=== PATIENT | male | born 1980 | race Caucasian/White ===

== ENCOUNTER 2019-09-07 12:47 | Emergency (ER) | payer MEDICAID, SELFPAY ==
[2019-09-07 12:48] VITALS: BP 159/75; PULSE 91; RESP 16; TEMP 36.1; BMI 37.9
[2019-09-07 13:57] LABS: Absolute Lymphocyte Count 1.84 X10^3/uL (0.83-4.51); Absolute Neutrophil Count 2.4 X10^3/uL (2.0-7.7); Basophil# 0.03 X10^3/uL; Basophil% 0.6 % (0-1); Eosinophil# 0.15 X10^3/uL; Hematocrit 44.8 % (40-54); Hemoglobin 15.2 g/dL (13.0-16.5); Lymphocyte # 1.84 X10^3/ul (4.0); Lymphocyte % 37.2 % (19-41); Mean Corp Hgb Conc 33.9 g/dL (32-36); Mean Corpuscular Hgb 31.6 pg (27.0-32.0); Mean Corpuscular Volume 93.1 fL (80-94); Monocyte# 0.47 X10^3/uL; Monocyte% 9.5 % (0-10); NRBC Flagged by Analyzer 0 % (0-5); Neutrophil # 2.37 X10^3/uL (2.7-7.7); Neutrophil % 48.1 % (47-70); Platelet Count 211 K/mm3 (150-450); RBC Distribution Width CV 12.7 % (11.6-14.6); RBC Distribution Width SD 43.2 fl (35.1-43.9); Red Blood Count 4.81 M/mm3 (4.6-6.2); White Blood Count 4.9 K/mm3 (4.4-11.0)
--- NOTE | 2019-09-07 14:02 | ED.DCSUM_ITS ---
History of Present Illness Chief Complaint: Lower Extremity Injury Informant: Patient Narrative: Patient presents the emergency department with lower extremity swelling redness and pain in the left lateral thigh. Unknown trauma. Patient reportedly has had seen his PCP for 2 years. Last blood work that was done was about a year ago. Patient denies bumping his leg stumbling tripping or self harming. Past Medical History - Allergies and Home Meds Allergies/Adverse Reactions: Allergies No Known Allergies Allergy (Verified 09/07/19 12:50) Primary Care Physician: Kierra Jama MD [NON-STAFF] - As soon as possible Smoking Status: Current every day smoker Review of Systems General: Denies: Chills, Fever, Sweats Eyes: Denies: Visual changes - bilaterally, Diplopia ENT: Denies: Rhinorrhea, Sore throat Cardiovascular: Denies: Chest pain, Palpitations Respiratory: Denies: Dyspnea, Cough, Dyspnea on exertion Gastrointestinal: Denies: Abdominal pain, Nausea, Vomiting, Diarrhea, Melena, He matochezia Genitourinary: Denies: Dysuria, Hematuria, Frequency Musculoskeletal: Reports: Swelling, Extremity Pain. Denies: Back pain Skin: Reports: Rash. Denies: Wounds Neurological: Denies: Headache, Weakness, Numbness Physical Exam Vital Signs/Narrative: Vital Signs Temp Pulse Resp BP 09/07/19 12:48 97.0 F L 91 16 159/75 H Inital Vital Signs reviewed: Yes General: Well nourished, Well developed, No Acute Distress Head: Normocephalic, Atraumatic Eyes: Perrl, EOMI ENT: Moist mucous membranes, No rhinorrhea Neck: Supple, Nontender Cardiovascular: Regular rate, Regular rhythm, No murmurs Respiratory: No distress, CTA bilaterally, Chest nontender Abdomen: Soft, Nontender, Nondistended, Normal bowel sounds Back: Nontender, Normal Inspection Extremities: Tenderness - Patient has tenderness to palpation over the inferior lateral left thigh. There is no ecchymosis. There is no swelling erythema., Edema - Patient has bilateral 1+ pitting edema of the lower extremity. There is redness but it appears to be due to capillary break it is not blanching and gives that appearance. It is not necessarily warm and does not give any suggestion of cellulitis. Skin: Normal color, No rash Neurological: Alert, Oriented x3, Cranial nerves II-XII grossly intact, Normal Strength, Normal Sensation Psychological: Normal affect, Normal Mood Diagnostic/Tx/Re-eval - Medical Decision Making Basic labs were essentially normal. I will place the patient on a diuretic for the next few days. This should help with the lower extremity edema. He will most likely benefit from some compression stockings. He is a heavy smoker and morbidly obese and I suspect he is developing venous insufficiency. As far as the lateral thigh pain I do not think this represents DVT as it is lateral and he has symmetric edema. There is no known trauma. He is able to ambulate so I do not think he has a fractured femur. Patient will be encouraged to follow-up with primary care. ED Disposition - Plan for ED Patient: Disposition: Home or Assisted Living Diagnosis: Thigh pain, Lymphedema Instructions: Lymphedema Prescriptions: Furosemide [Lasix] 40 mg PO DAILY #5 tab Prescription Printed Referrals: Kierra Jama MD [NON-STAFF] - As soon as possible Additional Instructions: I would strongly consider compression stockings to help with the removal of the edema.
[2019-09-07 14:13] LABS: ALB/GLOB Ratio 0.9 RATIO (0.9-2.4); AST(SGOT) 64 U/L (15-37); Alanine Aminotransfer ALT/SGPT 126 U/L (16-61); Albumin, Serum 3.5 g/dL (3.2-5.0); Alkaline Phosphatase 152 U/L (45-117); Anion Gap 4 (5-15); BUN 11 mg/dL (7-18); BUN/Creat Ratio 14.3 RATIO (10-20); Calcium,Total 8.8 mg/dL (8.5-10.1); Chloride 101 mmol/L (98-107); Creatinine, Serum 0.77 mg/dL (0.70-1.30); EST Glomerular Filtration Rate 119 mL/min (>60); Est Glom Filt Rate - Afr Amer 143 mL/min (>60); Estimated Creatinine Clearance 134.46 ml/min; Globulin 3.8 g/dL (2.2-4.2); Glucose 111 mg/dL (74-106); Protein, Total 7.3 g/dL (6.4-8.2); Sodium Level 138 mmol/L (136-145)
--- NOTE | 2019-09-07 14:21 | RAD_ITS ---
STUDY: X-RAY - LEFT FEMUR REASON FOR STUDY: Male, 39 years old. Left leg pain, pt states for awhile -- NKI TECHNIQUE: 4 view(s) of the femur. COMPARISON: None. FINDINGS: Normal visualized femur. Normal visualized soft tissue structure. RAD/Femur Min 2 Views IMPRESSION: Normal x-ray examination of the femur. Electronically Signed: Will Wren, at 14:55 EDT , Service support ,
== END 2019-09-07 15:16 | disposition home or self-care (01) ==
PROVIDERS: Emergency Provider Emergency Medicine; PCP Family Medicine
DX: M79.652 Pain in left thigh (principal); I89.0 Lymphedema, not elsewhere classified; E66.01 Morbid (severe) obesity due to excess calories; F17.200 Nicotine dependence, unspecified, uncomplicated
CPT/HCPCS: 73552; 80053; 85025; 99282

== ENCOUNTER 2022-12-11 17:10 | Inpatient (IN) | payer MEDICAID, SELFPAY ==
[2022-12-11] VITALS (11 sets, daily range): BP systolic 118–140; BP diastolic 59–96; PULSE 71–118; RESP 14–26; TEMP 36.5–38.6; O2SAT 92–96; BMI 37.1
--- NOTE | 2022-12-11 17:29 | EKG12_ITS ---
Test Reason : WEAKNESS/CONFUSION Blood Pressure : / mmHG Vent. Rate : 085 BPM Atrial Rate : 085 BPM P-R Int : 184 ms QRS Dur : 106 ms QT Int : 334 ms P-R-T Axes : 015 040 029 degrees QTc Int : 397 ms Normal sinus rhythm Low voltage QRS Incomplete right bundle branch block Borderline ECG Confirmed by TRENA TONY, RG ([id number]), editor index ROSEMARY PRADO ([id number]) on 12/13/2022 10:17:20 AM Referred By: Confirmed By:RG ALBRECHT MD
--- NOTE | 2022-12-11 17:34 | EX.ED.DYSGE1 ---
HPI History of Present Illness Chief Complaint: Fever Informant: family Onset/Context/Timing Onset: Today Narrative Narrative: Patient presents with family secondary to fever and change in activity. Patient reportedly ate breakfast this morning and was his normal self. 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 When she picked him up at home she checked his temperature and was found to be 103. He was given Tylenol at 230 this afternoon. He did drink 2 bottles of water with electrolytes. Patient is had increasing sleepiness. Family is concerned for possible UTI or pneumonia. He has had mild cough. There reportedly were no known ill exposures at work. [facility] Medical History Autism COPD (chronic obstructive pulmonary disease) High cholesterol OCD (obsessive compulsive disorder) Home Medications ascorbic acid (vitamin C) 500 mg tablet (Vitamin C) 1,000 mg PO DAILY@0800 04/05/13 [History Last Taken 03/05/16] benztropine 2 mg tablet 1 mg PO BID 04/05/13 [History Last Taken 03/05/16] divalproex 500 mg tablet,extended release 24 hr 1,000 mg PO QHS 04/05/13 [History Last Taken 03/04/16] divalproex 500 mg tablet,extended release 24 hr 500 mg PO DAILY@0800 04/05/13 [History Last Taken 03/05/16] docusate sodium 100 mg capsule (DOK) 200 mg PO BID 04/05/13 [History Last Taken 03/05/16] gabapentin 300 mg capsule 300 mg PO BID 04/05/13 [History Last Taken 03/05/16] loratadine 10 mg tablet (Allergy Relief (loratadine)) 10 mg PO DAILY 04/05/13 [History Last Taken 03/05/16] montelukast 10 mg tablet 10 mg PO QHS 04/05/13 [History Last Taken 03/04/16] vitamin E (dl, acetate) 180 mg (400 unit) capsule 400 units PO BID 04/05/13 [History Last Taken 03/05/16] bupropion HCl 150 mg 24 hr tablet, extended release 150 mg PO DAILY 03/31/14 [History Last Taken 03/05/16] Risperdal 1.5 mg PO BID 07/29/15 [History Last Taken 03/05/16] quetiapine 50 mg tablet (Seroquel) 150 mg PO QHS 03/05/16 [History Last Taken 03/05/16] Gabapentin [Gralise] 600 mg PO QHS 03/30/16 [History Last Taken Unknown] albuterol sulfate 90 mcg/actuation aerosol inhaler (ProAir HFA) 2 puff inhalation Q4H PRN PRN Shortness Of Breath 03/30/16 [History Last Taken Unknown] Allergy/AdvReac Type Severity Reaction Status Date / Time No Known Allergies Allergy Verified 12/11/22 17:11 Social History Smoking Status: Current every day smoker tobacco type: cigarettes ROS ROS ED ROS Narrative Patient sleeping throughout interview and exam. History obtained by family. EXAM Physical Exam Const Vital Signs: 12/11/22 17:12 12/11/22 17:59 12/11/22 18:01 Temperature 101.5 F H 101.5 F H Temperature Source Oral Oral Pulse Rate 101 H 101 H Respiratory Rate 26 H 26 H Respiratory Effort Respiratory Pattern Blood Pressure 129/77 H 129/77 H Blood Pressure Mean 94 94 Pulse Ox 92 92 Oxygen Delivery Method Room Air Room Air Room Air Oxygen Flow Rate (L/min) 12/11/22 20:48 12/11/22 20:48 12/11/22 18:14 Temperature 98.8 F Temperature Source Temporal Pulse Rate 98 116 H Respiratory Rate 16 14 Respiratory Effort Normal Non-Labored Respiratory Pattern Normal Blood Pressure 140/64 H Blood Pressure Mean 89 Pulse Ox 96 92 Oxygen Delivery Method Nasal Cannula Room Air Oxygen Flow Rate (L/min) 2 12/11/22 19:14 12/11/22 20:14 12/11/22 21:14 Temperature 98 F 97.8 F 98 F Temperature Source Temporal Temporal Temporal Pulse Rate 114 H 118 H 115 H Respiratory Rate 14 14 16 Respiratory Effort Respiratory Pattern Blood Pressure 140/59 H 122/96 H 118/63 Blood Pressure Mean 86 104 81 Pulse Ox 92 92 93 Oxygen Delivery Method Room Air Room Air Nasal Cannula Oxygen Flow Rate (L/min) 2 12/11/22 22:00 12/11/22 22:01 Temperature 97.8 F 98 F Temperature Source Temporal Temporal Pulse Rate 109 H 111 H Respiratory Rate 14 14 Respiratory Effort Respiratory Pattern Blood Pressure 123/78 H 131/81 H Blood Pressure Mean 93 97 Pulse Ox 95 96 Oxygen Delivery Method Nasal Cannula Nasal Cannula Oxygen Flow Rate (L/min) 2 2 Positive well nourished and well developed General Appearance ED: well developed HEENT Reports moist mucous membranes Neck no lymphadenopathy Chest Wall inspection of chest normal and palpation of chest normal Resp normal respiratory effort Resp Narrative: Diminished lung sounds bilateral bases. Cardio regular rhythm Rate: tachycardic GI GI Narrative: Abdomen soft and nontender. Extremity Extremity Narrative: Superficial abrasions noted over the knees bilaterally. No evidence of infection. Neuro Neuro Narrative: Patient sleeping at the time of my exam initial exam. MDM MDM MDM Narrative Medical decision making narrative: Sepsis work-up is initiated to include urinalysis, blood work, cultures. Swab for COVID and influenza is sent. Chest x-ray obtained given the patient's cough to evaluate for pneumonia. Patient had been given Tylenol prior to arrival and was given ibuprofen to help with fever control. Lab Data Attestation: I reviewed the patient's lab results. Labs: Laboratory Results - last 24 hr 12/11/22 12/11/22 12/11/22 17:50 17:50 17:50 WBC 15.2 H RBC 4.65 Hgb 14.5 Hct 41.4 MCV 89.0 MCH 31.2 MCHC 35.0 RDW Std Deviation 40.7 RDW Coeff of Dony 12.5 Plt Count 202 MPV 9.7 Immature Gran % (Auto) [employer]IST Neut % (Auto) H[employer] SERVICES SPECIALIST Lymph % (Auto) HUMAN RESOURCES SERVICES SPECIALIST Valley % (Auto) HUM[employer] SERVICES SPECIALIST Eos % (Auto) H[employer] SERVICES SPECIALIST Baso % (Auto) H[employer] SERVICES SPECIALIST Absolute Neuts (auto) 10.6 H Absolute Lymphs (auto) 2.28 Total Counted 100 Neutrophils % (Manual) 56 Band Neutrophils % 8 H Lymphocytes % (Manual) 15 L Monocytes % (Manual) 14 H Eosinophils % (Manual) 1 Metamyelocytes % 5 H Myelocytes % 1 H Nucleated RBC % 0.1 Diff Path Review May foll Platelet Estimate ADEQUATE RBC Morphology NORM C+C PT 13.1 INR 1.0 APTT 29.6 Sodium 133 L Potassium 4.5 Chloride 96 L Carbon Dioxide 31.0 Anion Gap 6 BUN 13 Creatinine 0.80 Est GFR (MDRD) Af Amer 136 Est GFR (MDRD) Non-Af 112 BUN/Creatinine Ratio 16.4 Glucose 115 H Lactic Acid Calcium 9.7 Total Bilirubin 0.30 AST 120 H ALT 168 H Alkaline Phosphatase 339 H Total Protein 8.1 Albumin 3.6 Globulin 4.5 H Albumin/Globulin Ratio 0.8 L Urine Color Urine Clarity Urine pH Ur Specific Everly Urine Protein Urine Glucose (UA) Urine Ketones Urine Occult Blood Urine Nitrite Urine Bilirubin Urine Urobilinogen Ur Leukocyte Esterase Urine RBC Urine WBC Ur Squamous Epith Cells Urine Bacteria Urine Mucus 12/11/22 12/11/22 17:50 19:00 WBC RBC Hgb Hct MCV MCH MCHC RDW Std Deviation RDW Coeff of Dony Plt Count MPV Immature Gran % (Auto) Neut % (Auto) Lymph % (Auto) Valley % (Auto) Eos % (Auto) Baso % (Auto) Absolute Neuts (auto) Absolute Lymphs (auto) Total Counted Neutrophils % (Manual) Band Neutrophils % Lymphocytes % (Manual) Monocytes % (Manual) Eosinophils % (Manual) Metamyelocytes % Myelocytes % Nucleated RBC % Diff Path Review Platelet Estimate RBC Morphology PT INR APTT Sodium Potassium Chloride Carbon Dioxide Anion Gap BUN Creatinine Est GFR (MDRD) Af Amer Est GFR (MDRD) Non-Af BUN/Creatinine Ratio Glucose Lactic Acid 1.4 Calcium Total Bilirubin AST ALT Alkaline Phosphatase Total Protein Albumin Globulin Albumin/Globulin Ratio Urine Color Yellow Urine Clarity Clear Urine pH 7.0 Ur Specific Everly 1.010 Urine Protein 30 H Urine Glucose (UA) Normal Urine Ketones 5 H Urine Occult Blood Negative Urine Nitrite Negative Urine Bilirubin Negative Urine Urobilinogen 4 H Ur Leukocyte Esterase 25 H Urine RBC 0 SEEN Urine WBC 0-5 SEEN Ur Squamous Epith Cells 0 SEEN Urine Bacteria 0 SEEN Urine Mucus 0 SEEN Radiography Chest X-Ray - ED: 1 View, Read by ED Physician, Normal, Heart, Lungs and Mediastinum Diagnostic Testing: Clinical Impression(s) from Imaging Studies Chest X-Ray 12/11/22 17:53 IMPRESSION: Question mild vascular congestion. Electronically Signed: Misha Horner DO at 18:06 EDT Reading Location ID and State: [facility] / [place] Tel [phone], Service support , Gallbladder Ultrasound 12/11/22 19:18 IMPRESSION: 1. Limited study due to bowel gas and patient condition. The pancreatic tail and lower pole of the right kidney are poorly visualized. 2. Otherwise normal right upper quadrant abdominal ultrasound. Electronically Signed: Misha Horner DO at 20:19 EDT , Abdomen/Pelvis CT 12/11/22 20:34 IMPRESSION: 1. Prominent liver with geographic fatty infiltration. There is no focal mass. Scattered granulomata are noted. 2. Splenomegaly with calcified granuloma. 3. Otherwise normal CT of the abdomen and pelvis. 4. Volume loss in the atelectasis at the left lung base with calcified pleural plaque. Question asbestos exposure. Electronically Signed: Misha Horner DO at 21:20 EDT , EKG Initial EKG: Attestation: I personally reviewed and interpreted this EKG as follows: Interpretation: Sinus Rhythm (Sinus 85 with no acute ischemia.) Treatment and Re-Evaluation :: CBC reveals a white count of 15.2 with 8 bands noted. Coags unremarkable. Chemistry studies reveal a sodium of 133 and a chloride of 96. Renal function is normal. AST is 120 and ALT is 168. Alk phos is 339. Lactic acid is 1.4. Urinalysis reveals no evidence of acute infection. Chest x-ray per my interpretation reveals no evidence of infiltrate. I did review prior labs. 3 years ago the patient had labs here that did reveal elevated LFTs. In September 2021 he had labs at [facility] that revealed normal LFTs. In July 2022 he was seen in [place] and had elevated LFTs with a negative ultrasound of his gallbladder at that time. Gallbladder ultrasound obtained tonight and is unremarkable. When he went back to reevaluate the patient he is now alert and appropriate. He denies complaints. His abdomen is soft with no focal tenderness. When I take him off of the 2 L of oxygen nursing staff placed him on he drops to 87% on room air. He is placed back on oxygen. CT scan of the abdomen and pelvis is obtained and reveals no acute findings. He does have a small scabbed wound to the right shoulder posteriorly, but nothing that appears infected to cause a temperature of 103 and a leukocytosis with bandemia. With patient having mild hypoxia he will require observation for further treatment. Lung sounds are clear I do not feel that he needs breathing treatments at this time. I will speak with the hospitalist. Addendum: When the hospitalist came to the ER to see the patient he took the patient off of oxygen. After 8 minutes patient still had sats in the mid to high 90s. When he called with this information were back and took the patient off oxygen again and watched him for approximately 15 to 20 minutes. His O2 sat remained around 91 to 92%. I did asked nursing staff to ambulate the patient. With ambulation his O2 sat dropped to 78% on room air. He was placed back on nasal cannula and patient will be admitted observation status. Discharge Plan Dx/Rx/DC Orders Clinical Impression: Hypoxia, URI (upper respiratory infection), Fever, Leukocytosis, Bandemia Disposition [facility]
[2022-12-11] MEDS: Ibuprofen 600 MG Tablet PO (17:42)
[2022-12-11] MEDS: 0.9% Normal Saline 1,000 ML 150 ML IV (17:47)
--- NOTE | 2022-12-11 17:53 | RAD_ITS ---
STUDY: X-RAY CHEST REASON FOR EXAM: Male, 42 years old. Cough and fever. TECHNIQUE: Single AP portable view of the chest. COMPARISON: June 04, 2016. FINDINGS: There is minimal perihilar interstitial prominence. No consolidation or mass. There is no demonstrated pleural abnormality. Normal size heart. Normal mediastinum and ajh. Normal visualized pulmonary arteries. Normal visualized aortic arch and descending thoracic aorta. Normal visualized thoracic spine. Normal visualized ribs, clavicles, and shoulders. There is no demonstrated abnormality of the visualized soft tissue structures of the upper abdomen. RAD/Chest 1 View (Portable) IMPRESSION: Question mild vascular congestion. Electronically Signed: Misha Horner DO at 18:06 EDT ,
[2022-12-11 18:02] LABS: Hematocrit 41.4 % (40-54); Hemoglobin 14.5 g/dL (13.0-16.5); Mean Corpuscular Hgb 31.2 pg (27.0-32.0); Mean Platelet Vol. 9.7 fl (6.2-12.0); NRBC Flagged by Analyzer 0.1 % (0-5); POSITIVE DIFFERENTIAL YES; Platelet Count 202 K/mm3 (150-450); RBC Distribution Width CV 12.5 % (11.6-14.6); RBC Distribution Width SD 40.7 fl (35.1-43.9); Red Blood Count 4.65 M/mm3 (4.6-6.2); White Blood Count 15.2 K/mm3 (4.4-11.0)
[2022-12-11 18:16] LABS: Prothrombin Time (Protime)PT. 13.1 SECONDS (11.7-14.9)
[2022-12-11 18:17] LABS: Partial Thromboplast Time 29.6 Seconds (24.1-36.2)
[2022-12-11 18:29] LABS: ALB/GLOB Ratio 0.8 RATIO (0.9-2.4); AST(SGOT) 120 U/L (15-37); Alanine Aminotransfer ALT/SGPT 168 U/L (16-61); Albumin, Serum 3.6 g/dL (3.2-5.0); Alkaline Phosphatase 339 U/L (45-117); Anion Gap 6 (5-15); BUN 13 mg/dL (7-18); BUN/Creat Ratio 16.4 RATIO (10-20); Calcium,Total 9.7 mg/dL (8.5-10.1); Chloride 96 mmol/L (98-107); EST Glomerular Filtration Rate 112 mL/min (>60); Est Glom Filt Rate - Afr Amer 136 mL/min (>60); Globulin 4.5 g/dL (2.2-4.2); Glucose 115 mg/dL (74-106); Potassium 4.5 mmol/L (3.5-5.1); Protein, Total 8.1 g/dL (6.4-8.2); Sodium Level 133 mmol/L (136-145)
[2022-12-11 18:30] LABS: Lactic Acid 1.4 mmol/L (0.4-1.9)
[2022-12-11 18:31] LABS: Differential Indicated SCAN CRITERIA MET
[2022-12-11 18:53] LABS: Scan Smear per Review Criteria MANUAL DIFF
[2022-12-11 18:58] LABS: Eosinophil 1 % (0-5); Lymphocyte 15 % (19-41); Metamyelocyte 5 % (0-1); Monocyte 14 % (0-10); Myelocyte 1 % (0-0); Neutrophil-Band 8 % (0-5); Neutrophil-Segmented 56 % (47-70); Platelet Estimate ADEQUATE (ADEQ); Total Cells Counted 100 (MANUAL DIFF)
[2022-12-11 18:59] LABS: Red Cell Morphology NORM C+C NORMAL (NORM C&C)
[2022-12-11 19:01] LABS: Absolute Lymphocyte Count 2.28 X10^3/uL (0.83-4.51); Lymphocyte # 2.28 X10^3/ul (0.83-4.51)
[2022-12-11 19:02] LABS: Absolute Neutrophil Count 10.6 X10^3/uL (2.0-7.7); Neutrophil # 10.64 X10^3/uL (2.7-7.7)
[2022-12-11 19:03] LABS: Monocyte# 2.13 X10^3/uL
[2022-12-11 19:11] LABS: Bacteria 0 SEEN /hpf (None Seen); Mucous, Urine 0 SEEN /hpf (<or=2+); Red Blood Cells-Urine 0 SEEN /hpf (0-5); Squamous Epithelial Cells - UA 0 SEEN /hpf (0-5)
[2022-12-11 19:16] LABS: Color, Urine Yellow (Yellow); Glucose, Dipstick Normal (Normal); Ketone-Dipstick 5 mg/dl (Negative); Leukocyte Esterase-Dipstick 25 /ul (Negative); Nitrite-Dipstick Negative (Negative); Occult Blood-Urine Negative /ul (Negative); Protein-Dipstick 30 mg/dl (Negative); Urine Bilirubin Dipstick Negative (Negative); Urine Clarity Clear (Clear); Urine Urobilinogen 4 mg/dl (Normal)
--- NOTE | 2022-12-11 19:18 | US_ITS ---
STUDY: ABDOMINAL ULTRASOUND - RIGHT UPPER QUADRANT REASON FOR VISIT: Male, 42 years old fever. Abnormal laboratories. TECHNIQUE: Ultrasound evaluation of the right upper quadrant was performed with real-time and static moffett-scale imaging. TECHNICAL QUALITY: Examination limited due to the patient?s condition. COMPARISON: None. FINDINGS: Liver: The liver measures 17.6 cm. There is normal echogenicity of the liver. The bile ducts are within normal limits. There is hepatic color flow. The direction of portal flow is hepatopetal. There is no demonstrated mass lesion. Gallbladder: Normal distended gallbladder. The gallbladder wall measures 3 mm. There is a negative sonographic Hernández''s sign. There is no pericholecystic fluid. There are no gallstones. Common Bile Duct (C.B.D.): The common bile duct measures 4 mm. Pancreas: Normal size of the head and body of the pancreas. Pancreatic tail is obscured. There is normal echogenicity of the pancreas. There is no demonstrated pancreatic mass or cyst. Right Kidney: The lower pole of the right kidney is partially obscured by bowel gas. The right kidney measures 11.6 cm. Normal renal cortex. The right cortex measures 1.4 cm. There is no demonstrated renal mass or cyst. There is no right hydronephrosis. US/Gallbladder IMPRESSION: 1. Limited study due to bowel gas and patient condition. The pancreatic tail and lower pole of the right kidney are poorly visualized. 2. Otherwise normal right upper quadrant abdominal ultrasound. Electronically Signed: Misha Horner DO at 20:19 EDT ,
[2022-12-11 19:52] LABS: White Blood Cells 0-5 SEEN /hpf (0-5)
--- NOTE | 2022-12-11 20:34 | CT_ITS ---
STUDY: CT ABDOMEN AND PELVIS WITH CONTRAST REASON FOR EXAM: Male, 42 years old. Fever and abdominal pain. RADIATION DOSAGE (If Supplied By Facility): CTDIvol = ( 20.31 ) mGy, DLP = ( 1426.53 ) mGycm TECHNIQUE: IV 100mL [id number]-[id number] was administered. Transaxial images were obtained from the dome of the diaphragm to the symphysis pubis. Multiplanar coronal and sagittal images were reformatted. Individualized Dose Optimization Techniques Were Used For This CT. COMPARISON: Abdominal ultrasound, December 11, 2022. FINDINGS: Dependent changes at both lung bases, left greater than right. There is posterior pleural calcifications noted at the left lung base. Right mediastinal shift to the left. The heart is normal in size. Geographic fatty infiltration of the mildly prominent liver with scattered calcified granulomata. There is no enhancing mass. Normal gallbladder and extrahepatic biliary system. There are multiple benign calcified granulomata of the enlarged spleen. Normal pancreas. Normal bilateral adrenal glands. Normal visualized stomach. Normal small intestine. Normal colon. Question prior appendectomy. Normal abdominal aorta. 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 No retroperitoneal adenopathy. Normal right kidney. Normal left kidney. Normal urinary bladder. Normal prostate. No pelvic lymphadenopathy. No free air or free fluid is seen within the abdominal cavity. Normal abdominal wall. There are diffuse degenerative changes of the visualized lumbar spine. CT/Abdomen/Pelvis W IV Cont ONLY IMPRESSION: 1. Prominent liver with geographic fatty infiltration. There is no focal mass. Scattered granulomata are noted. 2. Splenomegaly with calcified granuloma. 3. Otherwise normal CT of the abdomen and pelvis. 4. Volume loss in the atelectasis at the left lung base with calcified pleural plaque. Question asbestos exposure. Electronically Signed: Misha Horner DO at 21:20 EDT ,
--- NOTE | 2022-12-11 22:39 | HP.PCM.HOS_ITS ---
HPI - General General Date of Admission: 12/11/22 Date of Service: 12/12/22 Chief Complaint: lethargic, fever HPI Narrative ELIAS LOPEZ, is a 42 M who presents with mother after fever. The patient had temp 103 which improved with Tylenol. He was more sleepy in the afternoon. No known sick contacts. Patient does not give much history, but states he has no trouble breathing. Patient has hx of autism. There are no known sick contacts. Patient's only concern is the scab on his back. CXR here showed no sign of pneumonia. UA with leuks however no nitrates/WBC . The blood cultures were sent, as well as urine cultures. He was 87% on RA. Then stabilized to 90-92% on Room air. He responded well to NC 3 liters. He was ambulated, and fell to 78% and was admitted to observation for hypoxia evaluation and monitoring. FORMERLY [facility] Medical History Autism COPD (chronic obstructive pulmonary disease) High cholesterol OCD (obsessive compulsive disorder) Home Medications ascorbic acid (vitamin C) 500 mg tablet (Vitamin C) 1,000 mg PO DAILY@0800 04/05/13 [History Last Taken 03/05/16] benztropine 2 mg tablet 1 mg PO BID 04/05/13 [History Last Taken 03/05/16] divalproex 500 mg tablet,extended release 24 hr 1,000 mg PO QHS 04/05/13 [History Last Taken 03/04/16] divalproex 500 mg tablet,extended release 24 hr 500 mg PO DAILY@0800 04/05/13 [History Last Taken 03/05/16] docusate sodium 100 mg capsule (DOK) 200 mg PO BID 04/05/13 [History Last Taken 03/05/16] gabapentin 300 mg capsule 300 mg PO BID 04/05/13 [History Last Taken 03/05/16] loratadine 10 mg tablet (Allergy Relief (loratadine)) 10 mg PO DAILY 04/05/13 [History Last Taken 03/05/16] montelukast 10 mg tablet 10 mg PO QHS 04/05/13 [History Last Taken 03/04/16] vitamin E (dl, acetate) 180 mg (400 unit) capsule 400 units PO BID 04/05/13 [History Last Taken 03/05/16] bupropion HCl 150 mg 24 hr tablet, extended release 150 mg PO DAILY 03/31/14 [History Last Taken 03/05/16] Risperdal 1.5 mg PO BID 07/29/15 [History Last Taken 03/05/16] quetiapine 50 mg tablet (Seroquel) 150 mg PO QHS 03/05/16 [History Last Taken 03/05/16] Gabapentin [Gralise] 600 mg PO QHS 03/30/16 [History Last Taken Unknown] albuterol sulfate 90 mcg/actuation aerosol inhaler (ProAir HFA) 2 puff inhalation Q4H PRN PRN Shortness Of Breath 03/30/16 [History Last Taken Unknown] Allergy/AdvReac Type Severity Reaction Status Date / Time No Known Allergies Allergy Verified 12/11/22 17:11 Social History Smoking Status: Current every day smoker tobacco type: smokeless tobacco Vital Signs Vital Signs Vital Signs: 12/11/22 17:12 12/11/22 17:59 12/11/22 18:01 Temperature 101.5 F H 101.5 F H Temperature Source Oral Oral Pulse Rate 101 H 101 H Respiratory Rate 26 H 26 H Respiratory Effort Respiratory Pattern Blood Pressure 129/77 H 129/77 H Blood Pressure Mean 94 94 Pulse Ox 92 92 Oxygen Delivery Method Room Air Room Air Room Air Oxygen Flow Rate (L/min) 12/11/22 20:48 12/11/22 20:48 12/11/22 18:14 Temperature 98.8 F Temperature Source Temporal Pulse Rate 98 116 H Respiratory Rate 16 14 Respiratory Effort Normal Non-Labored Respiratory Pattern Normal Blood Pressure 140/64 H Blood Pressure Mean 89 Pulse Ox 96 92 Oxygen Delivery Method Nasal Cannula Room Air Oxygen Flow Rate (L/min) 2 12/11/22 19:14 12/11/22 20:14 12/11/22 21:14 Temperature 98 F 97.8 F 98 F Temperature Source Temporal Temporal Temporal Pulse Rate 114 H 118 H 115 H Respiratory Rate 14 14 16 Respiratory Effort Respiratory Pattern Blood Pressure 140/59 H 122/96 H 118/63 Blood Pressure Mean 86 104 81 Pulse Ox 92 92 93 Oxygen Delivery Method Room Air Room Air Nasal Cannula Oxygen Flow Rate (L/min) 2 12/11/22 22:00 12/11/22 22:01 Temperature 97.8 F 98 F Temperature Source Temporal Temporal Pulse Rate 109 H 111 H Respiratory Rate 14 14 Respiratory Effort Respiratory Pattern Blood Pressure 123/78 H 131/81 H Blood Pressure Mean 93 97 Pulse Ox 95 96 Oxygen Delivery Method Nasal Cannula Nasal Cannula Oxygen Flow Rate (L/min) 2 2 Weight Weight: 251 lb 12.286 oz Body Mass Index (BMI) 37.1 Physical Exam Const alert, no apparent distress and healthy appearing HEENT normocephalic and head/scalp atraumatic Eyes PERRL Resp normal respiratory effort Cardio regular rate and regular rhythm GI normal to inspection, nondistended, normoactive bowel sounds Results Medical Records Data Attestation: I reviewed the patient's medical records Lab / Micro Data Result Diagrams: 12/11/22 17:50 12/11/22 17:50 Labs: Laboratory Results - last 24 hr 12/11/22 17:50: WBC 15.2 H, RBC 4.65, Hgb 14.5, Hct 41.4, MCV 89.0, MCH 31.2, MCHC 35.0, RDW Std Deviation 40.7, RDW Coeff of Dony 12.5, Plt Count 202, MPV 9.7, Immature Gran % (Auto) PERSONNEL ASSOCIATE, Neut % (Auto) PERSONNEL ASSOCIATE, Lymph % (Auto) PERSONNEL ASSOCIATE, [place] % (Auto) PERSONNEL ASSOCIATE, Eos % (Auto) PERSONNEL ASSOCIATE, Baso % (Auto) PERSONNEL ASSOCIATE, Absolute Neuts (auto) 10.6 H, Absolute Lymphs (auto) 2.28, Total Counted 100, Neutrophils % (Manual) 56, Band Neutrophils % 8 H, Lymphocytes % (Manual) 15 L, Monocytes % (Manual) 14 H, Eosinophils % (Manual) 1, Metamyelocytes % 5 H, Myelocytes % 1 H, Nucleated RBC % 0.1, Diff Path Review October, Platelet Estimate ADEQUATE, RBC Morphology NORM C+C 12/11/22 17:50: PT 13.1, INR 1.0, APTT 29.6 12/11/22 17:50: Sodium 133 L, Potassium 4.5, Chloride 96 L, Carbon Dioxide 31.0, Anion Gap 6, BUN 13, Creatinine 0.80, Est GFR (MDRD) Af Amer 136, Est GFR (MDRD) Non-Af 112, BUN/Creatinine Ratio 16.4, Glucose 115 H, Calcium 9.7, Total Bilirubin 0.30, AST 120 H, ALT 168 H, Alkaline Phosphatase 339 H, Total Protein 8.1, Albumin 3.6, Globulin 4.5 H, Albumin/Globulin Ratio 0.8 L 12/11/22 17:50: Lactic Acid 1.4 12/11/22 19:00: Urine Color Yellow, Urine Clarity Clear, Urine pH 7.0, Ur Specific [place] 1.010, Urine Protein 30 H, Urine Glucose (UA) Normal, Urine Ketones 5 H, Urine Occult Blood Negative, Urine Nitrite Negative, Urine Bilirubin Negative, Urine Urobilinogen 4 H, Ur Leukocyte Esterase 25 H, Urine RBC 0 SEEN, Urine WBC 0-5 SEEN, Ur Squamous Epith Cells 0 SEEN, Urine Bacteria 0 SEEN, Urine Mucus 0 SEEN Micro: Microbiology 12/11/22 18:09 Nasal Secretion SARS-CoV-2 & FLU Antigen (Rapid) - Final Radiology Impression Chest X-Ray 12/11/22 17:53 IMPRESSION: Question mild vascular congestion. Electronically Signed: Misha Horner DO at 18:06 EDT Reading Location ID and State: [employer] [place] / [place] Tel [phone], Service support , Gallbladder Ultrasound 12/11/22 19:18 IMPRESSION: 1. Limited study due to bowel gas and patient condition. The pancreatic tail and lower pole of the right kidney are poorly visualized. 2. Otherwise normal right upper quadrant abdominal ultrasound. Electronically Signed: Misha Horner DO at 20:19 EDT Reading Location ID and State: [employer] [place] / [place] Tel [phone], Service support , Abdomen/Pelvis CT 12/11/22 20:34 IMPRESSION: 1. Prominent liver with geographic fatty infiltration. There is no focal mass. Scattered granulomata are noted. 2. Splenomegaly with calcified granuloma. 3. Otherwise normal CT of the abdomen and pelvis. 4. Volume loss in the atelectasis at the left lung base with calcified pleural plaque. Question asbestos exposure. Electronically Signed: Misha Horner DO at 21:20 EDT Reading Location ID and State: [employer] [place] Tel [phone], Service support , Assessment & Plan Assessment/Plan (1) Hypoxia: (2) Leukocytosis: (3) Fatty liver: (4) Fever: PLAN: Plan Hypoxia - Known to be low 90's on walk test done prior (90-94%) - Will likely need o2 walk test - no known lung disease to cause this. Fever workup - No documented fevers here. No cough on exam. - Blood cultures and urine culture sent. Flu neg. Ct abdomen pelvis without cause. CXR without PNA. At this point no source of infection. - Check procalcitonin - If fever overnight, then may start empiric abx, otherwise hold for now - Scabbed wound on back examined, no purulence of fluctuance. Not a likely source of infection. Elevated liver enzymes -Known fatty liver on imaging. Most probable cause is NAFLD. Weight loss is treatment. -Rule out hep a, b, c and check iron/ferritin. AMA and ASMA also ordered. GGT sent. -Will benefit from weight loss. - Needs f/u outpatient Autism history Continue with Heparin for DVT proph. Charges/Coding Visit Charges Inpatient E&M: 99718 Init Hosp L2
[2022-12-12] VITALS (10 sets, daily range): BP systolic 104–144; BP diastolic 57–87; PULSE 74–96; RESP 18; TEMP 36.1–38.6; O2SAT 91–97; BMI 34.7
[2022-12-12] MEDS: 0.9% Normal Saline 1,000 ML 150 ML IV ×2 (00:28→07:57)
[2022-12-12 01:14] LABS: International Normalized Ratio 1.1; Prothrombin Time (Protime)PT. 13.8 SECONDS (11.7-14.9)
[2022-12-12 02:51] LABS: Ferritin 327 ng/mL (26-388); GGTP 391 U/L (15-85); Iron 29 ug/dL (65-175); Iron Binding Capacity,Total 222 ug/dL (250-450)
[2022-12-12 03:34] LABS: Hepatitis B Surface Antibody Non-Reactive; Hepatitis B Surface Antigen Non-Reactive (Nonreactive); Hepatitis C Antibody Non-Reactive (Nonreactive); Procalcitonin 0.31 ng/mL (0.00-0.09)
[2022-12-12] MEDS: Acetaminophen 325 MG Tablet 650 MG PO ×2 (05:28→19:44)
--- NOTE | 2022-12-12 06:47 | PCM.HOSP.N ---
Hospitalist Note VBG ordered to ascertain CO2 status and possible retention in workup ofhypoxia
[2022-12-12 13:35] LABS: Pathologist Review Reviewed
--- NOTE | 2022-12-12 15:27 | PN_ITS ---
Subjective Subjective Patient seen and examined. She was admitted with a complaint of fever which went up to 103 Fahrenheit at home. She was saturating at 87% on room air when he came into the ED Subsequently improved on 3 L of oxygen. He is being managed for hypoxia of unclear etiology. He also had fever but there is no clear source of infection. Patient seen and examined today. He had no complaints and was lying comfortably in bed. He denies shortness of breath, cough, chest pain, nausea vomiting or any other symptoms. Review of systems otherwise negative. Objective Data Objective Data Vital Signs: Vital Signs Temp Pulse Resp BP Pulse Ox O2 Del Method O2 Flow Rate 99.7 F H 85 18 144/79 H 92 Room Air 2 12/12/22 13:57 12/12/22 13:57 12/12/22 13:57 12/12/22 13:57 12/12/22 13:57 12/12/22 14:00 12/12/22 13:57 Oxygen Flow Rate (L/min) 2 Oxygen Delivery Method Room Air Weight: 249 lb 5.485 oz Body Mass Index (BMI) 34.7 Intake & Output: Intake and Output for Last 24 Hours 12/10/22 12/11/22 12/12/22 23:59 23:59 23:59 Intake Total 2457.5 / 2457.5 Output Total 550 / 550 Balance 1907.5 / 1907.5 Lab / Micro Data Result Diagrams: 12/11/22 17:50 12/11/22 17:50 Labs: Laboratory Results - last 24 hr 12/11/22 17:50: WBC 15.2 H, RBC 4.65, Hgb 14.5, Hct 41.4, MCV 89.0, MCH 31.2, MCHC 35.0, RDW Std Deviation 40.7, RDW Coeff of Dony 12.5, Plt Count 202, MPV 9.7, Immature Gran % (Auto) TESTING ANALYST, Neut % (Auto) TESTING ANALYST, Lymph % (Auto) TESTING ANALYST, [place] % (Auto) TESTING ANALYST, Eos % (Auto) TESTING ANALYST, Baso % (Auto) TESTING ANALYST, Absolute Neuts (auto) 10.6 H, Absolute Lymphs (auto) 2.28, Total Counted 100, Neutrophils % (Manual) 56, Band Neutrophils % 8 H, Lymphocytes % (Manual) 15 L, Monocytes % (Manual) 14 H, Eosinophils % (Manual) 1, Metamyelocytes % 5 H, Myelocytes % 1 H, Nucleated RBC % 0.1, Diff Path Review Reviewed, Platelet Estimate ADEQUATE, RBC Morphology NORM C+C 12/11/22 17:50: PT 13.1, INR 1.0, APTT 29.6 12/11/22 17:50: Sodium 133 L, Potassium 4.5, Chloride 96 L, Carbon Dioxide 31.0, Anion Gap 6, BUN 13, Creatinine 0.80, Est GFR (MDRD) Af Amer 136, Est GFR (MDRD) Non-Af 112, BUN/Creatinine Ratio 16.4, Glucose 115 H, Calcium 9.7, Total Bilirub in 0.30, AST 120 H, ALT 168 H, Alkaline Phosphatase 339 H, Total Protein 8.1, Albumin 3.6, Globulin 4.5 H, Albumin/Globulin Ratio 0.8 L 12/11/22 17:50: Lactic Acid 1.4 12/11/22 19:00: Urine Color Yellow, Urine Clarity Clear, Urine pH 7.0, Ur Specific [place] 1.010, Urine Protein 30 H, Urine Glucose (UA) Normal, Urine Ketones 5 H, Urine Occult Blood Negative, Urine Nitrite Negative, Urine Bi lirubin Negative, Urine Urobilinogen 4 H, Ur Leukocyte Esterase 25 H, Urine RBC 0 SEEN, Urine WBC 0-5 SEEN, Ur Squamous Epith Cells 0 SEEN, Urine Bacteria 0 SEEN, Urine Mucus 0 SEEN 12/12/22 00:55: Iron 29 L, TIBC 222 L, Ferritin 327, GGT 391 H, C-React Prot Ext Range 88.50 H 12/12/22 00:55: Procalcitonin 0.31 H, Hep Bs Antigen Non-Reactive, Hep Bs Antibody Non-Reactive, Hepatitis C Antibody Non-Reactive 12/12/22 00:55: PT 13.8, INR 1.1 Micro: Microbiology 12/11/22 18:09 Nasal Secretion SARS-CoV-2 & FLU Antigen (Rapid) - Final Radiography Diagnostic Testing: Radiology Impression Chest X-Ray 12/11/22 17:53 IMPRESSION: Question mild vascular congestion. Electronically Signed: Misha Horner DO at 18:06 EDT Reading Location ID and State: [address] [place] [address] Tel [phone], Service support , Gallbladder Ultrasound 12/11/22 19:18 IMPRESSION: 1. Limited study due to bowel gas and patient condition. The pancreatic tail and lower pole of the right kidney are poorly visualized. 2. Otherwise normal right upper quadrant abdominal ultrasound. Electronically Signed: Misha Horner DO at 20:19 EDT Reading Location ID and State: [facility] / [place] Tel [phone], Service support , Abdomen/Pelvis CT 12/11/22 20:34 IMPRESSION: 1. Prominent liver with geographic fatty infiltration. There is no focal mass. Scattered granulomata are noted. 2. Splenomegaly with calcified granuloma. 3. Otherwise normal CT of the abdomen and pelvis. 4. Volume loss in the atelectasis at the left lung base with calcified pleural plaque. Question asbestos exposure. Electronically Signed: Misha Horner DO at 21:20 EDT Reading Location ID and State: [address] [place] [address] Tel [phone], Service support , Physical Exam Const alert and no apparent distress General Appearance: cooperative HEENT normocephalic, head/scalp atraumatic and moist oral mucous membranes Eyes PERRL and EOMs intact bilaterally Neck no lymphadenopathy, supple and no JVD Lymph Lymphatic: no lymphadenopathy noted Resp Resp Narrative: mildly diminished breath sounds bibasally, no wheezes or crackles. On 3L of oxygen Cardio regular rate, regular rhythm, S1 normal heart sound, S2 normal heart sound and no murmurs GI normal to inspection, nondistended, normoactive bowel sounds, soft to palpation, non-tender and non-distended Extremity normal capillary refill, no clubbing, cyanosis or edema and no calf tenderness Skin General Skin Exam: no breakdown Neuro CN's II-XII intact bilaterally, no focal motor deficits, no sensory deficits noted and deep tendon reflexes 2+ bilaterally Motor Exam: strength 5/5 throughout Psych thought process normal and cooperative Mood & Affect: flat affect Assessment & Plan Assessment/Plan (1) Hypoxia: (2) URI (upper respiratory infection): PLAN: Plan #Hypoxia * On 2 L of oxygen. Etiology is unclear. * Chest x-ray that showed mild vascular congestion. We will get the 2D echo. * Titrate oxygen to maintain saturation above 90%. Patient has a BMI of 34.8 so sleep apnea may also be playing a role. * Will benefit from sleep study on outpatient basis. * Breathing treatments of bronchodilators. * #Fever: * Was documented as having a fever at home but has not had any fever whilst here. * CT of the abdomen and pelvis showed no evidence of infection and chest x-ray also showed no evidence of pneumonia. * Respiratory panel was negative. * Will monitor for now. * #Elevated liver enzymes: * AST is mildly elevated as well as ALT. * ALP is also elevated and GGT is also elevated. * They were previously mildly elevated. Unclear if patient drinks alcohol. Will monitor. * Gallbladder ultrasound showed limited study due to bowel gas and patient condition with pancreatic tail and lower pole of the right kidney poorly visualized and otherwise normal right upper quadrant ultrasound. * * #History of autism: stable DVT Prophylaxis; heparin Charges/Coding Visit Charges Inpatient E&M: 63172 Subs Hosp L2
--- NOTE | 2022-12-12 15:41 | ECHOCS_ITS ---
Reason For Study: DYSPNEA Procedure This was a 2D Doppler, Color Flow transthoracic echocardiogram. The study was technically difficult. Contrast injection was performed. Exam performed portable in patient room. Left Ventricle Normal LV size. The estimated ejection fraction is 60 %. Normal diastology for age. No regional wall motion abnormalities noted. Right Ventricle Normal RV size. Normal systolic function. Atria Normal left atrium. Normal right atrium. No doppler evidence for ASD. Mitral Valve There is no mitral valve stenosis. No mitral valve insufficiency. Tricuspid Valve There is no tricuspid stenosis. Unable to estimate RV systolic pressure due to inadequate jet, pulmonary artery pressure probably normal. Aortic Valve Trisinus/trileaflet aortic valve. There is no aortic stenosis. No aortic valve insufficiency. Pulmonic Valve There is no pulmonic valvular stenosis. No pulmonic valve insufficiency. Great Vessels Normal aortic root. Pericardium/Pleural Trivial pericardial effusion. Medication Diluted definity 2ml given slow IV push to enhance endocardial definition. MMode/2D Measurements & Calculations LVIDd: 4.4 cm IVSd: 1.0 cm Ao root diam: 3.0 cm LVIDs: 2.8 cm LVPWd: 1.2 cm RVDd: 3.3 cm FS: 38.0 % LAV(MOD-bp): 48.8 ml LVAd ap4: 40.6 cm2 SV(MOD-sp4): 84.6 ml LAV(MOD-bp) Indexed: 21.1 ml/m2 LVLd ap4: 9.4 cm LAV(MOD-sp2): 48.4 ml EDV(MOD-sp4): 147.4 ml LAV(MOD-sp4): 40.2 ml EDV(sp4-el): 149.8 ml LVAs ap4: 23.8 cm2 LVLs ap4: 7.7 cm ESV(MOD-sp4): 62.8 ml ESV(sp4-el): 62.4 ml EF(MOD-sp4): 57.4 % EF(sp4-el): 58.3 % SV(sp4-el): 87.3 ml LA A4 area: 17.2 cm2 LA dimension(2D): 3.5 cm RA A4 area: 16.5 cm2 Time Measurements MV dec time: 0.17 sec Doppler Measurements & Calculations MV E max lino: 99.2 cm/sec Lat Peak E' Lino: 11.3 cm/sec Med Peak E' Lino: 9.4 cm/sec MV A max lino: 57.6 cm/sec E/E' lat: 8.8 E/E' med: 10.6 MV E/A: 1.7 MV V2 max: 94.0 cm/sec MV dec slope: 580.0 cm/sec2 Ao V2 max: 143.3 cm/sec MV max P.6 mmHg Ao max P.2 mmHg MV V2 mean: 52.1 cm/sec Ao V2 mean: 102.3 cm/sec MV mean P.3 mmHg Ao mean P.8 mmHg MV V2 VTI: 24.3 cm Ao V2 VTI: 29.5 cm AV (velocity ratio): 0.78 LV V1 max: 122.3 cm/sec PA V2 max: 119.9 cm/sec LV V1 max P.0 mmHg PA V2 mean: 78.3 cm/sec LV V1 mean P.3 mmHg LV V1 mean: 86.0 cm/sec LV V1 VTI: 22.9 cm ECHO/Echo Complete W/ Contrast Interpretation Summary The estimated ejection fraction is 60 %. Trivial pericardial effusion. Ordering Physician: Maryjo Rivas Referring Physician: MD Doris Leroy Performed By: Nadya Leavitt RCS
[2022-12-12 17:34] LABS: BNP,B-Type NATRIURETIC PEPTIDE 126.2 pg/mL (0-100)
[2022-12-12] MEDS: Docusate Sodium 100 MG Capsule 200 MG PO (22:12)
[2022-12-12] MEDS: Divalproex (ER) 500 MG Tablet 1000 MG PO (22:13)
[2022-12-12] MEDS: RisperiDONE 1 MG Tablet 1.5 MG PO (22:14)
[2022-12-12] MEDS: Benztropine 2 MG Tablet 1 MG PO (22:14)
[2022-12-12] MEDS: Heparin Injection (Vial) 5,000 UNIT/ML VIAL 5000 UNIT SC (22:15)
[2022-12-12] MEDS: QUEtiapine 100 MG Tablet 150 MG PO (22:15)
[2022-12-12] MEDS: Montelukast 10 MG Tablet PO (22:16)
[2022-12-12] MEDS: Gabapentin 300 MG Capsule 600 MG PO (22:26)
[2022-12-13] VITALS (8 sets, daily range): BP systolic 120–137; BP diastolic 70–86; PULSE 74–88; RESP 16–18; TEMP 36.8–37.7; O2SAT 91–93
[2022-12-13] MEDS: Acetaminophen 325 MG Tablet 650 MG PO ×2 (04:48→23:05)
[2022-12-13] MEDS: Albuterol 2.5 MG/3 ML VIAL.NEB. INHALATION ×2 (05:15→19:12)
--- NOTE | 2022-12-13 05:30 | NURSING ---
cps did breathing treatment with pt, rn assisted to help with cooperation of pt. encouraged pt to cough & deep breathe.
--- NOTE | 2022-12-13 06:00 | RAD_ITS ---
INDICATION: r/o pneumonia EXAMINATION/TECHNIQUE: X-RAY - XR Chest 1 View COMPARISON: 12/11/2022 FINDINGS: LINES/DEVICES: None. LUNGS: Extensive bilateral perihilar/lower lung infiltrates. MEDIASTINUM AND CARDIOVASCULAR STRUCTURES: Cardiac silhouette not enlarged. Central airways and mediastinal contour are unremarkable. RAD/Chest 1 View (Portable) IMPRESSION: Bilateral multifocal pneumonia. Electronically Signed: Alec Tyson MD at 16:52 EDT ,
[2022-12-13 06:18] LABS: Absolute Lymphocyte Count 1.66 X10^3/uL (0.83-4.51); Absolute Neutrophil Count 12.9 X10^3/uL (2.0-7.7); Basophil# 0.04 X10^3/uL; Basophil% 0.2 % (0-1); Eosinophil# 0.02 X10^3/uL; Eosinophils% 0.1 % (0-5); Hematocrit 38.3 % (40-54); Hemoglobin 12.9 g/dL (13.0-16.5); Lymphocyte # 1.66 X10^3/ul (0.83-4.51); Lymphocyte % 10.1 % (19-41); Mean Corp Hgb Conc 33.7 g/dL (32-36); Mean Corpuscular Hgb 31.1 pg (27.0-32.0); Mean Corpuscular Volume 92.3 fL (80-94); Mean Platelet Vol. 9.3 fl (6.2-12.0); Monocyte# 1.54 X10^3/uL; Monocyte% 9.4 % (0-10); NRBC Flagged by Analyzer 0 % (0-5); Neutrophil # 12.85 X10^3/uL (2.7-7.7); Neutrophil % 78.2 % (47-70); POSITIVE DIFFERENTIAL YES; Platelet Count 172 K/mm3 (150-450); RBC Distribution Width CV 12.8 % (11.6-14.6); RBC Distribution Width SD 43.5 fl (35.1-43.9); Red Blood Count 4.15 M/mm3 (4.6-6.2); White Blood Count 16.4 K/mm3 (4.4-11.0)
[2022-12-13 06:20] LABS: Differential Indicated SCAN CRITERIA MET
[2022-12-13 06:46] LABS: Anion Gap 3 (5-15); BUN 9 mg/dL (7-18); BUN/Creat Ratio 14.7 RATIO (10-20); Calcium,Total 9.2 mg/dL (8.5-10.1); Chloride 99 mmol/L (98-107); Creatinine, Serum 0.61 mg/dL (0.70-1.30); EST Glomerular Filtration Rate 151 mL/min (>60); Est Glom Filt Rate - Afr Amer 183 mL/min (>60); Estimated Creatinine Clearance 164.59 ml/min; Glucose 138 mg/dL (74-106); Sodium Level 135 mmol/L (136-145)
--- NOTE | 2022-12-13 06:49 | PCM.HOSP.N ---
Hospitalist Note due to persistent fevers without a source, overnight, empiric abx vanc/unasyn were ordered.
[2022-12-13 07:10] LABS: Differential Comment SCANNED
[2022-12-13] MEDS: Divalproex (ER) 500 MG Tablet PO (08:30)
[2022-12-13] MEDS: Benztropine 2 MG Tablet 1 MG PO ×2 (08:30→21:44)
[2022-12-13] MEDS: buPROPion (XL) 150 MG TABLET.XL PO (08:30)
[2022-12-13] MEDS: Gabapentin 300 MG Capsule PO ×2 (08:30→16:46)
[2022-12-13] MEDS: Docusate Sodium 100 MG Capsule 200 MG PO ×2 (08:30→21:45)
[2022-12-13] MEDS: Loratadine 10 MG Tablet PO (08:31)
[2022-12-13] MEDS: RisperiDONE 1 MG Tablet 1.5 MG PO ×2 (08:31→21:46)
[2022-12-13] MEDS: Heparin Injection (Vial) 5,000 UNIT/ML VIAL 5000 UNIT SC ×2 (08:31→21:46)
[2022-12-13 09:31] LABS: Pathologist Review Reviewed
--- NOTE | 2022-12-13 09:57 | PCM.RX.CS ---
Consult Type of Consult: New start Suspected Infection: Other - Empiric Labs: Sodium 135 mmol/L (136-145) L 12/13/22 05:55 Potassium 4.0 mmol/L (3.5-5.1) 12/13/22 05:55 Chloride 99 mmol/L (98-107) 12/13/22 05:55 Carbon Dioxide 33.0 mmol/L (21.0-32.0) H 12/13/22 05:55 Anion Gap 3 (5-15) L 12/13/22 05:55 BUN 9 mg/dL (7-18) 12/13/22 05:55 Creatinine 0.61 mg/dL (0.70-1.30) L 12/13/22 05:55 Est GFR (MDRD) Af Amer 183 mL/min (>60) 12/13/22 05:55 Est GFR (MDRD) Non-Af 151 mL/min (>60) 12/13/22 05:55 BUN/Creatinine Ratio 14.7 RATIO (10-20) 12/13/22 05:55 Glucose 138 mg/dL (74-106) H 12/13/22 05:55 Microbiology: Microbiology 12/11/22 19:00 Urine, Clean Catch Urine Culture - Final Culture exhibits no growth. 12/11/22 18:09 Nasal Secretion SARS-CoV-2 & FLU Antigen (Rapid) - Final Goal Trough: 15-20 mcg/mL Pharmacy Plan for Drug Dosing: NEW START IV VANCOMYCIN Consulting Physician: Dr. Vidales Indication: Empiric/persistent fevers Goal Trough: 15-20 SrCr: sCr 0.61 CrCl: > 100 ml/min Comments: Loading dose Vancomycin 2000mg x1 given Vancomycin Dose: 1000mg Q8H Pending Level: Vancomycin trough @ 0830 12/14/22 Pharmacy Service will continue to monitor and adjust dosing as required. Labs to be done on [date and time ordered]: Vancomycin trough @ 0830 12/14/22
--- NOTE | 2022-12-13 11:58 | PN_ITS ---
Subjective Subjective Patient seen and examined. He had no complaints and had an uneventful night. Review of systems otherwise negative. He was noted to be febrile overnight, and so ws sared on empiric antibiotics with IV vancomycin and unasyn. He is now on 3L of oxygen. He has otherwise remained hemodynamically stable. Objective Data Objective Data Vital Signs: Vital Signs Temp Pulse Resp BP Pulse Ox O2 Del Method O2 Flow Rate 98.6 F 88 18 132/70 H 91 Nasal Cannula 3 12/13/22 08:35 12/13/22 08:35 12/13/22 08:35 12/13/22 08:35 12/13/22 08:35 12/13/22 08:37 12/13/22 08:37 Oxygen Flow Rate (L/min) 3 Oxygen Delivery Method Nasal Cannula Weight: 249 lb 5.485 oz Body Mass Index (BMI) 34.7 Intake & Output: Intake and Output for Last 24 Hours 12/11/22 12/12/22 12/13/22 23:59 23:59 23:59 Intake Total 2919.5 / 2919.5 1052 / 1052 Output Total 550 / 550 Balance 2369.5 / 2369.5 1052 / 1052 Lab / Micro Data Result Diagrams: 12/13/22 05:55 12/13/22 05:55 Labs: Laboratory Results - last 24 hr 12/11/22 17:50: Diff Path Review Reviewed 12/12/22 15:58: B-Natriuretic Peptide 126.2 H 12/13/22 00:55: Procalcitonin 0.30 H 12/13/22 05:55: WBC 16.4 H, RBC 4.15 L, Hgb 12.9 L, Hct 38.3 L, MCV 92.3, MCH 31.1, MCHC 33.7, RDW Std Deviation 43.5, RDW Coeff of Dony 12.8, Plt Count 172, MPV 9.3, Immature Gran % (Auto) 2.000 H, Neut % (Auto) 78.2 H, Lymph % (Auto) 10.1 L, [place] % (Auto) 9.4, Eos % (Auto) 0.1, Baso % (Auto) 0.2, Absolute Neuts (auto) 12.9 H, Absolute Lymphs (auto) 1.66, Nucleated RBC % 0, Differential Comment SCANNED, Diff Path Review Reviewed 12/13/22 05:55: Sodium 135 L, Potassium 4.0, Chloride 99, Carbon Dioxide 33.0 H, Anion Gap 3 L, BUN 9, Creatinine 0.61 L, Estim Creat Clear Calc 164.59, Est GFR (MDRD) Af Amer 183, Est GFR (MDRD) Non-Af 151, BUN/Creatinine Ratio 14.7, Glucose 138 H, Calcium 9.2 Micro: Microbiology 12/11/22 19:00 Urine, Clean Catch Urine Culture - Final Culture exhibits no growth. 12/11/22 18:09 Nasal Secretion SARS-CoV-2 & FLU Antigen (Rapid) - Final Physical Exam Const alert, no apparent distress and healthy appearing General Appearance: cooperative HEENT normocephalic, head/scalp atraumatic and moist oral mucous membranes Eyes PERRL and EOMs intact bilaterally Neck no lymphadenopathy, supple and no JVD Lymph Lymphatic: no lymphadenopathy noted Resp normal respiratory effort Resp Narrative: mildly diminished breath sounds bibasally, no wheezes or crackles. On 3L of oxygen Cardio regular rate, regular rhythm, S1 normal heart sound, S2 normal heart sound and no murmurs GI normal to inspection, nondistended, normoactive bowel sounds, soft to palpation, non-tender and non-distended Extremity normal capillary refill, no clubbing, cyanosis or edema and no calf tenderness Skin General Skin Exam: no breakdown Neuro CN's II-XII intact bilaterally, no focal motor deficits, no sensory deficits noted and deep tendon reflexes 2+ bilaterally Motor Exam: strength 5/5 throughout Psych thought process normal and cooperative Mood & Affect: flat affect Assessment & Plan Assessment/Plan (1) Hypoxia: (2) URI (upper respiratory infection): PLAN: Plan #Hypoxia * On 2 L of oxygen. Etiology is unclear. * Chest x-ray that showed mild vascular congestion. 2D echo pending * Titrate oxygen to maintain saturation above 90%. Patient has a BMI of 34.8 so sleep apnea may also be playing a role. * Will benefit from sleep study on outpatient basis. * Breathing treatments of bronchodilators. * #Fever: * Was documented as having a fever at home * was started empirically on IV vancomycin and IV unasyn * CT of the abdomen and pelvis showed no evidence of infection and chest x-ray also showed no evidence of pneumonia. * COVID test was negative, as well as flu test * will do a respiratory panel * blood and urine cultures pending. Procalcitonin is 0.3 * wbc is elevated at 16.4, and is predominantly neutrophilic * #Elevated liver enzymes: * AST is mildly elevated as well as ALT. * ALP is also elevated and GGT is also elevated. * They were previously mildly elevated. Unclear if patient drinks alcohol. Will monitor. * Gallbladder ultrasound showed limited study due to bowel gas and patient condition with pancreatic tail and lower pole of the right kidney poorly visualized and otherwise normal right upper quadrant ultrasound. * will trend liver enzymes * #History of autism: stable DVT Prophylaxis; heparin Charges/Coding Visit Charges Inpatient E&M: 35684 Subs Hosp L2
--- NOTE | 2022-12-13 12:30 | CASEMGMT ---
BEA PÉREZ Discharge Planning Assessment: Noted documentation that pt with Autism. Per interaction 12/12, pt states he lives with his sister. BEA PÉREZ phoned pt's sister, introduced self and role at [facility], pt's sister voiced understanding and agreed to participating in assessment. Care providers, pharmacy, and demographics verified. Admitting dx: hypoxia PCP: Doris Specialists: none Preferred Pharmacy: [facility] Insurance: [facility] Prescription Benefit: yes Living Will/HPOA: None; Pt's sister Yenny is pt's legal guardian LNOK: sister Yenny Living Arrangements: Pt lives with his sister Yenny in a two story home. Pt can navigate the steps but does need to take his time. Pt is independent with ADLs but does need encouragement or prompting to perform. Pt is dependent on sister for household tasks including cooking and med management. Transportation: pt's sister provides transportation DME: does have a pulse oximeter HHC/SNF: denies any previous providers but pt's sister states pt was in a skilled nursing until January, when he went to reside with her. Plan: Per pt's sister, the plan is for pt to return home with family support. Discussed possible need for home O2. Pt's sister denies preference in DME supplier and is agreeable to [facility]. Maurice Edge RN CM
--- NOTE | 2022-12-13 12:48 | CASEMGMT ---
BEA PÉRZE NOTE: Green sheet placed on pt's chart for O2, should he qualify for home O2 @ d/c. Esthela MORAN BEA CM
[2022-12-13 15:08] LABS: Anti-Mitochondrial AB <20.0 Units (0.0-20.0); Anti-Smooth Muscle ABS 4 Units (0-19); Hepatitis A AB, Total Negative (Negative); Hepatitis A IgM Antibody Negative (Negative)
[2022-12-13] MEDS: Vancomycin IV 1,000 MG/200 ML BAG 200 MG IV (16:46)
[2022-12-13] MEDS: Gabapentin 300 MG Capsule 600 MG PO (21:46)
[2022-12-13] MEDS: Divalproex (ER) 500 MG Tablet 1000 MG PO (21:46)
[2022-12-13] MEDS: QUEtiapine 100 MG Tablet 150 MG PO (21:48)
[2022-12-13] MEDS: Montelukast 10 MG Tablet PO (21:48)
[2022-12-14] VITALS (8 sets, daily range): BP systolic 129–145; BP diastolic 76–87; PULSE 75–86; RESP 18; TEMP 36.8–37.2; O2SAT 86–96
[2022-12-14] MEDS: Vancomycin IV 1,000 MG/200 ML BAG 200 MG IV ×2 (01:01→09:26)
[2022-12-14] MEDS: Gabapentin 300 MG Capsule PO ×2 (08:11→16:50)
[2022-12-14] MEDS: Divalproex (ER) 500 MG Tablet PO (08:12)
[2022-12-14 08:39] LABS: Hematocrit 37.2 % (40-54); Hemoglobin 12.5 g/dL (13.0-16.5); Mean Corp Hgb Conc 33.6 g/dL (32-36); Mean Corpuscular Hgb 31.5 pg (27.0-32.0); Mean Corpuscular Volume 93.7 fL (80-94); Mean Platelet Vol. 9.6 fl (6.2-12.0); POSITIVE COUNT YES; POSITIVE MORPHOLOGY YES; Platelet Count 191 K/mm3 (150-450); RBC Distribution Width CV 12.8 % (11.6-14.6); Red Blood Count 3.97 M/mm3 (4.6-6.2); White Blood Count 14.6 K/mm3 (4.4-11.0)
[2022-12-14 08:51] LABS: Differential Indicated MANUAL DIFF
[2022-12-14 09:20] LABS: Eosinophil 3 % (0-5); Lymphocyte 23 % (19-41); Monocyte 6 % (0-10); Myelocyte 1 % (0-0); Neutrophil-Band 2 % (0-5); Neutrophil-Segmented 65 % (47-70); Platelet Estimate ADEQUATE (ADEQ); Red Cell Morphology NORM C+C NORMAL (NORM C&C); Total Cells Counted 100 (MANUAL DIFF)
[2022-12-14 09:21] LABS: Absolute Lymphocyte Count 3.35 X10^3/uL (0.83-4.51); Absolute Neutrophil Count 9.8 X10^3/uL (2.0-7.7); Lymphocyte # 3.35 X10^3/ul (0.83-4.51); Neutrophil # 9.78 X10^3/uL (2.7-7.7)
[2022-12-14] MEDS: Benztropine 2 MG Tablet 1 MG PO ×2 (09:26→21:52)
[2022-12-14] MEDS: Docusate Sodium 100 MG Capsule 200 MG PO ×2 (09:26→20:03)
[2022-12-14] MEDS: buPROPion (XL) 150 MG TABLET.XL PO (09:27)
[2022-12-14] MEDS: Loratadine 10 MG Tablet PO (09:27)
[2022-12-14] MEDS: Heparin Injection (Vial) 5,000 UNIT/ML VIAL 5000 UNIT SC ×2 (09:27→21:52)
[2022-12-14] MEDS: RisperiDONE 1 MG Tablet 1.5 MG PO ×2 (09:29→21:54)
[2022-12-14 09:38] LABS: Anion Gap 4 (5-15); BUN 10 mg/dL (7-18); BUN/Creat Ratio 15.2 RATIO (10-20); Calcium,Total 9.3 mg/dL (8.5-10.1); Chloride 99 mmol/L (98-107); Creatinine, Serum 0.66 mg/dL (0.70-1.30); EST Glomerular Filtration Rate 139 mL/min (>60); Est Glom Filt Rate - Afr Amer 168 mL/min (>60); Estimated Creatinine Clearance 152.12 ml/min; Glucose 127 mg/dL (74-106); Potassium 3.9 mmol/L (3.5-5.1); Sodium Level 136 mmol/L (136-145)
[2022-12-14 09:50] LABS: Vancomycin, Trough Level 9.7 ug/mL (5.0-15.0)
--- NOTE | 2022-12-14 13:03 | PCM.RX.CS ---
Consult Pharmacy has been consulted to manage selected antiobiotic: Vancomycin Type of Consult: Follow-up Prior Doses of Antibiotics Received/Current Regimen: 2000mg iv loading dose x 1 and 1000mg iv q8h. Labs: Sodium 136 mmol/L (136-145) 12/14/22 08:20 Potassium 3.9 mmol/L (3.5-5.1) 12/14/22 08:20 Chloride 99 mmol/L (98-107) 12/14/22 08:20 Carbon Dioxide 33.0 mmol/L (21.0-32.0) H 12/14/22 08:20 Anion Gap 4 (5-15) L 12/14/22 08:20 BUN 10 mg/dL (7-18) 12/14/22 08:20 Creatinine 0.66 mg/dL (0.70-1.30) L 12/14/22 08:20 Est GFR (MDRD) Af Amer 168 mL/min (>60) 12/14/22 08:20 Est GFR (MDRD) Non-Af 139 mL/min (>60) 12/14/22 08:20 BUN/Creatinine Ratio 15.2 RATIO (10-20) 12/14/22 08:20 Glucose 127 mg/dL (74-106) H 12/14/22 08:20 Vancomycin Trough 9.7 ug/mL (5.0-15.0) 12/14/22 08:20 Microbiology: Microbiology 12/11/22 19:00 Blood Culture (Wb) - Anticubital Left Blood Culture - Preliminary No growth in 48 hours. 12/11/22 17:50 Blood Culture (Wb) - Anticubital Left Blood Culture - Preliminary No growth in 48 hours. 12/13/22 13:50 Mucosa - Nasopharyngeal Respiratory Panel (PCR) - Final 12/11/22 19:00 Urine, Clean Catch Urine Culture - Final Culture exhibits no growth. 12/11/22 18:09 Nasal Secretion SARS-CoV-2 & FLU Antigen (Rapid) - Final Weight used for dosin kg Estimated Creatinine Clearance: >100 ml/mi Goal Trough: 15-20 mcg/mL Pharmacy Plan for Drug Dosing: Trough today 9.7 and below goal of 15-20mcg/ml. Will increase dose to 1500mg iv q8h with another trough before 4th dose of new dosing. Pharmacy Service will continue to monitor and adjust dosing as required. Follow-Up Labs: Trough Vancomycin - 6.18.23 @1730 before 1800 dose
--- NOTE | 2022-12-14 17:39 | PN_ITS ---
Subjective Subjective Patient seen and examined. He had no complaints. He was resting comfortably in bed. Review of systems otherwise negative. He remains on 3L of oxygen. Objective Data Objective Data Vital Signs: Vital Signs Temp Pulse Resp BP Pulse Ox O2 Del Method O2 Flow Rate 98.9 F 75 18 129/84 H 96 Nasal Cannula 2 12/14/22 16:58 12/14/22 16:58 12/14/22 16:58 12/14/22 16:58 12/14/22 16:58 12/14/22 16:58 12/14/22 16:58 Oxygen Flow Rate (L/min) [ 2 AMBULATING with Oxygen #1] Oxygen Flow Rate (L/min) 2 Oxygen Delivery Method Nasal Cannula Weight: 249 lb 5.485 oz Body Mass Index (BMI) 34.7 Intake & Output: Intake and Output for Last 24 Hours 12/12/22 12/13/22 12/14/22 23:59 23:59 23:59 Intake Total 2919.5 / 2919.5 1372.75 / 2022.75 1586 / 1586 Output Total 550 / 550 700 / 700 Balance 2369.5 / 2369.5 1372.75 / 2022.75 886 / 886 Lab / Micro Data Result Diagrams: 12/14/22 08:20 12/14/22 08:20 Labs: Laboratory Results - last 24 hr 12/14/22 08:20: WBC 14.6 H, RBC 3.97 L, Hgb 12.5 L, Hct 37.2 L, MCV 93.7, MCH 31.5, MCHC 33.6, RDW Std Deviation 45.0 H, RDW Coeff of Dony 12.8, Plt Count 191, MPV 9.6, Neut % (Auto) Not Reportable, Absolute Neuts (auto) 9.8 H, Absolute Lymphs (auto) 3.35, Total Counted 100, Neutrophils % (Manual) 65, Band Neutrophils % 2, Lymphocytes % (Manual) 23, Monocytes % (Manual) 6, Eosinophils % (Manual) 3, Myelocytes % 1 H, Diff Path Review October, Platelet Estimate ADEQUATE, RBC Morphology NORM C+C 12/14/22 08:20: Sodium 136, Potassium 3.9, Chloride 99, Carbon Dioxide 33.0 H, Anion Gap 4 L, BUN 10, Creatinine 0.66 L, Estim Creat Clear Calc 152.12, Est GFR (MDRD) Af Amer 168, Est GFR (MDRD) Non-Af 139, BUN/Creatinine Ratio 15.2, Glucose 127 H, Calcium 9.3 12/14/22 08:20: Vancomycin Trough 9.7 Micro: Microbiology 12/11/22 19:00 Blood Culture (Wb) - Anticubital Left Blood Culture - Preliminary No growth in 48 hours. 12/11/22 17:50 Blood Culture (Wb) - Anticubital Left Blood Culture - Preliminary No growth in 48 hours. 12/13/22 13:50 Mucosa - Nasopharyngeal Respiratory Panel (PCR) - Final 12/11/22 19:00 Urine, Clean Catch Urine Culture - Final Culture exhibits no growth. 12/11/22 18:09 Nasal Secretion SARS-CoV-2 & FLU Antigen (Rapid) - Final Physical Exam Const alert, no apparent distress and healthy appearing General Appearance: cooperative HEENT normocephalic, head/scalp atraumatic and moist oral mucous membranes Eyes PERRL and EOMs intact bilaterally Neck no lymphadenopathy, supple and no JVD Lymph Lymphatic: no lymphadenopathy noted Resp normal respiratory effort Resp Narrative: mildly diminished breath sounds bibasally, no wheezes or crackles. On 3L of oxygen Cardio regular rate, regular rhythm, S1 normal heart sound, S2 normal heart sound and no murmurs GI normal to inspection, nondistended, normoactive bowel sounds, soft to palpation, non-tender and non-distended Extremity normal capillary refill, no clubbing, cyanosis or edema and no calf tenderness Skin General Skin Exam: no breakdown Neuro CN's II-XII intact bilaterally, no focal motor deficits, no sensory deficits noted and deep tendon reflexes 2+ bilaterally Motor Exam: strength 5/5 throughout Psych thought process normal and cooperative Mood & Affect: flat affect Assessment & Plan Assessment/Plan (1) Hypoxia: (2) URI (upper respiratory infection): PLAN: Plan #Hypoxia * Still On 2 L of oxygen. Etiology is unclear. * Chest x-ray that showed mild vascular congestion. 2D echo showed EF of 60% with normal diastole for age and no regional wall motion abnormalities. * Titrate oxygen to maintain saturation above 90%. Patient has a BMI of 34.8 so sleep apnea may also be playing a role. * Will benefit from sleep study on outpatient basis. * Breathing treatments with bronchodilators. * consult pulmonology in light of persistent hypoxia * will diurese with IV lasix * #Fever: * Was documented as having a fever at home * was started empirically on IV vancomycin and IV unasyn * CT of the abdomen and pelvis showed no evidence of infection and chest x-ray also showed no evidence of pneumonia. * COVID test was negative, as well as flu test * respiratory panel was negative * blood and urine cultures pending. Procalcitonin is 0.3 * wbc is down slightly to 14.6 today * #Elevated liver enzymes: * AST is mildly elevated as well as ALT. * ALP is also elevated and GGT is also elevated. * They were previously mildly elevated. Unclear if patient drinks alcohol. Will monitor. * Gallbladder ultrasound showed limited study due to bowel gas and patient condition with pancreatic tail and lower pole of the right kidney poorly vis ualized and otherwise normal right upper quadrant ultrasound. * will trend liver enzymes * #History of autism: stable DVT Prophylaxis; heparin Charges/Coding Visit Charges Inpatient E&M: 55403 Subs Hosp L2
[2022-12-14] MEDS: Divalproex (ER) 500 MG Tablet 1000 MG PO (21:52)
[2022-12-14] MEDS: Furosemide 40 MG/4 ML Vial IV (21:52)
[2022-12-14] MEDS: Montelukast 10 MG Tablet PO (21:52)
[2022-12-14] MEDS: QUEtiapine 100 MG Tablet 150 MG PO (21:53)
[2022-12-14] MEDS: Gabapentin 300 MG Capsule 600 MG PO (22:00)
[2022-12-14] MEDS: 0.9% Saline Lock 10 ML Syringe IV (22:00)
[2022-12-14] MEDS: Acetaminophen 325 MG Tablet 650 MG PO (23:24)
[2022-12-15] VITALS (10 sets, daily range): BP systolic 133–140; BP diastolic 74–88; PULSE 73–89; RESP 16–18; TEMP 36.6–37.3; O2SAT 86–96
[2022-12-15] MEDS: Furosemide 40 MG/4 ML Vial IV ×3 (05:41→22:34)
[2022-12-15 05:48] LABS: Hematocrit 40.2 % (40-54); Hemoglobin 13.1 g/dL (13.0-16.5); Mean Corp Hgb Conc 32.6 g/dL (32-36); Mean Corpuscular Hgb 30.7 pg (27.0-32.0); Mean Corpuscular Volume 94.1 fL (80-94); Mean Platelet Vol. 9.6 fl (6.2-12.0); POSITIVE COUNT YES; POSITIVE MORPHOLOGY YES; Platelet Count 239 K/mm3 (150-450); RBC Distribution Width SD 44.6 fl (35.1-43.9); Red Blood Count 4.27 M/mm3 (4.6-6.2); White Blood Count 12.5 K/mm3 (4.4-11.0)
[2022-12-15 05:55] LABS: Differential Indicated MANUAL DIFF
--- NOTE | 2022-12-15 05:55 | RAD_ITS ---
STUDY: X-RAY CHEST REASON FOR EXAM: Male, 42 years old. CHF TECHNIQUE: Single AP portable view of the chest. COMPARISON: 12/13/2022 FINDINGS: No change in the alveolar opacity in both lung bases consistent with bibasilar atelectasis or pneumonia. Slightly elevated right hemidiaphragm which is unchanged. Normal size heart. Normal mediastinum and jah. Normal visualized pulmonary arteries. Normal visualized aortic arch and descending thoracic aorta. Normal visualized thoracic spine. Normal visualized ribs, clavicles, and shoulders. There is no demonstrated abnormality of the visualized soft tissue structures of the upper abdomen. RAD/Chest 1 View (Portable) IMPRESSION: No change from 12/13/2022. Electronically Signed: Jayden Jones MD at 8:24 EDT ,
[2022-12-15 06:12] LABS: Anion Gap 4 (5-15); BUN 11 mg/dL (7-18); BUN/Creat Ratio 16.7 RATIO (10-20); Calcium,Total 8.9 mg/dL (8.5-10.1); Chloride 100 mmol/L (98-107); Creatinine, Serum 0.66 mg/dL (0.70-1.30); EST Glomerular Filtration Rate 140 mL/min (>60); Est Glom Filt Rate - Afr Amer 169 mL/min (>60); Estimated Creatinine Clearance 152.12 ml/min; Glucose 110 mg/dL (74-106); Potassium 3.9 mmol/L (3.5-5.1); Sodium Level 139 mmol/L (136-145)
[2022-12-15 06:35] LABS: Basophil 1 % (0-1); Eosinophil 3 % (0-5); Lymphocyte 23 % (19-41); Metamyelocyte 3 % (0-1); Monocyte 7 % (0-10); Myelocyte 2 % (0-0); Neutrophil-Band 1 % (0-5); Neutrophil-Segmented 60 % (47-70); Total Cells Counted 100 (MANUAL DIFF)
[2022-12-15 06:36] LABS: Platelet Estimate ADEQUATE (ADEQ); Red Cell Morphology NORM C+C NORMAL (NORM C&C)
[2022-12-15 07:02] LABS: Neutrophil # 8.25 X10^3/uL (2.7-7.7)
[2022-12-15 07:03] LABS: Absolute Lymphocyte Count 2.88 X10^3/uL (0.83-4.51); Absolute Neutrophil Count 8.3 X10^3/uL (2.0-7.7); Lymphocyte # 2.88 X10^3/ul (0.83-4.51)
[2022-12-15] MEDS: Divalproex (ER) 500 MG Tablet PO (08:19)
[2022-12-15] MEDS: Gabapentin 300 MG Capsule PO ×2 (08:20→17:20)
[2022-12-15] MEDS: Benztropine 2 MG Tablet 1 MG PO ×2 (09:47→22:34)
[2022-12-15] MEDS: Loratadine 10 MG Tablet PO (09:47)
[2022-12-15] MEDS: Docusate Sodium 100 MG Capsule 200 MG PO ×2 (09:48→20:18)
[2022-12-15] MEDS: RisperiDONE 1 MG Tablet 1.5 MG PO ×2 (09:48→22:35)
[2022-12-15] MEDS: Heparin Injection (Vial) 5,000 UNIT/ML VIAL 5000 UNIT SC ×2 (09:48→22:32)
[2022-12-15] MEDS: buPROPion (XL) 150 MG TABLET.XL PO (09:49)
[2022-12-15] MEDS: 0.9% Saline Lock 10 ML Syringe IV ×2 (09:58→22:32)
--- NOTE | 2022-12-15 11:59 | PN_ITS ---
Subjective Subjective Patient seen and examined. He has no active complaints and feels well. He was on room air but subsequently put on 1 L of oxygen. Review of systems otherwise negative. Objective Data Objective Data Vital Signs: Vital Signs Temp Pulse Resp BP Pulse Ox O2 Del Method O2 Flow Rate 98 F 88 18 140/88 H 95 Nasal Cannula 2 12/15/22 11:40 12/15/22 11:40 12/15/22 11:40 12/15/22 11:40 12/15/22 11:40 12/15/22 11:40 12/15/22 11:40 Oxygen Flow Rate (L/min) [At 2 REST with Oxygen] Oxygen Flow Rate (L/min) [ 2 AMBULATING with Oxygen #1] Oxygen Flow Rate (L/min) 2 Oxygen Delivery Method Nasal Cannula Weight: 249 lb 5.485 oz Body Mass Index (BMI) 34.7 Intake & Output: Intake and Output for Last 24 Hours 12/13/22 12/14/22 12/15/22 23:59 23:59 23:59 Intake Total 1372.75 / 2022.75 2916 / 3416 1854 / 1854 Output Total 700 / 700 350 / 350 Balance 1372.75 / 2022.75 2216 / 2716 1504 / 1504 Lab / Micro Data Result Diagrams: 12/15/22 05:18 12/15/22 05:18 Labs: Laboratory Results - last 24 hr 12/15/22 05:18: WBC 12.5 H, RBC 4.27 L, Hgb 13.1, Hct 40.2, MCV 94.1 H, MCH 30.7, MCHC 32.6, RDW Std Deviation 44.6 H, RDW Coeff of Dony 13.0, Plt Count 239, MPV 9.6, Neut % (Auto) Not Reportable, Absolute Neuts (auto) 8.3 H, Absolute Lymphs (auto) 2.88, Total Counted 100, Neutrophils % (Manual) 60, Band Neutrophils % 1, Lymphocytes % (Manual) 23, Monocytes % (Manual) 7, Eosinophils % (Manual) 3, Basophils % (Manual) 1, Metamyelocytes % 3 H, Myelocytes % 2 H, Diff Path Review May , Platelet Estimate ADEQUATE, RBC Morphology NORM C+C 12/15/22 05:18: Sodium 139, Potassium 3.9, Chloride 100, Carbon Dioxide 35.0 H, Anion Gap 4 L, BUN 11, Creatinine 0.66 L, Estim Creat Clear Calc 152.12, Est GFR (MDRD) Af Amer 169, Est GFR (MDRD) Non-Af 140, BUN/Creatinine Ratio 16.7, Glucose 110 H, Calcium 8.9 Micro: Microbiology 12/11/22 19:00 Blood Culture (Wb) - Anticubital Left Blood Culture - Pre liminary No growth in 48 hours. 12/11/22 17:50 Blood Culture (Wb) - Anticubital Left Blood Culture - Preliminary No growth in 48 hours. 12/13/22 13:50 Mucosa - Nasopharyngeal Respiratory Panel (PCR) - Final 12/11/22 19:00 Urine, Clean Catch Urine Culture - Final Culture exhibits no growth. 12/11/22 18:09 Nasal Secretion SARS-CoV-2 & FLU Antigen (Rapid) - Final Radiography Diagnostic Testing: Radiology Impression Chest X-Ray 12/15/22 05:55 IMPRESSION: No change from 12/13/2022. Electronically Signed: Jayden Jones MD at 8:24 EDT , Physical Exam Const alert, no apparent distress and healthy appearing General Appearance: cooperative HEENT normocephalic, head/scalp atraumatic and moist oral mucous membranes Eyes PERRL and EOMs intact bilaterally Neck no lymphadenopathy, supple and no JVD Lymph Lymphatic: no lymphadenopathy noted Resp normal respiratory effort Resp Narrative: mildly diminished breath sounds bibasally, no wheezes or crackles. On 3L of oxygen Cardio regular rate, regular rhythm, S1 normal heart sound, S2 normal heart sound and no murmurs GI normal to inspection, nondistended, normoactive bowel sounds, soft to palpation, non-tender and non-distended Extremity normal capillary refill, no clubbing, cyanosis or edema and no calf tenderness Skin General Skin Exam: no breakdown Neuro CN's II-XII intact bilaterally, no focal motor deficits, no sensory deficits noted and deep tendon reflexes 2+ bilaterally Motor Exam: strength 5/5 throughout Psych cooperative Assessment & Plan Assessment/Plan (1) Hypoxia: (2) URI (upper respiratory infection): PLAN: Plan #Hypoxia * on 1-2 L of oxygen. * Chest x-ray that showed mild vascular congestion. 2D echo showed EF of 60% with normal diastole for age and no regional wall motion abnormalities. * Titrate oxygen to maintain saturation above 90%. Patient has a BMI of 34.8 so sleep apnea may also be playing a role. * Will benefit from sleep study on outpatient basis. * Breathing treatments with bronchodilators. * consult pulmonology in light of persistent hypoxia * being diuresed with IV lasix. * He had a walking pulse ox and dropped to the mid 80s today. He is in positive fluid balance by 7.86 L. I think he will benefit from another day of IV diuresis. * #Fever: * Was documented as having a fever at home * was started empirically on IV vancomycin and IV unasyn * CT of the abdomen and pelvis showed no evidence of infection and chest x-ray also showed no evidence of pneumonia. * COVID test was negative, as well as flu test * respiratory panel was negative * wbc down to 12.5 today. Blood cultures are negative as well as urine cultures and respiratory panel. Will DC antibiotics. * Procalcitonin is 0.3 #Elevated liver enzymes: * AST is mildly elevated as well as ALT. * ALP is also elevated and GGT is also elevated. * They were previously mildly elevated. Unclear if patient drinks alcohol. Will monitor. * Gallbladder ultrasound showed limited study due to bowel gas and patient condition with pancreatic tail and lower pole of the right kidney poorly visualized and otherwise normal right upper quadrant ultrasound. * will trend liver enzymes * #History of autism: stable DVT Prophylaxis; heparin Disposition: Anticipate discharge by tomorrow if he does well with walking pulse ox. Charges/Coding Visit Charges Inpatient E&M: 00984 Subs Hosp L2
[2022-12-15 12:42] LABS: AST(SGOT) 24 U/L (15-37); Alanine Aminotransfer ALT/SGPT 127 U/L (16-61); Albumin, Serum 2.4 g/dL (3.2-5.0); Alkaline Phosphatase 243 U/L (45-117); Bilirubin, Direct 0.25 mg/dL (0.00-0.30); Globulin 4.2 g/dL (2.2-4.2); Protein, Total 6.6 g/dL (6.4-8.2)
--- NOTE | 2022-12-15 16:59 | EX.PCM.CONCC ---
Assessment & Plan Assessment/Plan (1) Hypoxia: PLAN: Risk factors for hypoxia include: - bibasilar atelectasis on CT scan - Congestive heart failure; BNP was mildly elevated, - Possible sleep apnea and/or obesity hypoventilation. Other systemic signs of obesity related disease include fatty liver. Recommendations: - Home sleep study to screen for sleep apnea. If the patient is unable to wear the device overnight because of his agitation and autism, home oximetry with a recording pulse ox would provide enough information to determine the extent of hypoxia - echocardiogram to rule out endocarditis and evaluate the right heart and left ventricular function for possible CHF etiology - He has been able to wear supplemental oxygen, and should tolerated at home. If he has sleep apnea it remains to be seen whether he would tolerate nasal CPAP. - Incentive spirometry, mobilize, deep breathe, cough periodically, it seems he spends a long time in a chair playing video games, which is a risk for both atelectasis and pulmonary embolism. (2) URI (upper respiratory infection): PLAN: Work-up is negative including cultures, comprehensive viral PCR, SARS, and influenza. He does have a sore on the back of his neck (possible source), his white count is decreasing and clinically he is improving. - Skin lesion on the neck, with possible self trauma and hematologic seeding causing endocarditis or other deep-seated infection is in the differential diagnosis. Next time if he comes down with a febrile illness would require recommend multiple sets of blood cultures over 24 hours to rule out endocarditis, and obtain a echocardiogram PLAN: Plan We will defer to the primary team to arrange the above. Thank you for consulting [facility] on your pleasant patient. We will sign off for now, please consult again if additional input is necessary. Ap De La Rosa MD [facility] HPI Consult Data Date of Consult: 12/15/22 HPI Narrative Reason for Consultation: Hypoxia HPI Narrative: ELIAS LOPEZ, is a 42 M who presents with temperature of 103 degrees and dyspnea at home. He was found to be hypoxic on admission, and placed on 3 L nasal cannula. The patient has autism and OCD, was actively using his handheld videogame during this visit, and cannot give a history. He told me that he feels fine. Denies any cough, chest pain, chills, shortness of breath but is essentially minimally verbal. The history is from the chart, which was reviewed. The history stated he uses smokeless tobacco but is apparently not an active smoker. [facility] Medical History Autism COPD (chronic obstructive pulmonary disease) High cholesterol OCD (obsessive compulsive disorder) Home Medications ascorbic acid (vitamin C) 500 mg tablet (Vitamin C) 1,000 mg PO DAILY@0800 04/05/13 [History Last Taken 03/05/16] benztropine 2 mg tablet 1 mg PO BID 04/05/13 [History Last Taken 03/05/16] divalproex 500 mg tablet,extended release 24 hr 1,000 mg PO QHS 04/05/13 [History Last Taken 03/04/16] divalproex 500 mg tablet,extended release 24 hr 500 mg PO DAILY@0800 04/05/13 [History Last Taken 03/05/16] docusate sodium 100 mg capsule (DOK) 200 mg PO BID 04/05/13 [History Last Taken 03/05/16] gabapentin 300 mg capsule 300 mg PO BID 04/05/13 [History Last Taken 03/05/16] loratadine 10 mg tablet (Allergy Relief (loratadine)) 10 mg PO DAILY 04/05/13 [History Last Taken 03/05/16] montelukast 10 mg tablet 10 mg PO QHS 04/05/13 [History Last Taken 03/04/16] vitamin E (dl, acetate) 180 mg (400 unit) capsule 400 units PO BID 04/05/13 [History Last Taken 03/05/16] bupropion HCl 150 mg 24 hr tablet, extended release 150 mg PO DAILY 03/31/14 [History Last Taken 03/05/16] Risperdal 1.5 mg PO BID 07/29/15 [History Last Taken 03/05/16] quetiapine 50 mg tablet (Seroquel) 150 mg PO QHS 03/05/16 [History Last Taken 03/05/16] albuterol sulfate 90 mcg/actuation aerosol inhaler (ProAir HFA) 2 puff inhalation Q4H PRN PRN Shortness Of Breath 03/30/16 [History Last Taken Unknown] gabapentin 300 mg capsule 600 mg PO QHS 12/12/22 [History Last Taken Unknown] Allergy/AdvReac Type Severity Reaction Status Date / Time No Known Allergies Allergy Verified 12/11/22 17:11 Social History Smoking Status: Current every day smoker tobacco type: smokeless tobacco Physical Exam Narrative Well-developed obese gentleman with a BMI of 34 in no respiratory distress. He did not cough or use accessory muscles during today's visit. His inability to speak a full sentence seemed more due to autism than shortness of breath. HEENT is unremarkable with moist mucous membranes. No retrognathia, he would not cooperate with a posterior pharyngeal exam to determine Mallampati stage. Neck is supple and short. Chest has crackles at both lung bases, with no wheezes no rhonchi. Breath sounds are not diminished. Heart: Normal S1-S2 regular rhythm no murmurs rubs or gallops. Abdomen is obese Extremities have 2+ pitting edema bilaterally Skin is warm and dry Neuro exam is incomplete but grossly nonfocal. He is able to use a hand-held video game approximately 6 x 9 console quite well and quickly with the fingers of both hands. Lab / Micro Data Lab results narrative: Leukocytosis with left shift. No eosinophilia. Abnormal liver function test, with fatty liver on CT scan and hypoalbuminemia. Normal l bilirubin Result Diagrams: 12/15/22 05:18 12/15/22 05:18 Labs: Laboratory Results - last 24 hr 12/15/22 05:18: WBC 12.5 H, RBC 4.27 L, Hgb 13.1, Hct 40.2, MCV 94.1 H, MCH 30.7, MCHC 32.6, RDW Std Deviation 44.6 H, RDW Coeff of Dony 13.0, Plt Count 239, MPV 9.6, Neut % (Auto) Not Reportable, Absolute Neuts (auto) 8.3 H, Absolute Lymphs (auto) 2.88, Total Counted 100, Neutrophils % (Manual) 60, Band Neutrophils % 1, Lymphocytes % (Manual) 23, Monocytes % (Manual) 7, Eosinophils % (Manual) 3, Basophils % (Manual) 1, Metamyelocytes % 3 H, Myelocytes % 2 H, Diff Path Review May , Platelet Estimate ADEQUATE, RBC Morphology NORM C+C 12/15/22 05:18: Sodium 139, Potassium 3.9, Chloride 100, Carbon Dioxide 35.0 H, Anion Gap 4 L, BUN 11, Creatinine 0.66 L, Estim Creat Clear Calc 152.12, Est GFR (MDRD) Af Amer 169, Est GFR (MDRD) Non-Af 140, BUN/Creatinine Ratio 16.7, Glucose 110 H, Calcium 8.9 12/15/22 05:18: Total Bilirubin 0.40, Direct Bilirubin 0.25, AST 24, ALT 127 H, Alkaline Phosphatase 243 H, Total Protein 6.6, Albumin 2.4 L, Globulin 4.2 Micro: All cultures are negative to date including blood in urine, Respiratory PCR and rapid SARS and influenza were negative. ABG Data ABG results: No ABG on file Interpretation: Chest X-Ray? 12/11/22 17:53 IMPRESSION: Question mild vascular congestion. ? Electronically Signed: Misha Horner DO at 18:06 EDT Reading Location ID and State: [email or web address] / [place] Tel [phone], Service support? , ? Gallbladder Ultrasound? 12/11/22 19:18 IMPRESSION: 1.? Limited study due to bowel gas and patient condition. The pancreatic tail and lower pole of the right kidney are poorly visualized. 2.? Otherwise normal right upper quadrant abdominal ultrasound. ? Electronically Signed: Mihsa Horner DO at 20:19 EDT [email or web address] [phone], Service support? , ? Abdomen/Pelvis CT? 12/11/22 20:34 IMPRESSION: 1.? Prominent liver with geographic fatty infiltration. There is no focal mass. Scattered granulomata are noted. 2.? Splenomegaly with calcified granuloma. 3.? Otherwise normal CT of the abdomen and pelvis. 4.? Volume loss in the atelectasis at the left lung base with calcified pleural plaque. Question asbestos exposure. ? Electronically Signed: Misha Horner DO at 21:20 EDT Reading [email or web address] [phone], Service support? , ? Radiology Impression Chest X-Ray 12/15/22 05:55 IMPRESSION: No change from 12/13/2022. Electronically Signed: Jayden Jones MD at 8:24 EDT , Charges/Coding Visit Charges Inpatient E&M: 31753 Init Hosp L3
[2022-12-15 18:09] LABS: Vancomycin, Trough Level 20.2 ug/mL (5.0-15.0)
--- NOTE | 2022-12-15 18:32 | PCM.RX.CS ---
Consult Pharmacy has been consulted to manage selected antiobiotic: Vancomycin Type of Consult: Follow-up Prior Doses of Antibiotics Received/Current Regimen: 1500mg iv q8h Labs: Sodium 139 mmol/L (136-145) 12/15/22 05:18 Potassium 3.9 mmol/L (3.5-5.1) 12/15/22 05:18 Chloride 100 mmol/L (98-107) 12/15/22 05:18 Carbon Dioxide 35.0 mmol/L (21.0-32.0) H 12/15/22 05:18 Anion Gap 4 (5-15) L 12/15/22 05:18 BUN 11 mg/dL (7-18) 12/15/22 05:18 Creatinine 0.66 mg/dL (0.70-1.30) L 12/15/22 05:18 Est GFR (MDRD) Af Amer 169 mL/min (>60) 12/15/22 05:18 Est GFR (MDRD) Non-Af 140 mL/min (>60) 12/15/22 05:18 BUN/Creatinine Ratio 16.7 RATIO (10-20) 12/15/22 05:18 Glucose 110 mg/dL (74-106) H 12/15/22 05:18 Vancomycin Trough 20.2 ug/mL (5.0-15.0) H 12/15/22 17:38 Microbiology: Microbiology 12/11/22 19:00 Blood Culture (Wb) - Anticubital Left Blood Culture - Preliminary No growth in 48 hours. 12/11/22 17:50 Blood Culture (Wb) - Anticubital Left Blood Culture - Preliminary No growth in 48 hours. 12/13/22 13:50 Mucosa - Nasopharyngeal Respiratory Panel (PCR) - Final 12/11/22 19:00 Urine, Clean Catch Urine Culture - Final Culture exhibits no growth. 12/11/22 18:09 Nasal Secretion SARS-CoV-2 & FLU Antigen (Rapid) - Final Weight used for dosin kg Estimated Creatinine Clearance: >100 ml/mi Goal Trough: 15-20 mcg/mL Pharmacy Plan for Drug Dosing: Trough 20.2 and slightly above goal of 15-20 mcg/ml. Will hold dosing and get another trough in AM. To determine dose and start when level <20. Pharmacy Service will continue to monitor and adjust dosing as required. Follow-Up Labs: Trough Vancomycin - 6.19.23 @0600
[2022-12-15] MEDS: Acetaminophen 325 MG Tablet 650 MG PO (20:18)
[2022-12-15] MEDS: Gabapentin 300 MG Capsule 600 MG PO (22:32)
[2022-12-15] MEDS: Divalproex (ER) 500 MG Tablet 1000 MG PO (22:33)
[2022-12-15] MEDS: QUEtiapine 100 MG Tablet 150 MG PO (22:33)
[2022-12-15] MEDS: Montelukast 10 MG Tablet PO (22:35)
[2022-12-16 00:32] VITALS: BMI 34.7
[2022-12-16 05:00] VITALS: BP 127/86; PULSE 69; RESP 16; TEMP 36.8; O2SAT 94
[2022-12-16] MEDS: 0.9% Saline Lock 10 ML Syringe IV (05:19)
[2022-12-16] MEDS: Furosemide 40 MG/4 ML Vial IV ×2 (05:19→13:36)
[2022-12-16 06:27] LABS: Hematocrit 38.2 % (40-54); Hemoglobin 12.6 g/dL (13.0-16.5); Mean Corpuscular Hgb 31.1 pg (27.0-32.0); Mean Corpuscular Volume 94.3 fL (80-94); Mean Platelet Vol. 9.3 fl (6.2-12.0); POSITIVE COUNT YES; POSITIVE MORPHOLOGY YES; Platelet Count 246 K/mm3 (150-450); RBC Distribution Width CV 12.8 % (11.6-14.6); RBC Distribution Width SD 44.6 fl (35.1-43.9); Red Blood Count 4.05 M/mm3 (4.6-6.2); White Blood Count 9.7 K/mm3 (4.4-11.0)
[2022-12-16 06:41] LABS: Anion Gap 4 (5-15); BUN 12 mg/dL (7-18); BUN/Creat Ratio 17.5 RATIO (10-20); Calcium,Total 9.2 mg/dL (8.5-10.1); Chloride 94 mmol/L (98-107); Creatinine, Serum 0.68 mg/dL (0.70-1.30); EST Glomerular Filtration Rate 133 mL/min (>60); Est Glom Filt Rate - Afr Amer 161 mL/min (>60); Estimated Creatinine Clearance 147.65 ml/min; Glucose 111 mg/dL (74-106); Potassium 3.7 mmol/L (3.5-5.1); Sodium Level 138 mmol/L (136-145)
[2022-12-16 06:44] LABS: Vancomycin, Trough Level 9.7 ug/mL (5.0-15.0)
[2022-12-16 06:49] LABS: Differential Indicated MANUAL DIFF
[2022-12-16 06:53] LABS: Platelet Estimate ADEQUATE (ADEQ)
[2022-12-16 06:54] LABS: Red Cell Morphology NORM C+C NORMAL (NORM C&C)
[2022-12-16 06:57] LABS: Absolute Lymphocyte Count 1.95 X10^3/uL (0.83-4.51); Absolute Neutrophil Count 6.5 X10^3/uL (2.0-7.7); Atypical Lymphocyte 1+ %; Eosinophil 2 % (0-5); Lymphocyte 20 % (19-41); Monocyte 7 % (0-10); Myelocyte 4 % (0-0); Neutrophil-Band 11 % (0-5); Neutrophil-Segmented 56 % (47-70); Total Cells Counted 100 (MANUAL DIFF)
--- NOTE | 2022-12-16 07:15 | PCM.RX.CS ---
Consult Type of Consult: Follow-up Suspected Infection: Other Labs: Sodium 138 mmol/L (136-145) 12/16/22 05:40 Potassium 3.7 mmol/L (3.5-5.1) 12/16/22 05:40 Chloride 94 mmol/L (98-107) L 12/16/22 05:40 Carbon Dioxide 40.0 mmol/L (21.0-32.0) H 12/16/22 05:40 Anion Gap 4 (5-15) L 12/16/22 05:40 BUN 12 mg/dL (7-18) 12/16/22 05:40 Creatinine 0.68 mg/dL (0.70-1.30) L 12/16/22 05:40 Est GFR (MDRD) Af Amer 161 mL/min (>60) 12/16/22 05:40 Est GFR (MDRD) Non-Af 133 mL/min (>60) 12/16/22 05:40 BUN/Creatinine Ratio 17.5 RATIO (10-20) 12/16/22 05:40 Glucose 111 mg/dL (74-106) H 12/16/22 05:40 Vancomycin Trough 9.7 ug/mL (5.0-15.0) 12/16/22 05:40 Microbiology: Microbiology 12/11/22 19:00 Blood Culture (Wb) - Anticubital Left Blood Culture - Preliminary No growth in 48 hours. 12/11/22 17:50 Blood Culture (Wb) - Anticubital Left Blood Culture - Preliminary No growth in 48 hours. 12/13/22 13:50 Mucosa - Nasopharyngeal Respiratory Panel (PCR) - Final 12/11/22 19:00 Urine, Clean Catch Urine Culture - Final Culture exhibits no growth. 12/11/22 18:09 Nasal Secretion SARS-CoV-2 & FLU Antigen (Rapid) - Final Goal Trough: 15-20 mcg/mL Pharmacy Plan for Drug Dosing: VANCOMYCIN LEVEL RECEIVED Current Vancomycin Dose: on HOLD following SUPRAtherapeutic level @ 1500mg Q8H Number of Doses Received: 1500mg x3 Vancomycin Level: 9.7 Hours Since Last Dose: 20 Renal Function: sCr 0.68 Renal Function Trend: stable Lab/Micro: negative Vancomycin Plan/Comments: Vancomycin 1250mg Q8H Pending Level: Vancomycin trough @ 0830 12/17/22 Pharmacy Service will continue to monitor and adjust dosing as required. Labs to be done on [date and time ordered]: Vancomycin trough @ 0830 12/17/22
[2022-12-16] MEDS: Divalproex (ER) 500 MG Tablet PO (08:18)
[2022-12-16] MEDS: Loratadine 10 MG Tablet PO (08:20)
[2022-12-16] MEDS: RisperiDONE 1 MG Tablet 1.5 MG PO (08:20)
[2022-12-16] MEDS: Docusate Sodium 100 MG Capsule 200 MG PO (08:20)
[2022-12-16] MEDS: Benztropine 2 MG Tablet 1 MG PO (08:20)
[2022-12-16] MEDS: buPROPion (XL) 150 MG TABLET.XL PO (08:21)
[2022-12-16] MEDS: Gabapentin 300 MG Capsule PO (08:29)
[2022-12-16 08:50] VITALS: BP 136/61; PULSE 67; RESP 18; TEMP 36.9; O2SAT 98
[2022-12-16 10:16] VITALS: O2SAT 88; O2SAT 90; O2SAT 91; O2SAT 93
--- NOTE | 2022-12-16 11:22 | DCINST_ITS ---
Discharge Instructions Diet Discharge Diet: 6 Cup Fluid Restriction Activity Discharge Activity: Return to Normal Activity Dressing / Incision Call your doctor if you observe: Fever of 101 or Higher, Shortness of breath, Dizziness, Fainting spells, Swelling in the ankles, Chest pain and Increased palpitations (irregular heartbeat) Follow Up Care Test Results: Test results from this visit will be discussed in further detail at your follow- up appointment, if applicable. Discharge Plan Admission Admit Date/Time: 12/12/22 00:47 Attending Provider: Aryan Wagner Primary Care Provider: Leroy George Consulting Providers: Jay Vidales ; William Nielsen ; Mihai Munoz ; Ap De La Rosa ; Baldev Guillen ; Sole Kemp NP ; Maryjo Rivas Discharge Orders/Prescriptions Prescriptions: New furosemide [Lasix] 20 mg tablet 20 mg PO DAILY Qty: 30 0RF amoxicillin-pot clavulanate 875-125 mg tablet 1 tab PO BID 3 Days Qty: 6 0RF Continued ascorbic acid (vitamin C) [Vitamin C] 500 MG tablet 1,000 mg PO DAILY@0800 divalproex 500 MG tablet 500 mg PO DAILY@0800 docusate sodium [DOK] 100 MG capsule 200 mg PO BID montelukast 10 MG tablet 10 mg PO QHS loratadine [Allergy Relief (loratadine)] 10 MG tablet 10 mg PO DAILY vitamin E (dl, acetate) 400 UNITS capsule 400 units PO BID divalproex 500 MG tablet 1,000 mg PO QHS benztropine 2 MG tablet 1 mg PO BID gabapentin 300 MG capsule 300 mg PO BID bupropion HCl 150 MG tablet extended release 24 hr 150 mg PO DAILY Risperdal 1.5 mg PO BID quetiapine [Seroquel] 50 MG tablet 150 mg PO QHS albuterol sulfate [ProAir HFA] 1 PUFF inhaler 2 puff inhalation Q4H PRN PRN (Reason: Shortness Of Breath) gabapentin 300 mg Capsule 600 mg PO QHS Referrals / Follow Up: Leroy George MD [Primary Care Provider] - Within 1 Week Disposition Disposition (needs filled in before D/C Order can be placed): Home, Self Care
--- NOTE | 2022-12-16 12:38 | PHA.DC.MR ---
Pharmacy Service has performed discharge medication reconciliation for this patient. The patient's discharge medication list was reviewed for discrepancies and discrepancies were resolved. Patient with autism, did not addictions counselor. Home Medications ascorbic acid (vitamin C) 500 mg tablet (Vitamin C) 1,000 mg PO DAILY@0800 04/05/13 benztropine 2 mg tablet 1 mg PO BID 04/05/13 divalproex 500 mg tablet,extended release 24 hr 1,000 mg PO QHS 04/05/13 divalproex 500 mg tablet,extended release 24 hr 500 mg PO DAILY@0800 04/05/13 docusate sodium 100 mg capsule (DOK) 200 mg PO BID 04/05/13 gabapentin 300 mg capsule 300 mg PO BID 04/05/13 loratadine 10 mg tablet (Allergy Relief (loratadine)) 10 mg PO DAILY 04/05/13 montelukast 10 mg tablet 10 mg PO QHS 04/05/13 vitamin E (dl, acetate) 180 mg (400 unit) capsule 400 units PO BID 04/05/13 bupropion HCl 150 mg 24 hr tablet, extended release 150 mg PO DAILY 03/31/14 Risperdal 1.5 mg PO BID 07/29/15 quetiapine 50 mg tablet (Seroquel) 150 mg PO QHS 03/05/16 albuterol sulfate 90 mcg/actuation aerosol inhaler (ProAir HFA) 2 puff inhalation Q4H PRN PRN Shortness Of Breath 03/30/16 gabapentin 300 mg capsule 600 mg PO QHS 12/12/22 amoxicillin 875 mg-potassium clavulanate 125 mg tablet 1 tab PO BID 3 days #6 tabs 12/16/22 furosemide 20 mg tablet (Lasix) 20 mg PO DAILY #30 tabs 12/16/22
[2022-12-16 13:00] LABS: Pathologist Review Reviewed
--- NOTE | 2022-12-16 13:01 | CASEMGMT ---
Addendum entered by Sophie Hines 12/16/22 13:57: Spoke with Mayra at [facility] who is requesting that the nurse take a portable tank and show pt sister when she arrives how to use oxygen. Updated pt nurse Courtney. Original Note: Pt qualifies for home oxygen. Referral sent to [facility] via [facility]. RN BETO into pt room, explained homegoing oxygen instructions to pt, he verbalized understanding. TC to pt sister and guardian, Yenny Chen, discussed the home oxygen process with her as well. She verbalized understanding. She states that she will be in when her gets home from work but he is in [place] and she does not know what time he will be home. Updated [facility] that pt sister needs to sign any paperwork for the oxygen and that pt may be home late.
--- NOTE | 2022-12-16 13:04 | PCM.DC.SUM ---
Providers Date of Admission: 12/12/22 Primary Care Physician: Dr. Leroy George MD Consultations 12/14/22 17:59 Consult: [facility] [employer] / Pulmonary Medicine Routine Consulting Provider: [facility] [place] Reason for Consult: persistent hypoxia EMERGENT Consult: No MD Notified: Yes Date Notified: 12/14/22 Time Notified: 18:00 Method of Notification: Verbal Reason For Visit: HYPOXIA, URI, LEUKOCYTOSIS WITH BANDEMIA Diagnosis Discharge Diagnosis (1) Hypoxia: Status: Acute Code(s): R09.02 - Hypoxemia (2) URI (upper respiratory infection): Status: Acute Code(s): J06.9 - Acute upper respiratory infection, unspecified Medications at Discharge Home Medications ascorbic acid (vitamin C) 500 mg tablet (Vitamin C) 1,000 mg PO DAILY@0800 04/05/13 benztropine 2 mg tablet 1 mg PO BID 04/05/13 divalproex 500 mg tablet,extended release 24 hr 1,000 mg PO QHS 04/05/13 divalproex 500 mg tablet,extended release 24 hr 500 mg PO DAILY@0800 04/05/13 docusate sodium 100 mg capsule (DOK) 200 mg PO BID 04/05/13 gabapentin 300 mg capsule 300 mg PO BID 04/05/13 loratadine 10 mg tablet (Allergy Relief (loratadine)) 10 mg PO DAILY 04/05/13 montelukast 10 mg tablet 10 mg PO QHS 04/05/13 vitamin E (dl, acetate) 180 mg (400 unit) capsule 400 units PO BID 04/05/13 bupropion HCl 150 mg 24 hr tablet, extended release 150 mg PO DAILY 03/31/14 Risperdal 1.5 mg PO BID 07/29/15 quetiapine 50 mg tablet (Seroquel) 150 mg PO QHS 03/05/16 albuterol sulfate 90 mcg/actuation aerosol inhaler (ProAir HFA) 2 puff inhalation Q4H PRN PRN Shortness Of Breath 03/30/16 gabapentin 300 mg capsule 600 mg PO QHS 12/12/22 amoxicillin 875 mg-potassium clavulanate 125 mg tablet 1 tab PO BID 3 days #6 tabs 12/16/22 furosemide 20 mg tablet (Lasix) 20 mg PO DAILY #30 tabs 12/16/22 Hospital Course Operations None Procedures 2-D Echocardiogram Summary of Care Provided Minutes Spent on Discharge: 38 Hospital Course: Per HPI: ELIAS LOPEZ, is a 42 M who presents with mother after fever. The patient had temp 103 which improved with Tylenol. He was more sleepy in the afternoon. No known sick contacts. Patient does not give much history, but states he has no trouble breathing. Patient has hx of autism. There are no known sick contacts. Patient's only concern is the scab on his back. CXR here showed no sign of pneumonia. UA with leuks however no nitrates/WBC . The blood cultures were sent, as well as urine cultures. He was 87% on RA. Then stabilized to 90-92% on Room air. He responded well to NC 3 liters.? He was ambulated, and fell to 78% and was admitted to observation for hypoxia evaluation and monitoring. Hospital Course: 1. Hypoxia with fever and elevated liver enzymes?42-year-old male with autism presents to the hospital with vague findings. Infectious work-up is unremarkable but his white count was elevated and did improve with antibiotics. He was also found to have some vascular congestion on chest x-ray and his BNP was mildly elevated. He was started on diuresis and did have improvement in his respiratory status. I do recommend a fluid restriction as well as a low-dose Lasix on discharge. Echo was negative for any diastolic or systolic dysfunction. He states that he is feeling much better today and I discussed with him the possibility of going home which she would like. He did have an ambulatory pulse ox which demonstrated the need for oxygen both at rest and with ambulation. I do recommend that he follow-up with his PCP in 3 to 5 days to obtain an outpatient sleep study to evaluate for obstructive sleep apnea secondary to his BMI. Pulmonology was consulted and signed off without much to add. Given his improvement in his white blood cell count with antibiotics we will also plan for Augmentin for 3 more days p.o. If he continues to have constipation issues I did recommend MiraLAX as needed. Physical Exam Narrative General: Alert, Cooperative, No apparent distress HEENT: Atraumatic, PERRLA, EOMI, Normocephalic Oral: Moist Mucosa Neck: Supple, No JVD Lungs: Diminished, Normal air movement, No rhonchi, No wheeze, No rales Cardiovascular: Regular rate, Regular Rhythm, Normal S1, Normal S2, No murmurs Abdomen: Soft, Non Tender, Non-Distended, No Hepato-splenomegaly Extremities: No edema, Capillary Refill Less than 3 Seconds Skin: No rashes, No breakdown Musculoskeletal: No Tenderness to Palpation of Joints or Extremities Neurological: Cranial nerves II-XII grossly intact, Motor Exam 5/5 strength throughout, Sensory exam intact to light touch and pain Psych/Mental Status: Normal Affect, Appropriate Weight / BMI Weight Weight: 249 lb 8 oz Body Mass Index (BMI) 34.7 ABG / Lab / Microbiology Data Result Diagrams: 12/16/22 05:40 12/16/22 05:40 Laboratory: Laboratory Results - last 24 hr 12/14/22 08:20: Diff Path Review Reviewed 12/15/22 17:38: Vancomycin Trough 20.2 H 12/16/22 05:40: WBC 9.7, RBC 4.05 L, Hgb 12.6 L, Hct 38.2 L, MCV 94.3 H, MCH 31.1, MCHC 33.0, RDW Std Deviation 44.6 H, RDW Coeff of Dony 12.8, Plt Count 246, MPV 9.3, Neut % (Auto) Not Reportable, Absolute Neuts (auto) 6.5, Absolute Lymphs (auto) 1.95, Total Counted 100, Neutrophils % (Manual) 56, Band Neutrophils % 11 H, Lymphocytes % (Manual) 20, Monocytes % (Manual) 7, Eosinophils % (Manual) 2, Myelocytes % 4 H, Diff Path Review May foll, Atypical Lymphocytes 1+, Platelet Estimate ADEQUATE, RBC Morphology NORM C+C 12/16/22 05:40: Sodium 138, Potassium 3.7, Chloride 94 L, Carbon Dioxide 40.0 H, Anion Gap 4 L, BUN 12, Creatinine 0.68 L, Estim Creat Clear Calc 147.65, Est GFR (MDRD) Af Amer 161, Est GFR (MDRD) Non-Af 133, BUN/Creatinine Ratio 17.5, Glucose 111 H, Calcium 9.2 12/16/22 05:40: Vancomycin Trough 9.7 Microbiology: Microbiology 12/11/22 19:00 Blood Culture (Wb) - Anticubital Left Blood Culture - Preliminary No growth in 48 hours. 12/11/22 17:50 Blood Culture (Wb) - Anticubital Left Blood Culture - Preliminary No growth in 48 hours. 12/13/22 13:50 Mucosa - Nasopharyngeal Respiratory Panel (PCR) - Final 12/11/22 19:00 Urine, Clean Catch Urine Culture - Final Culture exhibits no growth. 12/11/22 18:09 Nasal Secretion SARS-CoV-2 & FLU Antigen (Rapid) - Final D/C Instructions Discharge Diet: 6 Cup Fluid Restriction Call your doctor if you observe: Fever of 101 or Higher, Shortness of breath, Dizziness, Fainting spells, Swelling in the ankles, Chest pain and Increased palpitations (irregular heartbeat) Meaningful Use Info Meaningful Use Diagnoses (Choose all that apply): None applicable Discharge Plan Admission Admit Date/Time: 12/12/22 00:47 Attending Provider: Aryan Wagner Primary Care Provider: Leroy George Consulting Providers: Jay Vidales ; William Nielsen ; Mihai Munoz ; Ap De La Rosa ; Baldev Guillen ; Sole Kemp NP ; Maryjo Rivas Discharge Orders/Prescriptions Prescriptions: New furosemide [Lasix] 20 mg tablet 20 mg PO DAILY Qty: 30 0RF amoxicillin-pot clavulanate 875-125 mg tablet 1 tab PO BID 3 Days Qty: 6 0RF Continued ascorbic acid (vitamin C) [Vitamin C] 500 MG tablet 1,000 mg PO DAILY@0800 divalproex 500 MG tablet 500 mg PO DAILY@0800 docusate sodium [DOK] 100 MG capsule 200 mg PO BID montelukast 10 MG tablet 10 mg PO QHS loratadine [Allergy Relief (loratadine)] 10 MG tablet 10 mg PO DAILY vitamin E (dl, acetate) 400 UNITS capsule 400 units PO BID divalproex 500 MG tablet 1,000 mg PO QHS benztropine 2 MG tablet 1 mg PO BID gabapentin 300 MG capsule 300 mg PO BID bupropion HCl 150 MG tablet extended release 24 hr 150 mg PO DAILY Risperdal 1.5 mg PO BID quetiapine [Seroquel] 50 MG tablet 150 mg PO QHS albuterol sulfate [ProAir HFA] 1 PUFF inhaler 2 puff inhalation Q4H PRN PRN (Reason: Shortness Of Breath) gabapentin 300 mg Capsule 600 mg PO QHS Referrals / Follow Up: Leroy George MD [Primary Care Provider] - Within 1 Week Disposition Disposition (needs filled in before D/C Order can be placed): Home, Self Care Charges/Coding Visit Charges Inpatient E&M: 77260 Disch Hosp >30min
[2022-12-16 13:08] LABS: Pathologist Review Reviewed
[2022-12-16 13:13] LABS: Pathologist Review Reviewed
[2022-12-16] MEDS: Acetaminophen 325 MG Tablet 650 MG PO (13:35)
[2022-12-16] MEDS: Bisacodyl 10 MG Suppository RC (15:05)
[2022-12-16 17:11] VITALS: BP 132/72; PULSE 68; RESP 18; TEMP 36.9; O2SAT 98
== END 2022-12-16 18:06 | disposition home or self-care (01) | DRG 144 ==
LOC: ED 21:35 → ICU 12-12 07:19 → MS3 12-13 10:43
PROVIDERS: Student in an Organized Health Care Education/Training Program; Admitting Provider Hospitalist; Emergency Provider Emergency Medicine; PCP Family Medicine; Visit Provider Family Medicine
DX: R09.02 Hypoxemia (principal); D72.825 Bandemia; K76.0 Fatty (change of) liver, not elsewhere classified; J44.9 Chronic obstructive pulmonary disease, unspecified; E78.00 Pure hypercholesterolemia, unspecified; G47.30 Sleep apnea, unspecified; F17.220 Nicotine dependence, chewing tobacco, uncomplicated; K82.8 Other specified diseases of gallbladder; J06.9 Acute upper respiratory infection, unspecified; Z79.01 Long term (current) use of anticoagulants; F84.0 Autistic disorder; E66.9 Obesity, unspecified; Z68.34 Body mass index [BMI] 34.0-34.9, adult; R50.9 Fever, unspecified
CPT/HCPCS: 36415; 71045; 74177; 76705; 80048; 80053; 80076; 80202; 81001; 82728; 82977; 83516; 83540; 83550; 83605; 83880; 84145; 85025; 85610; 85730; 86140; 86706; 86708; 86709; 86803; 87040; 87086; 87340; 87428; 87633; 93005; 93306; 94640; 94668; 94762; 99252; 99284; 99406; J7030; J7040; J7050; Q9957; Q9967; A4216; C8929; G0463; J0295; J1940

== ENCOUNTER → 2023-04-04 | Outpatient (CLI) | payer MEDICAID, SELFPAY | END | disposition home or self-care (01) | LOC: SL 20:05 | PROVIDERS: PCP Family Medicine | DX: R06.83 Snoring (principal); R09.02 Hypoxemia; G47.10 Hypersomnia, unspecified | CPT/HCPCS: 95810 ==

== ENCOUNTER 2024-01-08 18:50 | Observation (INO) | payer MEDICAID, SELFPAY ==
[2024-01-08 18:51] VITALS: BP 156/93; PULSE 95; RESP 16; TEMP 36; O2SAT 93
--- NOTE | 2024-01-08 19:20 | CT_ITS ---
EXAM: CT ABDOMEN AND PELVIS WITH INTRAVENOUS CONTRAST CLINICAL INDICATION: constipation, pain TECHNIQUE: Helically acquired images were obtained of the abdomen and pelvis with intravenous contrast. This CT exam was performed using one or more of the following dose reduction techniques: automated exposure control, adjustment of the mA and/or kV according to patient size, and/or use of iterative reconstruction technique. CONTRAST: IV 100mL Isovue-300 COMPARISON: 12/11/2022 FINDINGS: LOWER THORAX: Mild cardiomegaly and trace pericardial effusion. 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 ABDOMEN: LIVER: No significant abnormality. Homogeneous. No focal mass. GALLBLADDER AND BILE DUCTS: No significant abnormality. No calcified gallstones. No gallbladder distention or wall edema. No intra- or extrahepatic biliary ductal dilation. PANCREAS: No significant abnormality. No focal cystic or solid mass. SPLEEN: Splenic granulomas and mild splenomegaly. No focal splenic abnormality. ADRENALS: No significant abnormality. No nodules. KIDNEYS AND URETERS: No significant abnormality. Normal renal size and position. No hydronephrosis. STOMACH AND BOWEL: Large volume colorectal stool retention with marked colonic distention and rectal distention measuring up to approximately 8.8 cm transverse. Moderately distended fluid-filled loops of small bowel likely secondary to ileus. No focal inflammatory change. PELVIS: APPENDIX: No evidence of acute appendicitis. BLADDER: No significant abnormality. REPRODUCTIVE: Normal as visualized. No mass. ABDOMEN and PELVIS: INTRAPERITONEAL SPACE: No significant abnormality. No ascites or other fluid collection. No free air. BONES/JOINTS: No significant abnormality. No suspicious lytic or blastic abnormality. SOFT TISSUES: No significant abnormality. No discrete abdominal or pelvic wall hernia. VASCULATURE: No significant abnormality. Abdominal aorta is non-dilated. LYMPH NODES: No significant abnormality. No enlarged lymph nodes. CT/Abdomen/Pelvis W IV Cont ONLY IMPRESSION: 1. Large volume colorectal stool retention with marked colonic distention and rectal distention measuring up to approximately 8.8 cm transverse. 2. Splenic granulomas and mild splenomegaly. No focal splenic abnormality. 3. Mild cardiomegaly and trace pericardial effusion. 4. 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 5. Moderately distended fluid-filled loops of small bowel likely secondary to ileus. Electronically Signed: Hipolito Nicolas DO at 20:32 EDT ,
--- NOTE | 2024-01-08 19:30 | EDS_ITS ---
HPI <JOSE LUIS Yoder - Last Filed: 01/08/24 21:56> History of Present Illness Chief Complaint: Abd Pain Narrative Narrative: 43-year-old male with autism was brought in by his sister who is his guardian for 1 month of abdominal issues and constipation. He started taking 1 capful of MiraLAX daily as instructed by his primary care doctor and was having bowel movements but continued to have abdominal distention and intermittent pain. About 2 weeks ago he went to [place] ED and reportedly had a CAT scan showing significant stool but no obstruction. His sister states they initially plan to keep him overnight for observation for cleanout but they did an enema and he had a bowel movement so they discharged him home with instructions to take 2 caps of MiraLAX a day. After doing this for a week he was having frequent bowel movements sometimes hard sometimes diarrhea and having accidents. He saw Dr. Ben Loomis 2 days ago and was complaining of diarrhea at that time so was told to take 1 cap of MiraLAX every other day. He most recently took 1 This morning but today has worsening abdominal distention, does not want to eat, and is still saying he needs to have a bowel movement. No vomiting. No history of obstruction. He is appendectomy [facility] <JOSE LUIS Yoder - Last Filed: 01/08/24 21:56> [facility] Medical History (Updated 01/08/24 @ 21:55 by JOSE LUIS Yoder) Asthma COPD (chronic obstructive pulmonary disease) OCD (obsessive compulsive disorder) High cholesterol Autism Home Medications ?Medication ?Instructions ?Recorded ?Last Taken ?Type ascorbic acid (vitamin C) 500 mg 1,000 mg PO DAILY@0800 04/05/13 03/05/16 History tablet (Vitamin C) benztropine 2 mg tablet 1 mg PO BID 04/05/13 03/05/16 History divalproex 500 mg tablet,extended 1,000 mg PO QHS 04/05/13 03/04/16 History release 24 hr divalproex 500 mg tablet,extended 500 mg PO DAILY@0800 04/05/13 03/05/16 History release 24 hr docusate sodium 100 mg capsule 200 mg PO BID 04/05/13 03/05/16 History (DOK) gabapentin 300 mg capsule 300 mg PO BID 04/05/13 03/05/16 History loratadine 10 mg tablet (Allergy 10 mg PO DAILY 04/05/13 03/05/16 History Relief (loratadine)) montelukast 10 mg tablet 10 mg PO QHS 04/05/13 03/04/16 History vitamin E (dl, acetate) 180 mg 400 units PO BID 04/05/13 03/05/16 History (400 unit) capsule bupropion HCl 150 mg 24 hr tablet, 150 mg PO DAILY 03/31/14 03/05/16 History extended release Risperdal 1.5 mg PO BID 07/29/15 03/05/16 History quetiapine 50 mg tablet (Seroquel) 150 mg PO QHS 03/05/16 03/05/16 History albuterol sulfate 90 mcg/actuation 2 puff inhalation Q4H PRN PRN 03/30/16 Unknown History aerosol inhaler (ProAir HFA) Shortness Of Breath gabapentin 300 mg capsule 600 mg PO QHS 12/12/22 Unknown History amoxicillin 875 mg-potassium 1 tab PO BID 3 days #6 tabs 12/16/22 Unknown Rx clavulanate 125 mg tablet furosemide 20 mg tablet (Lasix) 20 mg PO DAILY #30 tabs 12/16/22 Unknown Rx Allergy/AdvReac Type Severity Reaction Status Date / Time No Known Allergies Allergy Verified 01/08/24 18:51 Social History Smoking Status: Current every day smoker tobacco type: smokeless tobacco ROS <JOSE LUIS Yoder - Last Filed: 01/08/24 21:56> ROS ED ROS Narrative Constitutional: Negative for fever, chills, malaise. GI: Positive for abdominal pain, constipation. Negative for vomiting. : Negative for dysuria. EXAM <JOSE LUIS Yoder - Last Filed: 01/08/24 21:56> Physical Exam Narrative Exam Narrative: CONST: Patient sitting in no acute distress. EYES: Normal inspection. NECK: Normal inspection. RESP: No respiratory distress, CTAB. On nasal cannula O2. CVS: Regular rate and rhythm, no murmur, no gallop. ABD: Moderately distended abdomen with generalized tenderness and fullness, no rigidity, normal bowel sounds x 4. SKIN: Color normal, no rash, warm, dry, intact. EXTREMITIES: Normal appearance, no pedal edema. NEURO: Alert and answering questions appropriately. PSYCH: Normal affect. Const Vital Signs: 01/08/24 18:51 Temperature 96.8 F L Temperature Source Temporal Pulse Rate 95 Respiratory Rate 16 Blood Pressure 156/93 H Blood Pressure Mean 114 Pulse Ox 93 Oxygen Delivery Method Nasal Cannula Oxygen Flow Rate (L/min) 2 <Victor Hugo Clemens MD - Last Filed: 01/08/24 22:38> Physical Exam Const Vital Signs: 01/08/24 18:51 Temperature 96.8 F L Temperature Source Temporal Pulse Rate 95 Respiratory Rate 16 Blood Pressure 156/93 H Blood Pressure Mean 114 Pulse Ox 93 Oxygen Delivery Method Nasal Cannula Oxygen Flow Rate (L/min) 2 MDM <JOSE LUIS Yoder - Last Filed: 01/08/24 21:56> MDM MDM Narrative Medical decision making narrative: History gathered from: Patient's sister/guardian, patient Differential: Constipation, ileus, obstruction Patient has had 1 month of constipation issues. Today has worsening abdominal distention and discomfort and decreased appetite. He appears well and nontoxic. Vital signs stable. Abdomen is distended, generally tender, nonperitoneal. There are bowel sounds present in all 4 quadrants. He has a large amount of soft light brown stool in the rectum. CT scan shows a large volume of stool with marked distention throughout. There is some distended fluid-filled loops of bowel but no obstruction. Patient had a large bowel movement while here. I discussed these findings with his sister who does not think she can take him home to do a bowel cleanout and would prefer he be observed in the hospital for this process. I discussed the case with the hospitalist who agreed observation will order laxative treatment. External records reviewed: [facility] CT abdomen/pelvis 12/24/23 Large volume stool retention throughout the colon consistent with constipation. No other abnormality. Lab Data Attestation: I reviewed the patient's lab results. Labs: Laboratory Results - last 24 hr 01/08/24 19:39 WBC 7.0 RBC 4.06 L Hgb 12.5 L Hct 36.5 L MCV 89.9 MCH 30.8 MCHC 34.2 RDW Std Deviation 42.5 RDW Coeff of Dony 13.0 Plt Count 194 MPV 9.7 Immature Gran % (Auto) 0.600 Neut % (Auto) 64.4 Lymph % (Auto) 22.5 [place] % (Auto) 9.1 Eos % (Auto) 3.1 Baso % (Auto) 0.3 Absolute Neuts (auto) 4.5 Absolute Lymphs (auto) 1.58 Nucleated RBC % 0 Sodium 136 Potassium 4.2 Chloride 100 Carbon Dioxide 30.0 Anion Gap 6 BUN 14 Creatinine 0.79 Est GFR (MDRD) Af Amer 137 Est GFR (MDRD) Non-Af 113 BUN/Creatinine Ratio 17.8 Glucose 164 H Calcium 8.7 Radiography Diagnostic Testing: Clinical Impression(s) from Imaging Studies Abdomen/Pelvis CT 01/08/24 19:20 IMPRESSION: 1. Large volume colorectal stool retention with marked colonic distention and rectal distention measuring up to approximately 8.8 cm transverse. 2. Splenic granulomas and mild splenomegaly. No focal splenic abnormality. 3. Mild cardiomegaly and trace pericardial effusion. 4. 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 5. Moderately distended fluid-filled loops of small bowel likely secondary to ileus. Electronically Signed: Hipolito Nicolas DO at 20:32 EDT , <Victor Hugo Clemens MD - Last Filed: 01/08/24 22:38> [facility] Lab Data Labs: Laboratory Results - last 24 hr 01/08/24 19:39 WBC 7.0 RBC 4.06 L Hgb 12.5 L Hct 36.5 L MCV 89.9 MCH 30.8 MCHC 34.2 RDW Std Deviation 42.5 RDW Coeff of Dony 13.0 Plt Count 194 MPV 9.7 Immature Gran % (Auto) 0.600 Neut % (Auto) 64.4 Lymph % (Auto) 22.5 [place] % (Auto) 9.1 Eos % (Auto) 3.1 Baso % (Auto) 0.3 Absolute Neuts (auto) 4.5 Absolute Lymphs (auto) 1.58 Nucleated RBC % 0 Sodium 136 Potassium 4.2 Chloride 100 Carbon Dioxide 30.0 Anion Gap 6 BUN 14 Creatinine 0.79 Est GFR (MDRD) Af Amer 137 Est GFR (MDRD) Non-Af 113 BUN/Creatinine Ratio 17.8 Glucose 164 H Calcium 8.7 Radiography Diagnostic Testing: Clinical Impression(s) from Imaging Studies Abdomen/Pelvis CT 01/08/24 19:20 IMPRESSION: 1. Large volume colorectal stool retention with marked colonic distention and rectal distention measuring up to approximately 8.8 cm transverse. 2. Splenic granulomas and mild splenomegaly. No focal splenic abnormality. 3. Mild cardiomegaly and trace pericardial effusion. 4. 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 5. Moderately distended fluid-filled loops of small bowel likely secondary to ileus. Electronically Signed: Hipolito Nicolas DO at 20:32 EDT , Management Discussion w/another healthcare provider: Hospitalist (Dr. Flanagan) Treatment and Re-Evaluation :: Dr. Clemens: I have personally performed a face to face assessment of the patient and have reviewed the NATY Note. I performed a substantive portion of the visit including all aspects of the following. My van findings include: History is 43-year-old male past medical history of autism recently diagnosed with constipation. According to his sister who is his caregiver, patient has been having problems with constipation for a month. He was seen at an outside facility, and given MiraLAX, told to increase MiraLAX but was going to be observed for bowel cleanout. Patient presents again with abdominal distention and decreased bowel movements. Exam is afebrile. Vital signs noted. Neurological examination consistent with autism. Regular rate and rhythm. Lungs clear to auscultation bilaterally. Abdomen soft, mildly distended with positive bowel sounds. Medical Decision Making: CT obtained and there is a large amount of stool in the colon, with some air-fluid levels consistent with ileus on CT scan and review of the radiology report. Patient was able to have a bowel movement here in the emergency department, very large, so I doubt ileus. His caregiver states that she is unable to care for him at home. Patient discussed with the hospitalist for observation. Patient is in stable condition. Other additions or changes: [None] Discharge Plan Triage Chief Complaint: Abd Pain ED Midlevel Provider: Courtney Grijalva ED Provider: Victor Hugo Clemens Dx/Rx/DC Orders Clinical Impression: Constipation, Abdominal pain Primary Care Provider: Leroy George
[2024-01-08 19:45] LABS: Absolute Lymphocyte Count 1.58 X10^3/uL (0.83-4.51); Absolute Neutrophil Count 4.5 X10^3/uL (2.0-7.7); Basophil# 0.02 X10^3/uL; Basophil% 0.3 % (0-1); Eosinophil# 0.22 X10^3/uL; Eosinophils% 3.1 % (0-5); Hematocrit 36.5 % (40-54); Hemoglobin 12.5 g/dL (13.0-16.5); Lymphocyte # 1.58 X10^3/ul (0.83-4.51); Lymphocyte % 22.5 % (19-41); Mean Corp Hgb Conc 34.2 g/dL (32-36); Mean Corpuscular Hgb 30.8 pg (27.0-32.0); Mean Corpuscular Volume 89.9 fL (80-94); Mean Platelet Vol. 9.7 fl (6.2-12.0); Monocyte# 0.64 X10^3/uL; Monocyte% 9.1 % (0-10); NRBC Flagged by Analyzer 0 % (0-5); Neutrophil # 4.52 X10^3/uL (2.7-7.7); Neutrophil % 64.4 % (47-70); Platelet Count 194 K/mm3 (150-450); RBC Distribution Width SD 42.5 fl (35.1-43.9); Red Blood Count 4.06 M/mm3 (4.6-6.2)
[2024-01-08 20:07] LABS: Anion Gap 6 (5-15); BUN 14 mg/dL (7-18); BUN/Creat Ratio 17.8 RATIO (10-20); Calcium,Total 8.7 mg/dL (8.5-10.1); Chloride 100 mmol/L (98-107); Creatinine, Serum 0.79 mg/dL (0.70-1.30); EST Glomerular Filtration Rate 113 mL/min (>60); Est Glom Filt Rate - Afr Amer 137 mL/min (>60); Glucose 164 mg/dL (74-106); Potassium 4.2 mmol/L (3.5-5.1); Sodium Level 136 mmol/L (136-145)
[2024-01-08 20:50] VITALS: BP 133/94; PULSE 79; RESP 16; O2SAT 99
--- NOTE | 2024-01-08 21:51 | HP.PCM.HOS_ITS ---
HPI - General General Date of Admission: 01/08/24 Date of Service: 01/08/24 Chief Complaint: Intractable abdominal pain, bowel distention. HPI Narrative The patient is a 43 y/o M w/ PMHx: Asthma/COPD w/ Allergic rhinitis, Chronic neuropathy, Mood disorder/OCD/Autism, Former cigarette tobacco use->chew tobacco use, HLD, HTN, Chronic constipation who presents to the [facility] ED on 01/08/24 with history of being brought in by his sister who who is his guardian with 1 month of ongoing abdominal issues specifically severe constipation with ongoing 1 capful daily of MiraLAX with bowel movements elicited however continued to have abdominal distention and intermittent pain approximately 2 weeks prior to current presentation he presented to the [facility] ED with CT scan at that time with significant stool but no obstruction with initial plan to observe overnight and clean out however they did an enema and he had a large bowel movement therefore he was discharged home with increase of the MiraLAX to 2 caps daily and after doing this for about a week he had frequent bowel movements sometimes hard and sometimes loose with occasional accidents with most recent outpatient evaluation with his PCP 2 days prior with loose stools therefore he decreased back down to 1 cap of MiraLAX every other day but had worsened abdominal distention with poor appetite and sensation that he needed to have a bowel movement and felt constipated prompting his sister to bring him in for evaluation. Patient notes since his bowel movement in the ED he does feel better and feels less distended. Again talked at length with the sister and she feels uncomfortable taking him home because of these ongoing issues but did discuss that this may be a lifelong workup in the ED included T96.8, heart rate 95, BP 156/93, respiratory rate 16, 93% on 2 L nasal cannula, CBC with WC 7.0, hemoglobin 12.5, MCV 89.9, platelet 194 without marked shift, BMP with glucose 164 otherwise unremarkable, CT abdomen and pelvis with a large volume colorectal stool retention with marked colonic distention and rectal distention measuring up to approximately 8.8 cm transverse, splenic granulomas and mild splenomegaly with no focal splenic abnormality, mild car megaly increased pericardial effusion, pleural calcifications possibly secondary to asbestos related pleural disease and minimal basilar atelectasis, moderately distended fluid-filled loops of small bowel likely secondary to ileus. In the ED patient then had large bowel movement thus he was not disimpacted in the ED. [facility] Medical History (Updated 01/09/24 @ 00:[address] Dina Flanagan MD) Mood disorder Obesity Chewing tobacco use Former cigarette smoker Asthma COPD (chronic obstructive pulmonary disease) OCD (obsessive compulsive disorder) High cholesterol Autism Home Medications ?Medication ?Instructions ?Recorded ?Last Taken ?Type divalproex 500 mg tablet,extended 1,000 mg PO QHS mood 04/05/13 03/04/16 History release 24 hr divalproex 500 mg tablet,extended 500 mg PO DAILY@0800 mood 04/05/13 03/05/16 History release 24 hr docusate sodium 100 mg capsule 200 mg PO DAILY stool softener 04/05/13 03/05/16 History (DOK) gabapentin 300 mg capsule 300 mg PO BID pain 04/05/13 03/05/16 History loratadine 10 mg tablet (Allergy 10 mg PO DAILY allergy 04/05/13 03/05/16 History Relief (loratadine)) montelukast 10 mg tablet 10 mg PO QHS asthma 04/05/13 03/04/16 History vitamin E (dl, acetate) 180 mg 400 units PO BID supplement 04/05/13 03/05/16 History (400 unit) capsule bupropion HCl 150 mg 24 hr tablet, 150 mg PO DAILY mood 03/31/14 03/05/16 History extended release quetiapine 50 mg tablet (Seroquel) 150 mg PO QHS mood 03/05/16 03/05/16 History gabapentin 300 mg capsule 600 mg PO QHS pain 12/12/22 Unknown History benztropine 1 mg tablet 1 mg PO BID mood 01/08/24 Unknown History risperidone 1 mg tablet 2 mg PO BID 01/08/24 Unknown History Allergy/AdvReac Type Severity Reaction Status Date / Time No Known Allergies Allergy Verified 01/08/24 18:51 Family History (Updated 01/09/24 @ 00:[address] Dina Flanagan MD) Mother Heart disease Hypertension CAD (coronary artery disease) Myocardial infarction Father Heart disease Hypertension CAD (coronary artery disease) Myocardial infarction Surgical History (Updated 01/09/24 @ 00:[address] Dina Flanagan MD) S/P appendectomy Social History (Updated 01/09/24 @ 00:[address] Dina Flanagan MD) household members: family and other details: Lives with his sister (also guardian), prior was at detention. Smoking Status: Former smoker how long ago did patient quit smoking: Quit >2 ppd ~2 yrs prior, started in 20s. Transitioned to chew 1 can/day. alcohol intake: never substance use type: does not use ROS ROS Narrative Admission Review of Systems: CONSTITUTIONAL: No weight loss, fever, chills, + weakness or fatigue. HEENT: Eyes: No visual loss, blurred vision, double vision or yellow sclerae. Ears, Nose, Throat: No hearing loss, sneezing, congestion, runny nose or sore throat. SKIN: No rash or itching, lesions, wounds. CARDIOVASCULAR: No chest pain, chest pressure or chest discomfort, palpitations, edema, orthopnea, syncopal events. RESPIRATORY: No shortness of breath, cough or sputum, wheezing, hemoptysis. GASTROINTESTINAL: + anorexia, abdominal distention, abdominal discomfort. No nausea, vomiting, melena, BRBPR. GENITOURINARY: No dysuria, frequency, urgency or retention. NEUROLOGICAL: No headache, dizziness, syncope, paralysis, ataxia, numbness or tingling in the extremities, focal weakness, change in bowel or bladder control, seizure. MUSCULOSKELETAL: + muscle, back pain, joint pain or stiffness. HEMATOLOGIC: + Chronic anemia. No acute or history of bleeding or bruising. LYMPHATICS: No enlarged nodes. No history of splenectomy. PSYCHIATRIC: + Hx OCD/mood disorder/autism. ENDOCRINOLOGIC: No reports of sweating, cold or heat intolerance. No polyuria or polydipsia. ALLERGIES: + History of asthma. Vital Signs Vital Signs Vital Signs: 01/08/24 18:51 Temperature 96.8 F L Temperature Source Temporal Pulse Rate 95 Respiratory Rate 16 Blood Pressure 156/93 H Blood Pressure Mean 114 Pulse Ox 93 Oxygen Delivery Method Nasal Cannula Oxygen Flow Rate (L/min) 2 Physical Exam Narrative Physical Examination: General: Awake, alert, oriented x 3 and cooperative, seated upright in the ED bed in no apparent distress, notes bowel movements in the ED significantly improved his discomfort. Skin: Normal color, normal turgor, no icterus, no cyanosis except occasional staged ecchymoses, abrasion. HEENT: AT/NC, EOMI, PERRLA, dry MM, no carotid bruits or JVD noted; however, thickened neck makes evaluation difficult. Lungs: Mildly diminished, greater bases, appropriate effort no rales, ronchi or wheezing. Heart: Regular rate and rhythm; no gallop, rub audible. Abdomen: Soft, obese, mild generalized discomfort with palpation but no rebound or guarding, mildly tympanitic, difficult to assess distention and HSM given habitus. Extremities: No cyanosis, no clubbing, mild ankle not markedly pitting edema present. Neurological: Patient awake, alert, oriented as noted, cognitive function intact, confirmed per guardian; pupils equally reactive to light and accommodation, cranial nerves grossly normal, moving all 4 extremities, no focal deficits, strength mildly to moderately globally decreased secondary to acute complaints. Psychiatric: Affect appears mildly uncomfortable otherwise normal, no acute evidence of depressive or anxiety feelings but does have underlying significant psychiatric history with mood disorder/OCD/autism. Results Lab / Micro Data 01/08/24 19:39 01/08/24 19:39 Labs: Laboratory Results - last 24 hr 01/08/24 19:39: WBC 7.0, RBC 4.06 L, Hgb 12.5 L, Hct 36.5 L, MCV 89.9, MCH 30.8, MCHC 34.2, RDW Std Deviation 42.5, RDW Coeff of Dony 13.0, Plt Count 194, MPV 9.7, Immature Gran % (Auto) 0.600, Neut % (Auto) 64.4, Lymph % (Auto) 22.5, Rock % (Auto) 9.1, Eos % (Auto) 3.1, Baso % (Auto) 0.3, Absolute Neuts (auto) 4.5, Absolute Lymphs (auto) 1.58, Nucleated RBC % 0, Sodium 136, Potassium 4.2, Chloride 100, Carbon Dioxide 30.0, Anion Gap 6, BUN 14, Creatinine 0.79, Est GFR (MDRD) Af Amer 137, Est GFR (MDRD) Non-Af 113, BUN/Creatinine Ratio 17.8, G lucose 164 H, Calcium 8.7 Imaging Radiology Impression Abdomen/Pelvis CT 01/08/24 19:20 IMPRESSION: 1. Large volume colorectal stool retention with marked colonic distention and rectal distention measuring up to approximately 8.8 cm transverse. 2. Splenic granulomas and mild splenomegaly. No focal splenic abnormality. 3. Mild cardiomegaly and trace pericardial effusion. 4. 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 5. Moderately distended fluid-filled loops of small bowel likely secondary to ileus. Electronically Signed: Hipolito NorrislennyDO lashawn at 20:32 EDT , Assessment & Plan Assessment/Plan (1) Abdominal pain: (2) Constipation: PLAN: Plan The patient is a 43 y/o M w/ PMHx: Asthma/COPD w/ Allergic rhinitis, Chronic neuropathy, Mood disorder/OCD/Autism, Former cigarette tobacco use->chew tobacco use, HLD, HTN, Chronic constipation who presents to the [facility] ED on 01/08/24 with history of being brought in by his sister who who is his guardian with 1 month of ongoing abdominal issues specifically severe constipation with intractable pain. #1. Acute on chronic constipation with significant abdominal distention, intractable pain, ileus: Will admit to medical surgical floor given intractable discomfort and difficulty with caring for this patient at home given underlying mood disorder and autism per discussion with patient guardian his sister, will allow clear liquids, maintain on famotidine, initiate scheduled Bentyl, initiate bowel regimen aggressively with bowel prep and also overlap with enema x 1, continue to closely monitor and will need to initiate on diet once clinically appropriate and bowel movements ongoing and bowel regimen for discharge to prevent recurrence. #2. Mood disorder/OCD/autism: Will continue patient home Seroquel, benztropine, Depakote, bupropion as well as risperidone home regimen. #3. Chronic COPD/asthma with allergic rhinitis: Per current list not on chronic regimen, will continue patient home regimen, montelukast home regimen in addition to PRN albuterol, HOB, IS parameters. #4. Former tobacco cigarette usage transition to chew tobacco: Strongly encourage continued cigarette tobacco cessation but also encouraged to tobacco cessation, nicotine replacement if desired. #5. Hypertension: Noted history however BP normal range, not on any chronic regimen per list but clarifying, as needed IV hydralazine in interim. #6. Hyperlipidemia: Noted in history, not on any regimen, defer to outpatient. #7. Chronic neuropathy: We will continue patient home chronic gabapentin regimen. #8. Obesity: Weight loss and lifestyle changes encouraged. #9. DVT prophylaxis: Low risk for type of presentation. #10. CODE status: Patient guardian is his sister. Discussed CODE status at length including difference between FULL code, DNR-CCA and DNR-CC status. Following discussions about the differences in these status, requested Full Code status. Charges/Coding Visit Charges Inpatient E&M: 76022 Init Hosp L2
[2024-01-08 22:00] VITALS: BP 127/89; PULSE 78; RESP 18; O2SAT 96
[2024-01-08 22:57] VITALS: BP 133/94; PULSE 75; RESP 16; TEMP 36.4; O2SAT 99
[2024-01-08 23:41] VITALS: BMI 34.4
[2024-01-08 23:54] VITALS: BP 127/83; PULSE 64; RESP 18; TEMP 36.5; O2SAT 99
[2024-01-09] MEDS: RisperiDONE 1 MG Tablet 1.5 MG PO ×2 (00:31→09:13)
[2024-01-09] MEDS: Dicyclomine 10 MG Capsule 20 MG PO ×3 (00:31→12:05)
[2024-01-09] MEDS: QUEtiapine 100 MG Tablet 150 MG PO (00:32)
[2024-01-09] MEDS: Montelukast 10 MG Tablet PO (00:32)
[2024-01-09] MEDS: Divalproex (ER) 500 MG Tablet 1000 MG PO (00:33)
[2024-01-09] MEDS: Gabapentin 300 MG Capsule 600 MG PO (00:33)
[2024-01-09] MEDS: Benztropine 2 MG Tablet 1 MG PO ×2 (00:33→09:12)
[2024-01-09] MEDS: Famotidine 20 MG Tablet PO ×2 (00:33→09:12)
[2024-01-09] MEDS: 0.9% Saline Lock 10 ML Syringe IV (00:34)
[2024-01-09] MEDS: 0.9% Normal Saline (1000mL) 1,000 ML 100 ML IV (00:34)
[2024-01-09] MEDS: Fleet Enema 133 ML RC (00:35)
[2024-01-09] MEDS: Bisacodyl 5 MG Tablet 20 MG PO (01:10)
[2024-01-09] MEDS: Polyethylene Glycol 3350 BOWEL PREP PO (02:52)
[2024-01-09 06:09] LABS: Absolute Lymphocyte Count 2.06 X10^3/uL (0.83-4.51); Absolute Neutrophil Count 2.9 X10^3/uL (2.0-7.7); Basophil# 0.02 X10^3/uL; Basophil% 0.3 % (0-1); Eosinophil# 0.21 X10^3/uL; Eosinophils% 3.6 % (0-5); Hematocrit 37.6 % (40-54); Hemoglobin 12.5 g/dL (13.0-16.5); Lymphocyte # 2.06 X10^3/ul (0.83-4.51); Lymphocyte % 35.6 % (19-41); Mean Corp Hgb Conc 33.2 g/dL (32-36); Mean Corpuscular Hgb 30.3 pg (27.0-32.0); Mean Corpuscular Volume 91.3 fL (80-94); Mean Platelet Vol. 10.7 fl (6.2-12.0); Monocyte# 0.58 X10^3/uL; NRBC Flagged by Analyzer 0 % (0-5); Neutrophil # 2.88 X10^3/uL (2.7-7.7); Neutrophil % 49.8 % (47-70); Platelet Count 169 K/mm3 (150-450); RBC Distribution Width SD 43.2 fl (35.1-43.9); Red Blood Count 4.12 M/mm3 (4.6-6.2); White Blood Count 5.8 K/mm3 (4.4-11.0)
[2024-01-09 07:10] LABS: ALB/GLOB Ratio 0.9 RATIO (0.9-2.4); AST(SGOT) 31 U/L (15-37); Alanine Aminotransfer ALT/SGPT 39 U/L (16-61); Albumin, Serum 3.1 g/dL (3.2-5.0); Alkaline Phosphatase 98 U/L (45-117); Anion Gap 4 (5-15); BUN 11 mg/dL (7-18); BUN/Creat Ratio 18.1 RATIO (10-20); Calcium,Total 9.1 mg/dL (8.5-10.1); Chloride 103 mmol/L (98-107); Creatinine, Serum 0.61 mg/dL (0.70-1.30); EST Glomerular Filtration Rate 152 mL/min (>60); Est Glom Filt Rate - Afr Amer 184 mL/min (>60); Estimated Creatinine Clearance 194.54 ml/min; Globulin 3.3 g/dL (2.2-4.2); Glucose 86 mg/dL (74-106); Potassium 4.1 mmol/L (3.5-5.1); Protein, Total 6.4 g/dL (6.4-8.2); Sodium Level 136 mmol/L (136-145)
[2024-01-09 07:37] VITALS: PULSE 66; RESP 18
[2024-01-09] MEDS: Budesonide Respules 0.5 MG/2 ML AMPUL.NEB. INHALATION (07:37)
[2024-01-09] MEDS: Gabapentin 300 MG Capsule PO (09:09)
[2024-01-09] MEDS: buPROPion (XL) 150 MG TABLET.XL PO (09:11)
[2024-01-09] MEDS: Ascorbic Acid 500 MG Tablet 1000 MG PO (09:11)
[2024-01-09] MEDS: Loratadine 10 MG Tablet PO (09:12)
[2024-01-09] MEDS: Divalproex (ER) 500 MG Tablet PO (09:14)
[2024-01-09 09:35] VITALS: BP 114/62; PULSE 64; RESP 19; TEMP 36.4; O2SAT 95
--- NOTE | 2024-01-09 12:50 | PCM.DC ---
Discharge Instructions Diet Discharge Diet: No restrictions Activity Discharge Activity: Return to Normal Activity Weight Bearing Status: Full weight bearing Follow Up Care Test Results: Test results from this visit will be discussed in further detail at your follow-up appointment, if applicable. Discharge Plan Admission Admit Date/Time: 01/08/24 21:51 Primary Reason for Your Visit: constipation Attending Provider: Leroy Dukes Primary Care Provider: Leroy George Consulting Providers: Dina Flanagan Discharge Orders/Prescriptions Prescriptions: New ascorbic acid (vitamin C) 500 mg Tablet 1,000 mg PO DAILY@0800 Qty: 0 0RF lactulose 20 gram/30 mL solution 20 g PO BID Qty: 32 0RF Rx Instructions: 20 grams once a day starting out, may increase to 20 grams twice daily if needed Continued divalproex 500 MG tablet 500 mg PO DAILY@0800 docusate sodium [DOK] 100 MG capsule 200 mg PO DAILY montelukast 10 MG tablet 10 mg PO QHS loratadine [Allergy Relief (loratadine)] 10 MG tablet 10 mg PO DAILY vitamin E (dl, acetate) 400 UNITS capsule 400 units PO BID divalproex 500 MG tablet 1,000 mg PO QHS gabapentin 300 MG capsule 300 mg PO 0800,1400 bupropion HCl 150 MG tablet extended release 24 hr 150 mg PO DAILY quetiapine [Seroquel] 50 MG tablet 150 mg PO QHS gabapentin 300 mg Capsule 600 mg PO QHS benztropine 1 mg tablet 1 mg PO BID risperidone 1 mg tablet 2 mg PO BID Referrals / Follow Up: Leroy George MD [Primary Care Provider] - Disposition Disposition (needs filled in before D/C Order can be placed): Home, Self Care
--- NOTE | 2024-01-09 13:12 | PCM.DC.SUM ---
Providers Date of Admission: 01/08/24 Date of Discharge: 01/09/24 Primary Care Physician: Dr. Leroy George MD Reason For Visit: INTRACTABLE ABDOMINAL PAIN ILEUS CONSTIPATION Diagnosis Discharge Diagnosis (1) Abdominal pain: Status: Acute Code(s): R10.9 - Unspecified abdominal pain (2) Constipation: Status: Acute Code(s): K59.00 - Constipation, unspecified Plan 1. Acute on chronic constipation with abdominal discomfort #2 autism/mood disorder #3 chronic COPD Medications at Discharge Home Medications divalproex 500 mg tablet,extended release 24 hr 1,000 mg PO QHS mood 04/05/13 divalproex 500 mg tablet,extended release 24 hr 500 mg PO DAILY@0800 mood 04/05/13 docusate sodium 100 mg capsule (DOK) 200 mg PO DAILY stool softener 04/05/13 gabapentin 300 mg capsule 300 mg PO 0800,1400 pain 04/05/13 loratadine 10 mg tablet (Allergy Relief (loratadine)) 10 mg PO DAILY allergy 04/05/13 montelukast 10 mg tablet 10 mg PO QHS asthma 04/05/13 vitamin E (dl, acetate) 180 mg (400 unit) capsule 400 units PO BID supplement 04/05/13 bupropion HCl 150 mg 24 hr tablet, extended release 150 mg PO DAILY mood 03/31/14 quetiapine 50 mg tablet (Seroquel) 150 mg PO QHS mood 03/05/16 gabapentin 300 mg capsule 600 mg PO QHS pain 12/12/22 benztropine 1 mg tablet 1 mg PO BID mood 01/08/24 risperidone 1 mg tablet 2 mg PO BID 01/08/24 ascorbic acid (vitamin C) 500 mg tablet 1,000 mg (2 x 500 mg) PO DAILY@0800 #0 tabs 01/09/24 lactulose 20 gram/30 mL oral solution 20 g (0.7055 x 20 gram/30 mL) PO BID #32 oz 01/09/24 Hospital Course Operations None Procedures None Summary of Care Provided Minutes Spent on Discharge: 30 Hospital Course: This 43-year-old white male with a history of autism and mood disorder as well as chronic constipation was seen in the emergency room at [facility] with complaints of generalized abdominal pain, x-rays revealed a large amount of stool in the colon. Patient was placed in observation status on [facility] 3 and given a MiraLAX prep, patient had good results from this and his abdominal pain resolved. On 01/09/2024, patient was seen and examined: On examination he appeared in good health and spirits, patient had cognitive impairment. Vital signs as documented. Skin warm and dry and without overt rashes. Neck without JVD, neck was supple, trachea midline, thyroid was normal. Lungs clear bilaterally, normal air movement was noted. Heart exam notable for regular rhythm, normal sounds and absence of murmurs, rubs or gallops. Abdomen unremarkable and without evidence of organomegaly, masses, or abdominal aortic enlargement. Bowel sounds are present, abdomen is not distended. Extremities nonedematous, no cyanosis was noted, no clubbing was noted. Neuro: Cranial nerves II through XII are grossly intact, no focal motor deficits were noted, sensation to light touch and pinprick intact, motor exam 5/5 throughout. Psych: Patient is alert, he was oriented as to self, he had evidence of some cognitive impairment. On 01/09/2024, patient was discharged home in stable condition Weight / BMI Weight Weight: 111.9 kg Body Mass Index (BMI) 34.4 ABG / Lab / Microbiology Data 01/09/24 05:10 01/09/24 05:10 Laboratory: Laboratory Results - last 24 hr 01/08/24 19:39: WBC 7.0, RBC 4.06 L, Hgb 12.5 L, Hct 36.5 L, MCV 89.9, MCH 30.8, MCHC 34.2, RDW Std Deviation 42.5, RDW Coeff of Dony 13.0, Plt Count 194, MPV 9.7, Immature Gran % (Auto) 0.600, Neut % (Auto) 64.4, Lymph % (Auto) 22.5, [place] % (Auto) 9.1, Eos % (Auto) 3.1, Baso % (Auto) 0.3, Absolute Neuts (auto) 4.5, Absolute Lymphs (auto) 1.58, Nucleated RBC % 0, Sodium 136, Potassium 4.2, Chloride 100, Carbon Dioxide 30.0, Anion Gap 6, BUN 14, Creatinine 0.79, Est GFR (MDRD) Af Amer 137, Est GFR (MDRD) Non-Af 113, BUN/Creatinine Ratio 17.8, Glucose 164 H, Calcium 8.7 01/09/24 05:10: WBC 5.8, RBC 4.12 L, Hgb 12.5 L, Hct 37.6 L, MCV 91.3, MCH 30.3, MCHC 33.2, RDW Std Deviation 43.2, RDW Coeff of Dony 13.0, Plt Count 169, MPV 10.7, Immature Gran % (Auto) 0.700, Neut % (Auto) 49.8, Lymph % (Auto) 35.6, [place] % (Auto) 10.0, Eos % (Auto) 3.6, Baso % (Auto) 0.3, Absolute Neuts (auto) 2.9, Absolute Lymphs (auto) 2.06, Nucleated RBC % 0, Sodium 136, Potassium 4.1, Chloride 103, Carbon Dioxide 29.0, Anion Gap 4 L, BUN 11, Creatinine 0.61 L, Estim Creat Clear Calc 194.54, Est GFR (MDRD) Af Amer 184, Est GFR (MDRD) Non-Af 152, BUN/Creatinine Ratio 18.1, Glucose 86, Calcium 9.1, Total Bilirubin 0.30, AST 31, ALT 39, Alkaline Phosphatase 98, Total Protein 6.4, Albumin 3.1 L, Globulin 3.3, Albumin/Globulin Ratio 0.9 Radiography Diagnostic Testing: Radiology Impression Abdomen/Pelvis CT 01/08/24 19:20 IMPRESSION: 1. Large volume colorectal stool retention with marked colonic distention and rectal distention measuring up to approximately 8.8 cm transverse. 2. Splenic granulomas and mild splenomegaly. No focal splenic abnormality. 3. Mild cardiomegaly and trace pericardial effusion. 4. 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 5. Moderately distended fluid-filled loops of small bowel likely secondary to ileus. Electronically Signed: Hipolito Nicolas DO at 20:32 EDT , D/C Instructions Discharge Diet: No restrictions Weight Bearing Status: Full weight bearing Meaningful Use Info Meaningful Use Meaningful Use Diagnoses (Choose all that apply): None applicable Ischemic Stroke Statin Dosing Therapy Reference: STATIN DOSE THERAPY REFERENCE: * Patients > 75 years receive moderate or high dose statin therapy. * Patients 75 years or YOUNGER should receive HIGH intensity statin dose unless contraindicated. You will be required to document reason for non-treatment if statin daily dose does not meet guidelines. HIGH DOSE STATIN THERAPY DAILY Atorvastatin > than or = to 40 mg Rosuvastatin > than or = to 20 mg Amlodipine + Atorvastatin > than or = to 2.5/40 mg Ezetimibe + Simvastatin 10/80 mg Simvastatin 80mg Discharge Plan Admission Admit Date/Time: 01/08/24 21:51 Primary Reason for Your Visit: constipation Attending Provider: Leroy Dukes Primary Care Provider: Leroy George Consulting Providers: Dina Flanagan Discharge Orders/Prescriptions Prescriptions: New ascorbic acid (vitamin C) 500 mg Tablet 1,000 mg PO DAILY@0800 Qty: 0 0RF lactulose 20 gram/30 mL solution 20 g PO BID Qty: 32 0RF Rx Instructions: 20 grams once a day starting out, may increase to 20 grams twice daily if needed Continued divalproex 500 MG tablet 500 mg PO DAILY@0800 docusate sodium [DOK] 100 MG capsule 200 mg PO DAILY montelukast 10 MG tablet 10 mg PO QHS loratadine [Allergy Relief (loratadine)] 10 MG tablet 10 mg PO DAILY vitamin E (dl, acetate) 400 UNITS capsule 400 units PO BID divalproex 500 MG tablet 1,000 mg PO QHS gabapentin 300 MG capsule 300 mg PO 0800,1400 bupropion HCl 150 MG tablet extended release 24 hr 150 mg PO DAILY quetiapine [Seroquel] 50 MG tablet 150 mg PO QHS gabapentin 300 mg Capsule 600 mg PO QHS benztropine 1 mg tablet 1 mg PO BID risperidone 1 mg tablet 2 mg PO BID Referrals / Follow Up: Leroy George MD [Primary Care Provider] - Disposition Disposition (needs filled in before D/C Order can be placed): Home, Self Care Charges/Coding Visit Charges Inpatient E&M: 57152 Disch Hosp
--- NOTE | 2024-01-09 13:33 | CASEMGMT ---
Pt has an order for DC placed. This RN CM to pt room at this time. Pt states that his sister will be picking him up from the hospital today. Pt states that his sister helps him out at home. Pt refuses the need for HHC or OP therapy needs. Pt denies any further questions or concerns and is ready for DC home today with his sister.
--- NOTE | 2024-01-09 13:53 | PHA.DC.MR.R ---
[facility] has performed discharge medication reconciliation for this patient. The patient's discharge medication list was reviewed for discrepancies and discrepancies were resolved. Medications at Discharge Home Medications divalproex 500 mg tablet,extended release 24 hr 1,000 mg PO QHS mood 04/05/13 divalproex 500 mg tablet,extended release 24 hr 500 mg PO DAILY@0800 mood 04/05/13 docusate sodium 100 mg capsule (DOK) 200 mg PO DAILY stool softener 04/05/13 gabapentin 300 mg capsule 300 mg PO 0800,1400 pain 04/05/13 loratadine 10 mg tablet (Allergy Relief (loratadine)) 10 mg PO DAILY allergy 04/05/13 montelukast 10 mg tablet 10 mg PO QHS asthma 04/05/13 vitamin E (dl, acetate) 180 mg (400 unit) capsule 400 units PO BID supplement 04/05/13 bupropion HCl 150 mg 24 hr tablet, extended release 150 mg PO DAILY mood 03/31/14 quetiapine 50 mg tablet (Seroquel) 150 mg PO QHS mood 03/05/16 gabapentin 300 mg capsule 600 mg PO QHS pain 12/12/22 benztropine 1 mg tablet 1 mg PO BID mood 01/08/24 risperidone 1 mg tablet 2 mg PO BID 01/08/24 ascorbic acid (vitamin C) 500 mg tablet 1,000 mg (2 x 500 mg) PO DAILY@0800 #0 tabs 01/09/24 lactulose 20 gram/30 mL oral solution 20 g (0.7055 x 20 gram/30 mL) PO BID #32 oz 01/09/24
== END 2024-01-09 14:02 | disposition home or self-care (01) ==
LOC: ED 21:10 → MS3 22:25
PROVIDERS: Physician Assistant; Admitting Provider Family Medicine; Emergency Provider Emergency Medicine; PCP Family Medicine; Visit Provider Internal Medicine
DX: K59.09 Other constipation (principal); J44.89 Other specified chronic obstructive pulmonary disease; F84.0 Autistic disorder; F42.9 Obsessive-compulsive disorder, unspecified; I10 Essential (primary) hypertension; E78.00 Pure hypercholesterolemia, unspecified; F17.220 Nicotine dependence, chewing tobacco, uncomplicated; Z79.899 Other long term (current) drug therapy; E66.9 Obesity, unspecified; G62.9 Polyneuropathy, unspecified; Z68.34 Body mass index [BMI] 34.0-34.9, adult
CPT/HCPCS: 36415; 74177; 80048; 80053; 85025; 94640; 96360; 96361; 99221; 99284; 99406; J7030; Q9967; A4216; G0378

== ENCOUNTER → 2024-01-16 | Outpatient (CLI) | payer MEDICAID, SELFPAY ==
[2024-01-16 15:20] LABS: Erythrocyte Sedimentation Rate 1 mm/hr (0-20)
[2024-01-16 16:08] LABS: AST(SGOT) 23 U/L (15-37); Alanine Aminotransfer ALT/SGPT 33 U/L (16-61); Albumin, Serum 3.8 g/dL (3.2-5.0); Alkaline Phosphatase 97 U/L (45-117); Anion Gap 5 (5-15); BUN 9 mg/dL (7-18); CRP < 2.90 mg/L (0.0-3.0); Calcium,Total 9.5 mg/dL (8.5-10.1); Chloride 98 mmol/L (98-107); Creatinine, Serum 0.64 mg/dL (0.70-1.30); EST Glomerular Filtration Rate 143 mL/min (>60); Est Glom Filt Rate - Afr Amer 173 mL/min (>60); Globulin 3.7 g/dL (2.2-4.2); Glucose 92 mg/dL (74-106); Potassium 4.4 mmol/L (3.5-5.1); Protein, Total 7.5 g/dL (6.4-8.2); Sodium Level 135 mmol/L (136-145); Thyroid Stim Hormone (TSH) 3.53 uIU/mL (0.358-3.74)
[2024-01-19 13:07] LABS: Endomysial Antibody IgA Negative (Negative); Immunoglobulin A 161 mg/dL (90-386); t-Transglutaminase IgA <2 U/mL (0-3)
[2024-01-22 08:13] LABS: Beef <0.10 kU/L (Class 0); Chocolate <0.10 kU/L (Class 0); Codfish <0.10 kU/L (Class 0); Corn <0.10 kU/L (Class 0); Egg, Whole <0.10 kU/L (Class 0); Milk (Cow) <0.10 kU/L (Class 0); Mussels <0.10 kU/L (Class 0); Peanut <0.10 kU/L (Class 0); Pork <0.10 kU/L (Class 0); Salmon <0.10 kU/L (Class 0); Shrimp <0.10 kU/L (Class 0); Soybean <0.10 kU/L (Class 0); Tuna <0.10 kU/L (Class 0); Wheat <0.10 kU/L (Class 0)
== END | disposition home or self-care (01) ==
LOC: LAB 14:01
PROVIDERS: PCP Family Medicine; Referring Provider Student in an Organized Health Care Education/Training Program; Visit Provider Student in an Organized Health Care Education/Training Program
DX: R10.9 Unspecified abdominal pain (principal); K59.00 Constipation, unspecified
CPT/HCPCS: 36415; 80053; 82784; 83516; 84443; 85652; 86003; 86005; 86140; 86255

== ENCOUNTER 2024-01-29 09:40 | Day surgery (SDC) | payer MEDICAID, SELFPAY ==
[2024-01-29] VITALS (7 sets, daily range): BP systolic 115–133; BP diastolic 64–73; PULSE 55–68; RESP 16–18; TEMP 35.8–36.6; O2SAT 93–98; BMI 45.1
--- NOTE | 2024-01-29 09:56 | PCM.HP.BLA ---
History and Physical Date of Admission: 01/29/24 ELIAS LOPEZ, is a 43 M who presents to the office today for hospital f/u for constipation. He was recently hospitalized 01/08/24-01/09/24 for abdominal pain and constipation. CT 01/08/24 showed large volume colorectal stool retention with marked colonic distension and rectal distention measuring up to approximately 8.8 cm transverse and moderately distended fluid filled loops of small bowel likely secondary to ileus. In the hospital he was given MiraLAx prep with good results and his pain resolved. Today he is here with his caregiver who gives most of the history. She says he does have a history of constipation but it has become worse over the past couple of months. She has only been his caregiver for 2 years. She is unsure if he is actually constipated or if he is choosing to hold his stool in. Prior to being hospitalized he took Colace everyday. He is now taking Colace every day and miralax every other day. He endorses also having diarrhea and accidents. She is unsure if these accidents are behavioral in nature. It is difficult for her to assess how he is doing as he only tells her he is having trouble when he is severely constipated. He denies nausea, vomiting, melena or hematemesis. He has never had a colonoscopy. There have been no major changes in his life besides increasing his risperidone .5 mg. He has been on the same medications for years. He lives a sedentary life and his caregiver encourages him to move. Caregiver mentions that he often chokes on liquid and solids. He denies odynophagia. He occasionally gets heartburn which is tolerable to him. He has never had an EGD. ROS Const Constitutional: No fatigue, fever(s) or weight change ENT ENT: Positive for difficulty swallowing Gastro GI: Positive for abdominal pain, bloating, change in bowel habits, constipation, diarrhea, heartburn, difficulty swallowing and excessive flatus; No belching, change in stool character, coffee ground emesis, cramping, feeling full early, incontinent of stools, Vomiting blood/hematemesis, Blood in stool, loose stools, Black,tarry stools, nausea/dyspepsia, pain with swallowing, vomiting or other Musc Musculoskeletal: Positive for joint swelling and stiffness; No joint pain Skin Skin: No yellowing of the eye or itchy eyes Neuro Neurology: Positive for behavioral changes Psych Psychiatric: Positive for lack of enjoyment, Positive for anxiety, Positive for behavioral changes, No depression, Positive for Behavioral Problems and Positive for obsessions/compulsions Endo Endocrine: No fatigue or weight change Aller/Imm Allergy/Immunologic: No itchy eyes Joao/Lymp Hematologic/Lymphatic: No easy bleeding or easy bruising Exam Const General: cooperative and comfortable Nutritional Appearance: average body habitus and well nourished HENMT Head: normal to inspection Ears: hearing grossly normal bilaterally Nose: external nose normal Face and sinus: normal facial exam Mouth: oral mucosae normal Throat: posterior oropharynx normal Eyes General: appearance normal, both eyes and all related structures Neck Neck: normal visual inspection Chest Chest palpation & inspection: normal inspection of the chest and normal palpation of entire chest wall Resp Effort & Inspection: normal respiratory effort Auscultation: Bilateral: Clear to Auscultation Cardio Palpation: normal PMI Rate: regular rate Rhythm: regular rhythm GI Inspection: normal to inspection Auscultation: normal bowel sounds Percussion: normal to percussion Palpation: no hepatosplenomegaly Skin General: no rashes or lesions noted Neuro General: patient alert Extrem General: normal to inspection Psych Affect: normal affect Assessment and Plan Assessment and Plan (1) Abdominal pain: Status: Acute (2) Constipation: Status: Acute (3) Dysphagia: Status: Acute Orders: Orders Allergen, Food Profile 14 Today K59.00 - Constipation, unspecified, R10.9 - Unspecified abdominal pain Celiac Disease Profile Today K59.00 - Constipation, unspecified, R10.9 - Unspecified abdominal pain Thyroid Stim Hormone (TSH) Today K59.00 - Constipation, unspecified, R10.9 - Unspecified abdominal pain Comprehensive Metabolic Profil Today K59.00 - Constipation, unspecified, R10.9 - Unspecified abdominal pain CRP Today K59.00 - Constipation, unspecified, R10.9 - Unspecified abdominal pain Erythrocyte Sed Rate Today R10.9 - Unspecified abdominal pain Medications: New peg 3350-electrolytes 236-22.74-6.74 -5.86 gram (Golytely) until fecal effluent is clear 240 mL PO Q10M 4,000 mL 0RF Plan -Patient was recently hospitalized for severe constipation with colonic dilation to 8.8 cm. Differential diagnosis for constipation include slow transit constipation, medication side effect, behavioral, food allergens or celiac disease. -We will start work up with colonoscopy to look for structural etiology of constipation. He complains of dysphagia so we will get EGD as well -He will continue to take Colace daily and will start taking miralax daily. He will focus on adding more fiber to his diet and getting daily exercise. -He has never been tested for food allergens, celiac, or IBD. We will start with ordering these labs -Will consider ordering sitz marker test in the future -His caregiver will keep us updated on his progress I have examined the patient and the H&P has been reviewed. There are no clinical changes since date of exam.
[2024-01-29] MEDS: Lactated Ringers 1,000 ML 15 ML IV (10:05)
--- NOTE | 2024-01-29 10:30 | IMM_PTH ---
PATIENT: ELIAS LOPEZ LOC: [facility] U#:[id number] AGE/SX: 43/M ROOM: RE01/29/[address]: Dr. Huber Villafuerte DO : 1980 BED: DIS: 01/29/2024 SPEC #: [id number] RECD: 01/29/24 13:38 STATUS: JUJU REJo Ann #: [id number] BRADEN: 01/29/24 10:[address]: Huber Villafuerte DEPT: IMMUNOHISTOCHEMISTRY RECD BY: Silvio Thompson ENTERED: 01/29/24 13:38 SP TYPE: IMMUNO OTHR DR: Dr. Leroy George MD Tissues: A - Gastric mucous membrane Procedures: H Pylori (initial) PHYSICIAN & INSTITUTION [place] [id number] SPECIMEN INFORMATION: Tissue Source: A- Gastric body biopsy Clinical Info: Abdominal pain, constipation, dysphagia Specimen Number: [id number] CPT code: 44332 METHODOLOGY: Deparaffinized sections of prefer/formalin-fixed tissue or PAP/DQ stained slides are incubated with monoclonal/polyclonal antibodies/oligonucleotide probes. Localization is made via biotin free immunoperoxidase method. Appropriate controls are performed and reacted as expected. Results on target cell population are indicated in the following table: RESULTS: ANTIBODY / CLONE RESULT Block A H Pylori (polyclonal) negative These tests were developed and their performance characteristics determined by [facility]. They may not have been cleared or approved by the U.S. Food and Drug Administration. The FDA has determined that such clearance or approval is not necessary. The above immunohistochemical/dualISH markers are ordered and reviewed by the Pathologist. INTERPRETATION: A. Gastric body, biopsy: Negative for Helicobacter pylori organisms. FRANKIE/ 01/30/2024
--- NOTE | 2024-01-29 10:30 | EGD_PTH ---
PATIENT: ELIAS LOPEZ LOC: [facility] U#:[id number] AGE/SX: 43/M ROOM: RE01/29/[address]: Dr. Huber Villafuerte DO : 1980 BED: DIS: 01/29/2024 SPEC #: [id number] RECD: 01/29/24 12:34 STATUS: JUJU MERT #: [id number] BRADEN: 01/29/24 10:[address]: Huber Villafuerte DEPT: SURGICAL PATHOLOGY RECD BY: Krystle Chaidez ENTERED: 01/29/24 13:16 SP TYPE: EGD BIOPSY KARO DR: Dr. Leroy George MD Tissues: Gastric mucous membrane Procedures: Surgery Specimen Level IV HEADER OPERATION: Colonoscopy with cold snare and biopsy, EGD with biopsy PRE-OP DIAGNOSIS: Abdominal pain, constipation, dysphagia TISSUE SUBMITTED: A- Gastric body biopsy, B- Hepatic flexure polyp x2, C- Terminal ileum biopsy MICROSCOPIC DIAGNOSIS A. Gastric body, biopsy: Mild chronic gastritis. See comment. B. Colonic polyp at hepatic flexure, biopsy: A fragment of benign colonic mucosa. See comment. C. Terminal ileum, biopsy: No pathologic change. AM/ 01/30/2024 COMMENT A. The results of immunohistochemistry for Helicobacter pylori will be reported separately ([id number]). B. Neither hyperplastic nor adenomatous change is identified. Clinical correlation is suggested. MICROSCOPIC DESCRIPTION Slides are reviewed. GROSS DESCRIPTION A. Received in fixative is one container labeled with the patient's name and designated Gastric body biopsy. The specimen consists of multiple irregular fragments of light cordoba soft tissue that in aggregate measure 2.0 x 0.2 x 0.1 cm. The specimen is totally submitted in one cassette. B. Received in fixative is one container labeled with the patient's name and designated Hepatic flexure polyp x2. The specimen consists of two irregular fragments of light cordoba soft tissue that in aggregate measure 0.2 x 0.1 x 0.1 cm. The specimen is totally submitted in one cassette. C. Received in fixative is one container labeled with the patient's name and designated Terminal ileum biopsy. The specimen consists of two irregular fragments of light cordoba soft tissue that in aggregate measure 0.6 x 0.3 x 0.1 cm. The specimen is totally submitted in one cassette. Eliecer 01/29/2024 TC:3 CPT:05347f3
--- NOTE | 2024-01-29 10:31 | PCM.PRE.AN2 ---
ASA Classification* ASA Classification ASA Classification: 3 Assessment & Plan Anesthesia* Anesthesia Assessment Anesthesia Assessment: Discussed sedation and/or anesthesia options, risks, benefits, and alternatives with patient/parents/legal guardian/POA. Questions invited. The patient/parents/legal guardian/POA seems to understand and agrees to proceed with anesthesia plan. Reviewed the physical assessment, medical history, allergy history and patient home medications list prior to surgery/procedure/anesthetic and documented any changes. Performed airway and anesthesia risk assessments. Anesthesia Type Anesthesia Type: MAC (see written pre anesthesia record for full assessment) Anesthesia Focused Assessment* Temperature: 97.8 F Pulse Rate: 55 Blood Pressure: 133/71 Respiratory Rate: 18 Pulse Ox: 95 Airway Assessment Mouth opens: >3 cm Mallampati Score: II Focused Labs Anesthesia Preop lab: CBC WBC 5.8 K/mm3 (4.4-11.0) 01/09/24 05:10 RBC 4.12 M/mm3 (4.6-6.2) L 01/09/24 05:10 Hgb 12.5 g/dL (13.0-16.5) L 01/09/24 05:10 Hct 37.6 % (40-54) L 01/09/24 05:10 Plt Count 169 K/mm3 (150-450) 01/09/24 05:10 CHEMISTRY Potassium 4.4 mmol/L (3.5-5.1) 01/16/24 14:09 Sodium 135 mmol/L (136-145) L 01/16/24 14:09 BUN 9 mg/dL (7-18) 01/16/24 14:09 Creatinine 0.64 mg/dL (0.70-1.30) L 01/16/24 14:09 Glucose 92 mg/dL (74-106) 01/16/24 14:09 TSH 3.53 uIU/mL (0.358-3.74) 01/16/24 14:09 COAG PT 13.8 SECONDS (11.7-14.9) 12/12/22 00:55 Pre-Assessment Diagnosis/Proposed Procedure Planned Operative Procedure(s): COLONSCOPY AND EGD Anesthesia History Anesthesia History - collaborating supervising physician: Anesthesia History - collaborating supervising physician Hx Hospitalization Yes: CONSTIPATION 12/202301/26/24 08:30 Any Problems With Anesthesia No 01/26/24 08:30 Cholinesterase deficiency No 01/26/24 08:30 You/Your Family Experience No 04/07/13 11:24 fever (hyperthermia) with Relationship Recent Exposure to Contagious No 01/29/24 10:05 Disease Does patient have nerve No 01/26/24 08:30 stimulator Patient instructed to have device shut off --Does patient have Pacemaker or ICD? When Was Last Pacemaker Check QUESTION #4 FULL TEXT: You/Your Family Experience fever (hyperthermia) with Anesthesia Last Oral Intake Last Oral intake: Last Oral Intake NPO since 22:00 01/29/24 10:05 Meds taken in AM with sips of water? Meds patient instructed to take am of surgery PONV PONV - collaborating supervising physician: PONV - collaborating supervising physician Female No 01/26/24 08:30 HX of Motion Sickness No 01/26/24 08:30 HX of N/V After Surgery No 01/26/24 08:30 Non-Smoker No 01/26/24 08:30 Duration of Surgery greater No 01/26/24 08:30 than 60 minutes Number of Risk Factors PONV Score Height & Weight Height & Weight: Anesthesia: Height & Weight Height 5 ft 01/29/24 10:05 Weight: 104.8 kg 01/29/24 10:05 Body Mass Index (BMI) 45.1 01/29/24 10:05 Respiratory Assessment Respiratory Assessment - collaborating supervising physician: Respiratory Tract Infection Hx - collaborating supervising physician Hx Respiratory Tract Infection No 01/26/24 08:30 STOP Sleep Apnea STOP Sleep Apnea - collaborating supervising physician: STOP Sleep Apnea - collaborating supervising physician Hx Hypertension No 01/26/24 08:30 Hx Sleep Apnea No 01/26/24 08:30 CPAP No 04/07/13 13:11 BIPAP No 04/07/13 11:24 Do you snore loudly (louder Yes 01/26/24 08:30 than talking or can be heard Do you often feel tired/ No 01/26/24 08:30 fatigued/ sleepy during daytime? Has anyone observed you stop No 01/26/24 08:30 breathing during sleep? STOP Results Negative 01/26/24 08:30 QUESTION #5 FULL TEXT : Do you snore loudly (louder than talking or can be heard through closed doors)? Tobacco Use History Tobacco Use History - collaborating supervising physician: Tobacco Use History - collaborating supervising physician Tobacco Use Smoking Status Former smoker 01/26/24 08:30 Hx Tobacco Use Yes 01/26/24 08:30 Years Smoking 10 01/26/24 08:30 Packs Smoked per Day Smoking Cessation Date was Yes - quit smoking within 15 01/26/24 08:30 within the last 15 years years Hx Smoking Cessation Date 06/30/21 01/26/24 08:30 Hx Smoking Cessation Counseling Hematologic Medial History Hematologic Hx - collaborating supervising physician: Hematologic Medical Hx - documentation specialist Hx of Blood Transfusion No 01/26/24 08:30 Hx of Transfusion in last 3 No 01/26/24 08:30 Months Date of Last Transfusion (if within last 3 months) Ever experience any problems No 01/26/24 08:30 with transfusion(s)? Specify any problems Hx of Preganancy in last 3 N/A 01/26/24 08:30 Months [facility] 01/26/24 08:30 & Questions: Date: 01/26/24 01/26/24 08:30 Time: 08:34 01/26/24 08:30 Patient unable to answer at this time (ie. confused, unrespo /Reproduction History /Reproductive History - collaborating supervising physician: /Reproductive Hx- collaborating supervising physician Hx Now No 01/26/24 08:30 Gestational Age (in weeks): EDC: Hx Hx Para Hx Section SAB No 01/26/24 08:30 Active Medications Active Medications: Current Medications Generic Name Dose Route Start Last Admin Trade Name Freq PRN Reason Stop Dose Admin Lactated Ringer's 1,000 mls @ 15 mls/hr 01/29/24 09:45 01/29/24 10:05 IV 15 mls/hr .Q48H ELIZABETH Administration PFSH Medical History Wears glasses Depression Anxiety Open wound Abrasion Blackout Syncope Heartburn Gastric reflux Former smoker On home oxygen therapy Hoarseness Shortness of breath on exertion Chronic cough Mood disorder Obesity Chewing tobacco use Former cigarette smoker Asthma OCD (obsessive compulsive disorder) High cholesterol Autism Home Medications ?Medication ?Instructions ?Recorded ?Last Taken ?Type divalproex 500 mg tablet,extended 1,000 mg PO QHS mood 10/07/13 08/01/24 07:00 History release 24 hr divalproex 500 mg tablet,extended 500 mg PO DAILY@0800 mood 04/05/13 03/05/16 History release 24 hr docusate sodium 100 mg capsule 400 mg PO DAILY stool softener 04/05/13 03/05/16 History (DOK) gabapentin 300 mg capsule 300 mg PO 0800,1400 pain 04/05/13 01/29/24 07:00 History loratadine 10 mg tablet (Allergy 10 mg PO DAILY allergy 04/05/13 03/05/16 History Relief (loratadine)) montelukast 10 mg tablet 10 mg PO QHS asthma 04/05/13 03/04/16 History vitamin E (dl, acetate) 180 mg 400 units PO BID supplement 04/05/13 03/05/16 History (400 unit) capsule bupropion HCl 150 mg 24 hr tablet, 150 mg PO DAILY mood 03/31/14 01/29/24 07:00 History extended release quetiapine 50 mg tablet (Seroquel) 150 mg PO QHS mood 03/05/16 03/05/16 History gabapentin 300 mg capsule 600 mg PO QHS pain 12/12/22 Unknown History benztropine 1 mg tablet 1 mg PO BID mood 01/08/24 01/29/24 07:00 History risperidone 1 mg tablet 2 mg PO BID 01/08/24 Unknown History ascorbic acid (vitamin C) 500 mg 1,000 mg (2 x 500 mg) PO 01/09/24 Unknown Rx tablet DAILY@0800 #0 tabs lactulose 20 gram/30 mL oral 20 g (0.7055 x 20 gram/30 mL) PO 01/09/24 Unknown Rx solution BID #32 oz peg 3350-electrolytes 236 240 ml PO Q10M #4,000 mL 01/16/24 Unknown Rx gram-22.74 gram-6.74 gram-5.86 gram solution (Golytely) Allergy/AdvReac Type Severity Reaction Status Date / Time prednisone AdvReac Severe Other Verified 01/29/24 10:09 Family History Mother Heart disease Hypertension CAD (coronary artery disease) Myocardial infarction Father Heart disease Hypertension CAD (coronary artery disease) Myocardial infarction Surgical History S/P appendectomy Social History household members: family and other details: Lives with his sister (also guardian), prior was at nursing home. Smoking Status: Former smoker how long ago did patient quit smoking: Quit >2 ppd ~2 yrs prior, started in 20s. Transitioned to chew 1 can/day. alcohol intake: never substance use type: does not use Review of Systems (Anesthesia) ROS Narrative System reviewed and no additional complaints, except as documented.
--- NOTE | 2024-01-29 11:21 | OP.CCLET_ITS ---
01/29/2024 Leroy George [address] [place] [address] Re : [facility] This procedure was performed on January. My impressions and recommendations are as follows: Impressions : - Normal esophagus. - Erosive gastropathy with no stigmata of recent bleeding. Biopsied. - No gross lesions in the second portion of the duodenum. Recommendations : - Discharge patient to home. - Resume previous diet. - Continue present medications. My findings are described in the full procedure note, which is enclosed. If I can be of further assistance, please feel free to contact me at . Sincerely, Huber Villafuerte, 01/29/2024 11:21:21 AM This report has been signed electronically.
--- NOTE | 2024-01-29 11:21 | OP.EGD_ITS ---
Patient Name: Christofer Bull Procedure Date: 01/29/2024 10:27 AM Date of : 1980 Age: 43 Procedure: Upper GI endoscopy Indications: Epigastric abdominal pain Providers: Huber Villafuerte DO Referring MD: Leroy George Medicines: Monitored Anesthesia Care Patient Profile: This is a 43 year old male. Refer to note in patient chart for documentation of history and physical. Patient has symptoms. Complications: No immediate complications. Procedure: Pre-Anesthesia Assessment: - Prior to the procedure, a History and Physical was performed, and patient medications and allergies were reviewed. The risks and benefits of the procedure and the sedation options and risks were discussed with the patient. All questions were answered and informed consent was obtained. Patient identification and proposed procedure were verified by the physician in the pre-procedure area. Mental Status Examination: alert and oriented. Airway Examination: normal oropharyngeal airway and neck mobility. Respiratory Examination: clear to auscultation. CV Examination: normal. Prophylactic Antibiotics: The patient does not require prophylactic antibiotics. Prior Anticoagulants: The patient has taken no anticoagulant or antiplatelet agents. After reviewing the risks and benefits, the patient was deemed in satisfactory condition to undergo the procedure. The anesthesia plan was to use monitored anesthesia care (MAC). Immediately prior to administration of medications, the patient was re-assessed for adequacy to receive sedatives. The heart rate, respiratory rate, oxygen saturations, blood pressure, adequacy of pulmonary ventilation, and response to care were monitored throughout the procedure. The physical status of the patient was re-assessed after the procedure. After obtaining informed consent, the endoscope was passed under direct vision. Throughout the procedure, the patient's blood pressure, pulse, and oxygen saturations were monitored continuously. The Colonoscope was introduced through the mouth, and advanced to the second part of duodenum. The upper GI endoscopy was accomplished without difficulty. The patient tolerated the procedure well. Scope In: 10:40:07 AM Scope Out: 10:42:36 AM Total Procedure Duration Time 0 hours 2 minutes 29 seconds Findings: The examined esophagus was normal. Multiple 5 mm erosions with no stigmata of recent bleeding were found in the gastric fundus and in the gastric body. Biopsies were taken with a cold forceps for histology. Verification of patient identification for the specimen was done. Estimated blood loss was minimal. No gross lesions were noted in the second portion of the duodenum. Impression: - Normal esophagus. - Erosive gastropathy with no stigmata of recent bleeding. Biopsied. - No gross lesions in the second portion of the duodenum. Recommendation: - Discharge patient to home. - Resume previous diet. - Continue present medications. Procedure Code(s): --- Professional --- 53984, Esophagogastroduodenoscopy, flexible, transoral; with biopsy, single or multiple CPT copyright 2021 [employer]. All rights reserved. The codes documented in this report are preliminary and upon distribution a class lineman review may be revised to meet current compliance requirements. Huber Villafuerte DO 01/29/2024 11:21:21 AM This report has been signed electronically. Number of Addenda: 0 Note Initiated On: 01/29/2024 10:27 AM
--- NOTE | 2024-01-29 11:23 | PCM.POST.ANE ---
Anesthesia: Postop Eval I Current Vital Signs Temperature: 97.1 F Pulse Rate: 67 Blood Pressure: 115/64 Respiratory Rate: 16 Pulse Ox: 98 Oxygen Delivery Method: Nasal Cannula Oxygen Flow Rate (L/min): 2 Assessment Airway patent: Yes Spontaneous unlabored respirations: Yes Mental status: Awake nausea: No Vomiting: No Anesthesia Complication: No Fluid Hydration Crystalloid volume administer (ml): 800 Total IV fluid infused: 800 Progress Note Anesthesia document: Postop Eval 1 completed: Yes
--- NOTE | 2024-01-29 11:29 | OP.COLON_ITS ---
Patient Name: Christofer Bull Procedure Date: 01/29/2024 10:42 AM Date of : 1980 Age: 43 Procedure: Colonoscopy Indications: Abdominal pain in the left lower quadrant Providers: Huber Villafuerte DO Referring MD: Leroy George Medicines: Monitored Anesthesia Care Patient Profile: This is a 43 year old male. Refer to note in patient chart for documentation of history and physical. Patient has symptoms. This is a 43 year old male. Refer to note in patient chart for documentation of history and physical. Last Colonoscopy: date unknown. Unable to locate last colonoscopy report. Complications: No immediate complications. Procedure: Pre-Anesthesia Assessment: - Prior to the procedure, a History and Physical was performed, and patient medications and allergies were reviewed. The risks and benefits of the procedure and the sedation options and risks were discussed with the patient. All questions were answered and informed consent was obtained. Patient identification and proposed procedure were verified by the physician in the pre-procedure area. Mental Status Examination: alert and oriented. Airway Examination: normal oropharyngeal airway and neck mobility. Respiratory Examination: clear to auscultation. CV Examination: normal. Prophylactic Antibiotics: The patient does not require prophylactic antibiotics. Prior Anticoagulants: The patient has taken no anticoagulant or antiplatelet agents. After reviewing the risks and benefits, the patient was deemed in satisfactory condition to undergo the procedure. The anesthesia plan was to use monitored anesthesia care (MAC). Immediately prior to administration of medications, the patient was re-assessed for adequacy to receive sedatives. The heart rate, respiratory rate, oxygen saturations, blood pressure, adequacy of pulmonary ventilation, and response to care were monitored throughout the procedure. The physical status of the patient was re-assessed after the procedure. After I obtained informed consent, the scope was passed under direct vision. Throughout the procedure, the patient's blood pressure, pulse, and oxygen saturations were monitored continuously. The Colonoscope was introduced through the anus and advanced to the terminal ileum. The colonoscopy was performed without difficulty. The patient tolerated the procedure well. The quality of the bowel preparation was fair. The terminal ileum, ileocecal valve, appendiceal orifice, and rectum were photographed. Scope In: 10:44:26 AM Scope Withdrawal Time 0 hours 12 minutes 58 seconds Scope Out: 11:12:07 AM Total Procedure Duration Time 0 hours 27 minutes 41 seconds Findings: The perianal and digital rectal examinations were normal. Small-mouthed diverticula were found in the recto-sigmoid colon and sigmoid colon. Two sessile polyps were found in the hepatic flexure. The polyps were 1 to 2 mm in size. These polyps were removed with a cold snare. Resection and retrieval were complete. Verification of patient identification for the specimen was done. Impression: - Preparation of the colon was fair. - Diverticulosis in the recto-sigmoid colon and in the sigmoid colon. - Two 1 to 2 mm polyps at the hepatic flexure, removed with a cold snare. Resected and retrieved. Recommendation: - Await pathology results. - Repeat colonoscopy in 5 years for surveillance. - Continue present medications. Procedure Code(s): --- Professional --- 35668, Colonoscopy, flexible; with removal of tumor(s), polyp(s), or other lesion(s) by snare technique CPT copyright 2021 [employer]. All rights reserved. The codes documented in this report are preliminary and upon warp starter review may be revised to meet current compliance requirements. Huber Villafuerte DO 01/29/2024 11:29:10 AM This report has been signed electronically. Number of Addenda: 0 Note Initiated On: 01/29/2024 10:42 AM
--- NOTE | 2024-01-29 11:29 | OP.CCLET_ITS ---
01/29/2024 Leroy George [address] [place] [address] Re : Colonoscopy procedure for [facility] Dear Dr. George This procedure was performed on January. My impressions and recommendations are as follows: Impressions : - Preparation of the colon was fair. - Diverticulosis in the recto-sigmoid colon and in the sigmoid colon. - Two 1 to 2 mm polyps at the hepatic flexure, removed with a cold snare. Resected and retrieved. Recommendations : - Await pathology results. - Repeat colonoscopy in 5 years for surveillance. - Continue present medications. My findings are described in the full procedure note, which is enclosed. If I can be of further assistance, please feel free to contact me at . Sincerely, Huber Villafuerte, 01/29/2024 11:29:10 AM This report has been signed electronically.
--- NOTE | 2024-01-29 13:50 | PCM.POSTANE2 ---
Anesthesia Postop Eval I Sum Postop Eval Completion status Anesthesia document: Postop Eval 1 completed: Yes Anesthesia Postop Eval I Summary Anesthesia Postop Eval I Summary: Anesthesia Postop Eval I: Assessment Summary Airway patent Yes 01/29/24 11:24 [email or web address] Spontaneous unlabored Yes 01/29/24 11:24 [email or web address] respirations Mental status Awake 01/29/24 11:24 [email or web address] nausea No 01/29/24 11:24 [email or web address] Vomiting No 01/29/24 11:24 [email or web address] Anesthesia Postop Eval I: Fluid Summary Crystalloid volume administer 800 01/29/24 11:24 [email or web address] (ml) Colloids volume administered ( ml) Blood Product volume administered (ml) Total IV fluid infused 800 01/29/24 11:24 [email or web address] Anesthesia Postop Eval I: Summary Notes Anesthesia Complication No 01/29/24 11:24 [email or web address] Anesthesia Complication Comment: Post-operative progress note Anesthesia: Postop Eval II Evaluation Mental status: Awake Pain Level: 0 nausea: No Vomiting: No
== END 2024-01-29 11:46 | disposition home or self-care (01) ==
LOC: EN 09:42 → AC 09:43
PROVIDERS: PCP Family Medicine; Referring Provider Family Medicine; Visit Provider Internal Medicine Gastroenterology
PROC: 0DJD8ZZ Inspection of Lower Intestinal Tract, Via Natural or Artificial Opening Endoscopic (ICD-10-PCS; CPT 45378; principal; 2024-01-29 10:25)
DX: K57.30 Diverticulosis of large intestine without perforation or abscess without bleeding (principal); K63.5 Polyp of colon; R13.10 Dysphagia, unspecified; F41.9 Anxiety disorder, unspecified; F32.A Depression, unspecified; J45.909 Unspecified asthma, uncomplicated; K29.50 Unspecified chronic gastritis without bleeding; R10.13 Epigastric pain; Z87.891 Personal history of nicotine dependence; Z79.899 Other long term (current) drug therapy
CPT/HCPCS: 45385; 43239; 88305; 88342; J7120; J2405

== ENCOUNTER → 2024-02-16 | Outpatient (CLI) | payer MEDICAID, SELFPAY ==
--- NOTE | 2024-02-16 17:06 | RAD_ITS ---
INDICATION: Sitz marker EXAMINATION/TECHNIQUE: X-RAY - XR Abdomen 1 View COMPARISON: No relevant prior comparison study available FINDINGS: There are 2 Sitz markers overlying the rectum and rectosigmoid colon, several markers clustered and overlapping in the right midabdomen. Moderate amount of stool in the colon predominantly the right colon. No bowel obstruction. Blunting of left costophrenic angle small pleural effusion versus pleural thickening. RAD/Abdomen Single View IMPRESSION: Sitz markers as described. Electronically Signed: Sindy Magana MD at 8:12 EDT ,
== END | disposition home or self-care (01) ==
LOC: RAD 17:06
PROVIDERS: PCP Family Medicine; Referring Provider Student in an Organized Health Care Education/Training Program; Visit Provider Student in an Organized Health Care Education/Training Program
DX: K59.00 Constipation, unspecified (principal)
CPT/HCPCS: 74018

== ENCOUNTER → 2024-02-18 | Outpatient (CLI) | payer MEDICAID, SELFPAY ==
--- NOTE | 2024-02-18 13:33 | RAD_ITS ---
STUDY: X-RAY - ABDOMEN/PELVIS REASON FOR EXAM: Male, 43 years old. 6 markers. TECHNIQUE: Single AP view of the abdomen /pelvis on 3 images. COMPARISON: None. FINDINGS: Normal bowel gas pattern. Air seen to the rectum. Moderate amount of feces in the colon. 2 Sitzmarks markers projected over the rectosigmoid region. Normal soft tissue structures. Normal visualized osseous structures. RAD/Abdomen Single View IMPRESSION: 2 6 markers projected over the rectosigmoid region. Electronically Signed: Yoandy Morris MD at 14:42 EDT ,
== END | disposition home or self-care (01) ==
LOC: RAD 13:28
PROVIDERS: PCP Family Medicine; Referring Provider Student in an Organized Health Care Education/Training Program; Visit Provider Student in an Organized Health Care Education/Training Program
DX: K59.00 Constipation, unspecified (principal)
CPT/HCPCS: 74018